=== PATIENT | female | born 1955 | race African-American/Black ===

== ENCOUNTER 2017-03-04 08:07 | Inpatient (IN) | payer SELFPAY ==
[2017-03-04 08:59] LABS: ABSOLUTE BASOPHILS # (AUTO) 0.1 10^3/uL (0.0-0.2); ABSOLUTE EOSINOPHILS # (AUTO) 0.1 10^3/uL (0.0-0.6); ABSOLUTE LYMPHOCYTES (AUTO) 1.4 10^3/uL (0.5-4.7); ABSOLUTE MONOCYTES (AUTO) 0.9 10^3/uL (0.1-1.4); ABSOLUTE NEUT (AUTO) 12.3 10^3/uL (1.7-8.2); EOSINOPHILS % (AUTO) 0.7 % (0-6); HEMATOCRIT 39.5 % (36.0-47.0); HEMOGLOBIN 13.3 g/dL (12.0-15.5); HGB HCT DIFFERENCE 0.4; LYMPHOCYTES % (AUTO) 9.6 % (13-45); MEAN CORPUSCULAR HEMOGLOBIN 28.7 pg (27.0-33.4); MEAN CORPUSCULAR HGB CONC 33.7 g/dL (32.0-36.0); MEAN CORPUSCULAR VOLUME 85 fl (80-97); MONOCYTES % (AUTO) 6.4 % (3-13); RED BLOOD COUNT 4.64 10^6/uL (3.72-5.28); RED CELL DISTRIBUTION WIDTH 14.1 % (11.5-14.0); SEGMENTED NEUTROPHILS % (AUTO) 82.3 % (42-78); WHITE BLOOD COUNT 14.9 10^3/uL (4.0-10.5)
[2017-03-04] MEDS ORDERED: ONDANSETRON HCL 8 MG TABLET PO ONE (09:10)
[2017-03-04] MEDS ORDERED: NAPROXEN 250 MG TABLET PO ONE (09:10)
[2017-03-04 09:11] LABS: AMORPHOUS SEDIMENT,URINE TRACE /HPF; APPEARANCE,URINE SLIGHTLY-CLOUDY; BILIRUBIN,URINE NEGATIVE (NEGATIVE); GLUCOSE, URINE NEGATIVE (NEGATIVE); KETONES,URINE TRACE mg/dL (NEGATIVE); LEUKOCYTE ESTERASE,URINE NEGATIVE (NEGATIVE); NITRITE,URINE NEGATIVE (NEGATIVE); PROTEIN,URINE 100 mg/dL (NEGATIVE); URINE SPECIFIC GRAVITY 1.034
[2017-03-04 09:16] LABS: ALANINE AMINOTRANSFERASE 22 U/L (9-52); ALBUMIN 3.6 g/dL (3.5-5.0); ALKALINE PHOSPHATASE 162 U/L (38-126); ANION GAP 14 (5-19); ASPARTATE AMINO TRANSFERASE 19 U/L (14-36); BILIRUBIN,DIRECT 0.6 mg/dL (0.0-0.4); BILIRUBIN,TOTAL 0.7 mg/dL (0.2-1.3); BLOOD UREA NITROGEN 11 mg/dL (7-20); CALCIUM 9.2 mg/dL (8.4-10.2); CARBON DIOXIDE 32 mmol/L (22-30); CHLORIDE 94 mmol/L (98-107); CREATININE RESULT 0.83 mg/dL (0.52-1.25); GLUCOSE 121 mg/dL (75-110); LIPASE 16.6 U/L (23-300); SODIUM 139.5 mmol/L (137-145); TOTAL PROTEIN 7.7 g/dL (6.3-8.2)
[2017-03-04 09:26] LABS: POTASSIUM 3.1 mmol/L (3.6-5.0)
--- NOTE | 2017-03-04 10:51 | RADIOLOGY REPORT (SQ) ---
EXAM DESCRIPTION: CT ABD/PELVIS WITH IV ONLY COMPLETED DATE/TIME: 03/04/2017 10:10 am REASON FOR STUDY: suprapubic pain COMPARISON: None. TECHNIQUE: CT scan of the abdomen and pelvis performed using helical scanning technique with dynamic intravenous contrast injection. No oral contrast. Images reviewed with lung, soft tissue, and bone windows. Reconstructed coronal and sagittal MPR images reviewed. Delayed images for evaluation of the urinary system also acquired. All images stored on PACS. All CT scanners at this facility use dose modulation, iterative reconstruction, and/or weight based d osing when appropriate to reduce radiation dose to as low as reasonably achievable (ALARA). [facility]: Dose Right [facility]: CareDose [facility]: Dose Right [facility]: Teradose 4D [facility]: [facility] CONTRAST TYPE AND DOSE: contrast/concentration: Isovue 370.00 mg/ml; Total Contrast Delivered: 100.0 ml; Total Saline Delivered: 72.0 ml RENAL FUNCTION: GFR > 60. RADIATION DOSE: Up-to-date CT equipment and radiation dose reduction techniques were employed. CTDIv ol: 21.1 - 30.0 mGy. DLP: 2571 mGy-cm.. LIMITATIONS: None. FINDINGS: LOWER CHEST: No significant findings. No nodules or infiltrates. LIVER: Normal size. No masses. No dilated ducts. SPLEEN: Normal size. No focal lesions. PANCREAS: No masses. No significant calcifications. No adjacent inflammation or peripancreatic fluid collections. Pancreatic duct not dilated. GALLBLADDER: No identified stones by CT criteria. No inflammatory changes to suggest cholecystitis. ADRENAL GLANDS: No significant masses or asymmetry. RIGHT KIDNEY AND URETER: No solid masses. No significant calcifications. No hydronephrosis or hyd roureter. LEFT KIDNEY AND URETER: No solid masses. No significant calcifications. No hydronephrosis or hydr oureter. AORTA AND VESSELS: No aneurysm. No dissection. Renal arteries, SMA, celiac without stenosis. RETROPERITONEUM: No retroperitoneal adenopathy, hemorrhage or masses. BOWEL AND PERITONEAL CAVITY: Acute inflammatory change involving the sigmoid colon with apparent perf oration involving the posterior wall with contained 3.5 x 3.8 x 3 point cm fluid collection. No hodan s free air or pneumatosis. Small and large bowel loops otherwise normal. APPENDIX: Normal. PELVIS: Bladder is decompressed. There is a small amount of free fluid in the pelvis. Cystic left a dnexal mass which has a somewhat tubular morphologic appearance could represent paraovarian cyst vers us hydrosalpinx. Measuring 8.9 cm in maximal dimension. Possible right ovarian cyst measuring 4.1 c m. ABDOMINAL WALL: No masses. Fat containing periumbilical hernia. . BONES: Degenerative change without fracture or suspicious osseous lesion. OTHER: No other significant finding. IMPRESSION: ACUTE INFLAMMATORY CHANGE INVOLVING THE SIGMOID COLON WITH CONTAINED PERFORATION DETA ILED ABOVE. PRESUMABLY THIS REPRESENTS A PERFORATED DIVERTICULITIS WITH PERICOLONIC ABSCESS. A PERF ORATED COLON CANCER COULD ALSO HAVE THIS APPEARANCE THEREFORE RECOMMEND FOLLOWUP COLONOSCOPY. APPARENT RIGHT OVARIAN CYST AND IT LEFT-SIDED PAROVARIAN CYST VERSUS HYDROSALPINX. RECOMMEND FOLLOW- UP PELVIC ULTRASOUND WHICH CAN BE PERFORMED IN THE NONACUTE SETTING. TECHNICAL DOCUMENTATION: JOB ID: [id number] Quality ID # [id number]: Final reports with documentation of one or more dose reduction techniques (e.g., Au tomated exposure control, adjustment of the mA and/or kV according to patient size, use of iterative reconstruction technique) 2010 [employer]- All Rights Reserved
[2017-03-04] MEDS ORDERED: HYDROMORPHONE HCL INJ/PF 2 MG/ML AMPULE IV ONE (11:00)
[2017-03-04] MEDS ORDERED: NORMAL SALINE 1000 ML 1,000 ML IV ONE (11:00)
[2017-03-04] MEDS ORDERED: ERTAPENEM SODIUM INJ 1 GM VIAL IV ONE (11:00)
--- NOTE | 2017-03-04 11:00 | ER Document Report ---
ED General - General Chief Complaint: Abdominal Pain Stated Complaint: ABDOMINAL PAIN Time Seen by Provider: 03/04/17 08:24 Mode of Arrival: Ambulatory Information source: Patient Notes: 61-year-old female presents with complaints of suprapubic bilateral lower quadrant abdominal pain of approximately 6 day duration. Patient denies any fevers or chills denies any nausea vomiting or diarrhea patient notes she has had no burning on urination no difficulty no foul smell Patient has not had a colonoscopy in the past does not have a PCP here TRAVEL OUTSIDE OF THE [place] IN LAST 30 DAYS: No - HPI Onset: Last week Onset/Duration: Persistent Quality of pain: Achy Severity: Mild Pain Level: 1 Associated symptoms: Other Exacerbated by: Denies Relieved by: Denies Similar symptoms previously: No Recently seen / treated by doctor: No - Related Data Allergies/Adverse Reactions: No Known Allergies Allergy (Verified 03/04/17 08:16) Home Medications: Current Home Medications No Home Medications 03/04/17 [History] Past Medical History - Social History Smoking Status: Never Smoker Cigarette use (# per day): No Chew tobacco use (# tins/day): No Smoking Education Provided: No Frequency of alcohol use: None Drug Abuse: None Family History: Reviewed & Not Pertinent Patient has suicidal ideation: No Patient has homicidal ideation: No - Past Medical History Cardiac Medical History: Reports: Hx Hypertension Renal/ Medical History: Denies: Hx Peritoneal Dialysis Surgical Hx: Negative Review of Systems - Review of Systems Notes: REVIEW OF SYSTEMS: CONSTITUTIONAL : Denies fever, chills, or sweats. Denies recent illness. EENT: Denies eye, ear, throat, or mouth pain or symptoms. Denies nasal or sinus congestion or discharge. Denies throat, tongue, or mouth swelling or difficulty swallowing. CARDIOVASCULAR: Denies chest pain. Denies palpitations or racing or irregular heart beat. Denies ankle edema. RESPIRATORY: Denies cough, cold, or chest congestion. Denies shortness of breath, difficulty breathing, or wheezing. GASTROINTESTINAL: admits ot abd pain GENITOURINARY: Denies difficulty urinating, painful urination, burning, frequency, blood in urine, or discharge. FEMALE GENITOURINARY: Denies vaginal bleeding, heavy or abnormal periods, irregular periods. Denies vaginal discharge or odor. MUSCULOSKELETAL: Denies back or neck pain or stiffness. Denies joint pain or swelling. SKIN: Denies rash, lesions or sores. HEMATOLOGIC : Denies easy bruising or bleeding. LYMPHATIC: Denies swollen, enlarged glands. NEUROLOGICAL: Denies confusion or altered mental status. Denies passing out or loss of consciousness. Denies dizziness or lightheadedness. Denies headache. Denies weakness or paralysis or loss of use of either side. Denies problems with gait or speech. Denies sensory loss, numbness, or tingling. Denies seizures. PSYCHIATRIC: Denies anxiety or stress. Denies depression, suicidal ideation, or homicidal ideation. ALL OTHER SYSTEMS REVIEWED AND NEGATIVE. PHYSICAL EXAMINATION: GENERAL: Well-appearing, well-nourished and in no acute distress. HEAD: Atraumatic, normocephalic. EYES: Pupils equal round and reactive to light, extraocular movements intact, conjunctiva are normal. ENT: Nares patent, oropharynx clear without exudates. Moist mucous membranes. NECK: Normal range of motion, supple without lymphadenopathy LUNGS: Breath sounds clear to auscultation bilaterally and equal. No wheezes rales or rhonchi. HEART: Regular rate and rhythm without murmurs ABDOMEN: Soft, tender in the suprapubic bilateral lower quadrants with mild guarding Female : deferred Musculoskeletal: Normal range of motion, no pitting or edema. No cyanosis. NEUROLOGICAL: Cranial nerves grossly intact. Normal speech, normal gait. Normal sensory, motor exams PSYCH: Normal mood, normal affect. SKIN: Warm, Dry, normal turgor, no rashes or lesions noted. Dictation was performed using [employer] voice recognition software Physical Exam - Vital signs Vitals: Temp Pulse Resp BP Pulse Ox 97.8 F 97 20 152/94 H 100 03/04/17 08:08 03/04/17 08:08 03/04/17 08:08 03/04/17 08:08 03/04/17 08:08 Course - Re-evaluation Re-evalutation: 03/04/17 11:11 Patient was noted to have an elevated white count, given her level of discomfort a CT of the abdomen was immediately ordered which is concerning for a perforated diverticulitis versus colon cancer, I did contact regarding admission, iv antibiotics ordered - Vital Signs Vital signs: Temp Pulse Resp BP Pulse Ox 97.8 F 97 20 152/94 H 100 03/04/17 08:08 03/04/17 08:08 03/04/17 08:45 03/04/17 08:08 03/04/17 08:08 - Laboratory Result Diagrams: 03/04/17 08:48 03/04/17 08:48 Laboratory results interpreted by me: 03/04/17 03/04/17 03/04/17 08:48 08:48 08:48 WBC 14.9 H RDW 14.1 H Seg Neutrophils % 82.3 H Lymphocytes % 9.6 L Absolute Neutrophils 12.3 H Potassium 3.1 L Chloride 94 L Carbon Dioxide 32 H Glucose 121 H Direct Bilirubin 0.6 H Alkaline Phosphatase 162 H Lipase 16.6 L Urine Protein 100 H Urine Ketones TRACE H Urine Urobilinogen 4.0 H - Diagnostic Test Radiology reviewed: Image reviewed, Reports reviewed - Perforated diverticulitis noted
--- NOTE | 2017-03-04 12:50 | RADIOLOGY REPORT (SQ) ---
EXAM DESCRIPTION: U/S NON OB PEL TV W/DOPPLER COMPLETED DATE/TIME: 03/04/2017 12:41 pm REASON FOR STUDY: pelvic mass? COMPARISON: None. TECHNIQUE: Dynamic and static grayscale images acquired of the pelvis via transvaginal approach and recorded on PACS. Additional selected color Doppler and spectral images recorded. LIMITATIONS: LIMITED DUE TO BODY WALL ACOUSTICS. FINDINGS: UTERUS: Poorly visualized. No gross abnormality. ENDOMETRIAL STRIPE: Not confidently identified. CERVIX: No nabothian cysts. RIGHT OVARY: Ovary not visualized. RIGHT OVARY DOPPLER: Ovary not visualized. LEFT OVARY: Ovary not visualized. Septated cystic mass left adnexal with debris measuring 8.5 x 6.9 x 6.2 cm. No definite soft tissue component or color flow. LEFT OVARY DOPPLER: Ovary not visualized. FREE FLUID: None noted. OTHER: No other significant finding. MEASUREMENTS: UTERUS: 9.9 x 5.3 cm. ENDOMETRIAL STRIPE: Not visualized. RIGHT OVARY: Not visualized. LEFT OVARY: Not visualized. IMPRESSION: EXTREME LIMITED TRANSVAGINAL PELVIC ULTRASOUND. OVARIES ARE NOT CONFIDENTLY IDENTIFIED. COMPLEX CYSTIC MASS LEFT ADNEXAL CORRESPONDING TO FINDING ON CT. NO DEFINITE SOFT TISSUE COMPONENT HOWEVER DIFFERENTIAL REMAINS PAROVARIAN CYST OR HYDROSALPINX. RECOMMEND GYNECOLOGIC CONSULTATION. FOLLOW-UP PELVIC MRI MAY BE USEFUL FOR COMPLETE CHARACTERIZATION. TECHNICAL DOCUMENTATION: JOB ID: [id number]- All Rights Reserved
--- NOTE | 2017-03-04 12:57 | PDOC H&P ---
History of Present Illness Patient complains of: Abdominal pain History of Present Illness: ELIO COLEMAN is a 61 year old female Patient presents to the emergency department brought in by her friend complaining of a one-week history of abdominal pain multiple episodes of nausea and vomiting dark urine and last bowel movement 1 week ago. She denies previous episodes, history of abdominal problems. She has never had a colonoscopy. She was seen in the emergency department where she had a CT scan of the abdomen and pelvis without oral contrast which showed findings consistent with acute sigmoid inflammation due to diverticulitis versus malignancy. Surgery was consulted and she was advised admission. Patient states she has had a bottle of Pepto-Bismol several days ago without relief. She does not see a medical doctor does not take any medications. Past Medical History Cardiac Medical History: Reports: Hypertension Social History Smoking Status: Never Smoker Frequency of Alcohol Use: None Drugs: None Family History Family History: Reviewed & Not Pertinent, CVA Parental Family History Reviewed: Yes Children Family History Reviewed: Yes Sibling(s) Family History Reviewed.: Yes Medication/Allergy Home Medications: No Home Medications 03/04/17 Allergies/Adverse Reactions: No Known Allergies Allergy (Verified 03/04/17 08:16) Review of Systems Constitutional: PRESENT: as per HPI. ABSENT: chills, fever(s), headache(s), weight gain, weight loss Eyes: ABSENT: visual disturbances Ears: ABSENT: hearing changes Gastrointestinal: PRESENT: as per HPI Genitourinary: ABSENT: dysuria, hematuria Musculoskeletal: ABSENT: joint swelling Integumentary: ABSENT: rash, wounds Neurological: ABSENT: abnormal gait, abnormal speech, confusion, dizziness, focal weakness, syncope Physical Exam Vital Signs: Temp Pulse Resp BP Pulse Ox 98.2 F 92 18 156/84 H 95 03/04/17 11:29 03/04/17 11:29 03/04/17 11:29 03/04/17 11:29 03/04/17 11:29 Intake & Output 03/03/17 03/04/17 03/05/17 06:59 06:59 06:59 Weight 127.6 kg General appearance: PRESENT: no acute distress, other - She is sweating. Head exam: PRESENT: normocephalic Eye exam: PRESENT: EOMI Mouth exam: PRESENT: moist Neck exam: PRESENT: full ROM Respiratory exam: PRESENT: clear to auscultation pinky Cardiovascular exam: PRESENT: RRR Pulses: PRESENT: normal dorsalis pedis pul, +1 pedal pulses bilateral, +2 pedal pulses bilateral GI/Abdominal exam: PRESENT: diminished bowel sounds, other - Obese minimal tenderness in the pelvic region. No peritoneal signs no organomegaly. Psychiatric exam: PRESENT: appropriate affect Skin exam: PRESENT: other - Perspiring Results Laboratory Results: 03/04/17 08:48 03/04/17 08:48 03/04/17 03/04/17 03/04/17 08:48 08:48 08:48 WBC 14.9 H RBC 4.64 Hgb 13.3 Hct 39.5 MCV 85 MCH 28.7 MCHC 33.7 RDW 14.1 H Plt Count 324 Seg Neutrophils % 82.3 H Lymphocytes % 9.6 L Monocytes % 6.4 Eosinophils % 0.7 Basophils % 1.0 Absolute Neutrophils 12.3 H Absolute Lymphocytes 1.4 Absolute Monocytes 0.9 Absolute Eosinophils 0.1 Absolute Basophils 0.1 Sodium 139.5 Potassium 3.1 L Chloride 94 L Carbon Dioxide 32 H Anion Gap 14 BUN 11 Creatinine 0.83 Est GFR ( Amer) > 60 Est GFR (Non-Af Amer) > 60 Glucose 121 H Calcium 9.2 Total Bilirubin 0.7 AST 19 ALT 22 Alkaline Phosphatase 162 H Total Protein 7.7 Albumin 3.6 Lipase 16.6 L Urine Color DARK YELLOW Urine Appearance SLIGHTLY-CLOUDY Urine pH 5.0 Ur Specific [place] 1.034 Urine Protein 100 H Urine Glucose (UA) NEGATIVE Urine Ketones TRACE H Urine Blood NEGATIVE Urine Nitrite NEGATIVE Ur Leukocyte Esterase NEGATIVE Urine WBC (Auto) 7 Urine RBC (Auto) 5 Impressions: Abdomen/Pelvis CT 03/04/17 09:17 IMPRESSION: ACUTE INFLAMMATORY CHANGE INVOLVING THE SIGMOID COLON WITH CONTAINED PERFORATION DETAILED ABOVE. PRESUMABLY THIS REPRESENTS A PERFORATED DIVERTICULITIS WITH PERICOLONIC ABSCESS. A PERFORATED COLON CANCER COULD ALSO HAVE THIS APPEARANCE THEREFORE RECOMMEND FOLLOWUP COLONOSCOPY. APPARENT RIGHT OVARIAN CYST AND IT LEFT-SIDED PAROVARIAN CYST VERSUS HYDROSALPINX. RECOMMEND FOLLOW-UP PELVIC ULTRASOUND WHICH CAN BE PERFORMED IN THE NONACUTE SETTING. Note this is a limited study due to the absence of oral contrast. The patient has contrast in the right colon likely due to Pepto-Bismol effect Assessment & Plan - Diagnosis (1) Abdominal pain Plan: Assessment: The patient has 1 week history of abdominal pain, nausea vomiting leukocytosis pelvic tenderness and CT scan findings consistent with emili-sigmoid colonic inflammation. There also appears to be a extracolonic process possibly contained abscess. Absence of oral contrast in this region further delineation. Plan: 1. Keep on clear liquids, IV fluids, intravenous antibiotics. 2. Patient should undergo colonoscopic evaluation either hospitalization or thereafter pending her clinical performance (2) Colitis Plan: Above unclear whether this represents diverticular disease or malignancy of the sigmoid colon; again colonoscopic evaluation indicated (4) Pelvic mass in female Is this a current diagnosis for this admission?: YesPlan: Assessment to be clarified by transvaginal ultrasonography, consideration for gynecologic consultation. This may represent a tubo ovarian cyst, mass, or other collection. - Time Time Spent: 50 to 70 Minutes Critical Time spent with patient: 15-24 minutes Medications reviewed and adjusted accordingly: Yes Anticipated discharge: Home - Inpatient Certification Based on my medical assessment, after consideration of the patient's comorbidities, presenting symptoms, or acuity I expect that the services needed warrant INPATIENT care.: Yes I certify that my determination is in accordance with my understanding of Medicare's requirements for reasonable and necessary INPATIENT services [42 CFR 412.3e].: Yes Medical Necessity: Need For IV Fluids, Need for Pain Control, Need for IV Antibiotics
[2017-03-04] MEDS: POTASSI CL 40 MEQ/NS 1L 1,000 ML IV PRN ×2 (13:27→20:18)
[2017-03-04] MEDS ORDERED: POTASSIUM CHLORIDE 10 MEQ TABLET.SA PO ONE (14:00)
[2017-03-04] MEDS ORDERED: BUMETANIDE 1 MG TABLET PO SCH (18:00)
[2017-03-04] MEDS: KETOROLAC TROMETHAMINE INJ/PF 30 MG/1 ML SDV IV PRN (18:31)
[2017-03-05] MEDS: KETOROLAC TROMETHAMINE INJ/PF 30 MG/1 ML SDV IV PRN ×3 (00:56→12:21)
[2017-03-05] MEDS: POTASSI CL 40 MEQ/NS 1L 1,000 ML IV PRN ×3 (02:19→12:59)
--- NOTE | 2017-03-05 05:39 | PDOC CONSULTATION ---
Consultation Consult Date: 03/04/17 Attending physician:: NORMAN WATERS Consult reason:: 61 yo with admission for abdominal pain. Incidental finding of potential adnexal cyst History of Present Illness Admission Date/PCP: 03/04/17 12:46 Patient complains of: abdominal pain, nausea, vomiting History of Present Illness: ELIO COLEMAN is a 61 year old female Patient presents to the emergency department brought in by her friend complaining of a one-week history of abdominal pain multiple episodes of nausea and vomiting dark urine and last bowel movement 1 week ago. She denies previous episodes, history of abdominal problems. She has never had a colonoscopy. She was seen in the emergency department where she had a CT scan of the abdomen and pelvis without oral contrast which showed findings consistent with acute sigmoid inflammation due to diverticulitis versus malignancy. Surgery was consulted and she was advised admission. Patient states she has had a bottle of Pepto-Bismol several days ago without relief. She does not see a medical doctor does not take any medications. Past Medical History Cardiac Medical History: Reports: Hypertension Social History Smoking Status: Never Smoker Frequency of Alcohol Use: None Drugs: None Hx Prescription Drug Abuse: No - Advance Directive Resuscitation Status: Full Code Family History Family History: Reviewed & Not Pertinent, CVA Parental Family History Reviewed: Yes Children Family History Reviewed: Yes Sibling(s) Family History Reviewed.: Yes Medication/Allergy Home Medications: No Home Medications 03/04/17 Allergies/Adverse Reactions: No Known Allergies Allergy (Verified 03/04/17 08:16) Physical Exam - Physical Exam Vital Signs: Temp Pulse Resp BP Pulse Ox 98.4 F 100 17 172/56 H 98 03/04/17 23:10 03/04/17 23:10 03/04/17 23:10 03/04/17 23:10 03/04/17 23:10 Intake & Output 03/03/17 03/04/17 03/05/17 06:59 06:59 06:59 Intake Total 2371 Output Total 1500 Balance 871 Weight 128.3 kg General appearance: PRESENT: no acute distress Head exam: PRESENT: atraumatic GI/Abdominal exam: PRESENT: guarding, soft, tenderness Result Impressions: Abdomen/Pelvis CT 03/04/17 09:17 IMPRESSION: ACUTE INFLAMMATORY CHANGE INVOLVING THE SIGMOID COLON WITH CONTAINED PERFORATION DETAILED ABOVE. PRESUMABLY THIS REPRESENTS A PERFORATED DIVERTICULITIS WITH PERICOLONIC ABSCESS. A PERFORATED COLON CANCER COULD ALSO HAVE THIS APPEARANCE THEREFORE RECOMMEND FOLLOWUP COLONOSCOPY. APPARENT RIGHT OVARIAN CYST AND IT LEFT-SIDED PAROVARIAN CYST VERSUS HYDROSALPINX. RECOMMEND FOLLOW-UP PELVIC ULTRASOUND WHICH CAN BE PERFORMED IN THE NONACUTE SETTING. Transvaginal US 03/04/17 11:23 IMPRESSION: EXTREME LIMITED TRANSVAGINAL PELVIC ULTRASOUND. OVARIES ARE NOT CONFIDENTLY IDENTIFIED. COMPLEX CYSTIC MASS LEFT ADNEXAL CORRESPONDING TO FINDING ON CT. NO DEFINITE SOFT TISSUE COMPONENT HOWEVER DIFFERENTIAL REMAINS PAROVARIAN CYST OR HYDROSALPINX. RECOMMEND GYNECOLOGIC CONSULTATION. FOLLOW- UP PELVIC MRI MAY BE USEFUL FOR COMPLETE CHARACTERIZATION. Status: Imported from PACS Assessment & Plan - Diagnosis (1) Abdominal pain Qualifiers: Abdominal location: left lower quadrant Qualified Code(s): R10.32 - Left lower quadrant pain Is this a current diagnosis for this admission?: Yes (2) Colitis Is this a current diagnosis for this admission?: Yes (3) Obesity Qualifiers: Obesity type: unspecified obesity type Obesity classification: adult class 3 (BMI >= 40) Body mass index: BMI 50.0-59.9 (4) Pelvic mass in female Is this a current diagnosis for this admission?: Yes - Time Time Spent: 30 to 50 Minutes Critical Time spent with patient: Less than 15 minutes Medications reviewed and adjusted accordingly: Yes - Plan Summary Plan Summary: discussed with Dr. Lam and if/when patient has diagnostic lap, please feel free to contact DRAGGER for assistance if tube and ovary is affected. Pt has low risks for malignancy based on negative family history and simple fluid filled appearance of cyst on imaging. Would recommend tumor markers which I've ordered. If markers are raised, may consider [facility] Onc referral as outpatient.
[2017-03-05] MEDS ORDERED: BUMETANIDE 1 MG TABLET PO SCH (08:00)
[2017-03-05] MEDS: ERTAPENEM SODIUM 1 GM in NORMAL SALINE 50 ML IV SCH (09:27)
[2017-03-05 11:07] LABS: ANION GAP 14 (5-19); BLOOD UREA NITROGEN 9 mg/dL (7-20); CALCIUM 8.9 mg/dL (8.4-10.2); CHLORIDE 103 mmol/L (98-107); GLUCOSE 100 mg/dL (75-110); SODIUM 139.1 mmol/L (137-145)
[2017-03-05 11:13] LABS: CARBON DIOXIDE 22 mmol/L (22-30); POTASSIUM 4.4 mmol/L (3.6-5.0)
--- NOTE | 2017-03-05 16:43 | PDOC PROGRESS REPORT ---
Subjective Progress Note for:: 03/05/17 Subjective:: Today she feels better like to start on diet. Physical Exam Vital Signs: Temp Pulse Resp BP Pulse Ox 98.1 F 105 H 17 192/90 H 99 03/05/17 11:22 03/05/17 11:22 03/05/17 11:22 03/05/17 15:23 03/05/17 11:22 Intake & Output 03/04/17 03/05/17 03/06/17 06:59 06:59 06:59 Intake Total 2371 Output Total 1500 Balance 871 Weight 128.3 kg General appearance: PRESENT: no acute distress GI/Abdominal exam: PRESENT: other - Examined, much softer, no peritoneal signs no rigidity. Results Laboratory Results: 03/05/17 05:51 03/05/17 05:51 Sodium 139.1 Potassium 4.4 D Chloride 103 Carbon Dioxide 22 D Anion Gap 14 BUN 9 Creatinine 0.70 Est GFR ( Amer) > 60 Est GFR (Non-Af Amer) > 60 Glucose 100 Calcium 8.9 Impressions: Abdomen/Pelvis CT 03/04/17 09:17 IMPRESSION: ACUTE INFLAMMATORY CHANGE INVOLVING THE SIGMOID COLON WITH CONTAINED PERFORATION DETAILED ABOVE. PRESUMABLY THIS REPRESENTS A PERFORATED DIVERTICULITIS WITH PERICOLONIC ABSCESS. A PERFORATED COLON CANCER COULD ALSO HAVE THIS APPEARANCE THEREFORE RECOMMEND FOLLOWUP COLONOSCOPY. APPARENT RIGHT OVARIAN CYST AND IT LEFT-SIDED PAROVARIAN CYST VERSUS HYDROSALPINX. RECOMMEND FOLLOW-UP PELVIC ULTRASOUND WHICH CAN BE PERFORMED IN THE NONACUTE SETTING. Transvaginal US 03/04/17 11:23 IMPRESSION: EXTREME LIMITED TRANSVAGINAL PELVIC ULTRASOUND. OVARIES ARE NOT CONFIDENTLY IDENTIFIED. COMPLEX CYSTIC MASS LEFT ADNEXAL CORRESPONDING TO FINDING ON CT. NO DEFINITE SOFT TISSUE COMPONENT HOWEVER DIFFERENTIAL REMAINS PAROVARIAN CYST OR HYDROSALPINX. RECOMMEND GYNECOLOGIC CONSULTATION. FOLLOW- UP PELVIC MRI MAY BE USEFUL FOR COMPLETE CHARACTERIZATION. Assessment & Plan - Diagnosis (1) Abdominal pain Qualifiers: Abdominal location: left lower quadrant Qualified Code(s): R10.32 - Left lower quadrant pain Is this a current diagnosis for this admission?: YesPlan: Impression is that of acute sigmoid inflammatory process likely diverticulitis however cannot rule out occult neoplasm; deviated adnexal masses evaluated by OB /[facility]TE[facility] SERVICE SUPERVISOR, likely benign complex cyst. Overall patient is clinically improved Plan: 1. Start diet slowly 2. Will have internal medicine evaluate uncontrolled hypertension 3. Again suggested she continue to improve and anticipate discharge home in the next 24-48 hours with for outpatient endoscopic evaluation (2) Colitis Is this a current diagnosis for this admission?: Yes (3) Obesity Qualifiers: Obesity type: unspecified obesity type Obesity classification: adult class 3 (BMI >= 40) Body mass index: BMI 50.0-59.9 (4) Pelvic mass in female Is this a current diagnosis for this admission?: Yes
[2017-03-05] MEDS ORDERED: MORPHINE SULFATE 10 MG/ML INJ IV PRN (16:56)
[2017-03-05] MEDS ORDERED: LOSARTAN POTASSIUM 50 MG TABLET PO ONE (17:15)
[2017-03-05] MEDS: MORPHINE SULFATE 10 MG/ML INJ IV PRN ×2 (17:23→21:30)
[2017-03-05] MEDS: DEXTROSE 5%-1/2 NORMAL SALINE 1,000 ML IV PRN (17:28)
[2017-03-05 17:46] LABS: ABSOLUTE BASOPHILS # (AUTO) 0.1 10^3/uL (0.0-0.2); ABSOLUTE EOSINOPHILS # (AUTO) 0.1 10^3/uL (0.0-0.6); ABSOLUTE LYMPHOCYTES (AUTO) 1.5 10^3/uL (0.5-4.7); ABSOLUTE MONOCYTES (AUTO) 1.2 10^3/uL (0.1-1.4); BASOPHILS % (AUTO) 0.5 % (0-2); EOSINOPHILS % (AUTO) 0.5 % (0-6); HEMATOCRIT 39.2 % (36.0-47.0); HEMOGLOBIN 12.9 g/dL (12.0-15.5); HGB HCT DIFFERENCE -0.5; LYMPHOCYTES % (AUTO) 9.2 % (13-45); MEAN CORPUSCULAR HEMOGLOBIN 28.2 pg (27.0-33.4); MEAN CORPUSCULAR VOLUME 85 fl (80-97); MONOCYTES % (AUTO) 7.4 % (3-13); RED CELL DISTRIBUTION WIDTH 13.9 % (11.5-14.0); SEGMENTED NEUTROPHILS % (AUTO) 82.4 % (42-78); WHITE BLOOD COUNT 15.8 10^3/uL (4.0-10.5)
[2017-03-05 18:07] LABS: URINE BARBITURATES SCREEN NEGATIVE; URINE METHADONE SCREEN NEGATIVE; URINE OPIATES LOW NEGATIVE; URINE PHENCYCLIDINE SCREEN NEGATIVE
--- NOTE | 2017-03-05 18:24 | CONSULTATION REPORT E ---
Consultation Report NAME: ELIO COLEMAN : 1955 AGE: 61Y DATE: 03/05/2017 ROOM: 430 A TO: ELIO CAMARGO M.D. FROM: LOUISA GARCIA M.D. Requesting Physician PRIMARY CARE PHYSICIAN: None. REASON FOR CONSULTATION: Uncontrolled hypertension. CHIEF COMPLAINT: Abdominal pain. HISTORY OF PRESENT ILLNESS: The patient is a 61-year-old female who presented to the emergency department with approximately 1 week of abdominal pain. She reports she could not eat, she had a crampy abdominal pain, and her last bowel movement was approximately 1 week ago. Patient reports that she has not had much of an improvement in her abdominal pain and she has yet to have a bowel movement at this time. Patient reports that she normally is able to walk greater than a mile without any difficulty with her breathing. Patient currently denies any chest pain, shortness of breath, extremity swelling. She reports her nausea and vomiting has improved. PAST MEDICAL HISTORY: She denies, although she has not seen a doctor in more than 5 years. PAST SURGICAL HISTORY: None. SOCIAL HISTORY: She denies tobacco, denies alcohol, denies illicit drugs. FAMILY HISTORY: Her mother of COPD and her father is currently alive and reports that he is healthy. CODE STATUS: She is FULL CODE. Her significant other, Ervin Carpenter, is her surrogate decision maker. MEDICATIONS: She takes no home medication. She does report taking keua-[id number]-[id number] Aleve and Pepto-Bismol. ALLERGIES: She reports no drug allergies. REVIEW OF SYSTEMS: CONSTITUTIONAL: Patient admits to antecedent fever and chills, subjective, as well as fatigue and anorexia prior to admission. EYES: Denies visual disturbance, but wears glasses. EARS: Denies hearing changes. NOSE, MOUTH, THROAT: Denies mouth pain, sore throat, headache. CARDIOVASCULAR: Denies chest pain, dyspnea on exertion, edema, orthopnea, and palpitations. RESPIRATORY: Denies dyspnea, cough, hemoptysis, sputum production. ABDOMEN: Admits to abdominal pain, bloating, constipation, nausea and vomiting. Denies melena and hematochezia. GENITOURINARY: Denies dysuria, hematuria, nocturia. MUSCULOSKELETAL: Admits to occasional arthritic right shoulder and bilateral knee pains. INTEGUMENTARY: Denies rash, lesion, or wound. NEUROLOGIC: Denies numbness, weakness, dizziness, syncope, paresthesia. PSYCHIATRIC: Denies SI or HI. Denies hallucinations or delusions. Denies depression or anxiety. ENDOCRINE: Denies polydipsia, polyuria, polyphagia. Denies hot or cold intolerance. Admits to facial hair. HEMATOLOGIC/LYMPHATIC: Denies easy bleeding or bruising. PHYSICAL EXAMINATION: VITAL SIGNS: The patient's temperature is 98.1, pulse of 105, blood pressure recorded at 192/90, respiratory rate of 17, saturation of 99% on room air. GENERAL: The patient is a well-fed, well-nourished, obese female who appears to be slightly pale. HEENT: Patient is atraumatic, normocephalic. Her pupils are equal, round, and reactive to light and accommodation. Extraocular movements are intact. She has no scleral icterus. Her conjunctivae is pink and non-injected. Mucosa is moist. NECK: Patient's neck is supple without JVD, lymphadenopathy, or thyromegaly. Her trachea is midline. CHEST: Examination is nontender to palpation. CARDIOVASCULAR: Regular rate and rhythm without appreciable murmur, rub, or gallop, but is limited by her body habitus. RESPIRATORY: Clear to auscultation bilaterally without wheezes, rhonchi, or rales. ABDOMEN: Protuberant, distended, firm, but not rigid, and diffusely tender to palpation with voluntary guarding. Patient has notable absence of bowel sounds. GENITOURINARY: Deferred. RECTAL: Deferred. MUSCULOSKELETAL: Strength is 5/5 in her upper and lower extremities and she has no deformities. VASCULAR: Patient has 2+ peripheral pulses. NEUROLOGIC: Cranial nerves 2-12 are grossly intact without focal deficits, and she is awake, alert, and oriented x3. PSYCHIATRIC: She has a normal mood and affect. INTEGUMENT: No appreciable rashes, lesions, or wounds. DIAGNOSTIC DATA: Laboratory studies are as follows: On 03/04, her white count was 14.9, hemoglobin of 13.3, hematocrit of 39.5, and platelets of 324. Today, her sodium is 139, potassium of 4.4, chloride 103, CO2 of 22, BUN of 9, creatinine of 0.7, glucose of 100, calcium of 8.9. CEA was 1.6 and CA-125 is currently pending. The patient's urine from 03/04/2017 reveals 100 protein with a specific gravity of 1.034, trace ketones, and a 4 urobilinogen, 7 *------*, trace bacteria, [address] findings and transvaginal ultrasound findings: CT of the abdomen and pelvis done on 03/04/2017 reveals acute inflammatory changes involving the sigmoid colon, which contains perforation as detailed above, presumably representing a perforated diverticulitis with pericolonic abscess, a perforated colon cancer could also have the same appearance, therefore, recommend followup colonoscopy. Apparent right ovarian cyst and left-sided paraovarian cyst versus hydrosalpinx. Transvaginal ultrasound done on 03/04/2017 reveals extremely limited with a septated left adnexal mass with debris measuring 8.5 x 6.9 x 6.2 cm. Again, with differential including paraovarian cyst or hydrosalpinx. IMPRESSION: This is a 61-year-old female with: 1. Acute diverticulitis with a perforation with abscess formation. 2. Sepsis secondary to #1. 3. Hypertensive urgency. 4. Morbid obesity with a BMI of 50.1. 5. Left paraovarian mass. 6. Hypokalemia, improved. 7. Dehydration, improved. PLAN: 1. For the patient's ruptured diverticulum and abdominal abscess, I deferred this and all matters related to this and her sepsis condition to the primary surgical team. I do agree with their use of a carbapenem or the use of Zosyn at this time for this. Recommend that this be surgically drained or done through IR. 2. Ovarian mass: For this condition, defer to L[facility] COATER who was consulted on this case. 3. For the patient's hypertensive urgency, will initiate patient on Cozaar 50 mg p.o. q. 12 and Norvasc 10 mg p.o. every bedtime with a goal systolic of less than 165. Will add IV hydralazine 10 mg IV q. 4 p.r.n. systolic greater 165 for this condition. At this time, I also feel that the patient's extreme hypertension is likely related to her worsening intraabdominal process, as the patient does appear to be quite tender at this time and recommend adequate pain management. Will stop Toradol as this can also raise the patient's blood pressure, and she does also report taking Aleve at home, which can also worsen her blood pressure. Will initiate patient on morphine 5 mg IV q. 4 p.r.n. and obtain UDS. Will also stop the patient's IV fluids, as she is likely becoming mildly volume overloaded at this time. Place her on D5 half at 63 an hour, as the patient is currently n.p.o. Have discussed with patient a 2,000 mg sodium restriction upon discharge and will place patient educator consultation for hypertension. 4. For the patient's DVT prophylaxis, will place SCD's and SLAVA hose and recommend that primary surgical team selects VTE prophylaxis due to the possibility of surgery. 5. For the patient's code status, she is, again, a FULL CODE and her significant other is her surrogate decision maker. TIME SPENT: Total time spent with patient including physical examination, coordination of care, and discussion with patient and primary team was 45 minutes. At this time, we thank our surgical colleagues kindly for this interesting consult and we will sign off of this case. DICTATING PHYSICIAN: ELIO CAMARGO M.D. [id number] PHY#: [id number] ID: [id number] JOB#: [id number] ACCT: [id number] cc:ELIO CAMARGO M.D. >
[2017-03-05] MEDS: HYDRALAZINE HCL INJ/PF 20 MG/1 ML SDV IV PRN ×2 (19:50→23:24)
[2017-03-05] MEDS: AMLODIPINE BESYLATE 10 MG TABLET PO SCH (21:30)
[2017-03-06] MEDS: MORPHINE SULFATE 10 MG/ML INJ IV PRN ×4 (04:27→21:58)
[2017-03-06] MEDS: HYDRALAZINE HCL INJ/PF 20 MG/1 ML SDV IV PRN (04:27)
--- NOTE | 2017-03-06 08:25 | Physician Advisory Note ---
Physician Advisor ProgressNote .: [facility] have reviewed the medical record for this patient. Physician Advisor Statement: Nice documentation of pt's morbid obesity, which undoubtedly makes eval of abd pain more difficult. Please consider documentin. "intestinal perforation w/abscess" 2. "hypertensive urgency" 3. STatus: Pt appropriate to change to Inpt status given developing/worsening tachycardia & leukocytosis with continued lack of BM output, continued abd pain , despite IVF & IV abx & continued NPO status, requiring morphine IV 3x already in the last (less than) 24hrs for pain control. Thanks! CK
[2017-03-06] MEDS: LOSARTAN POTASSIUM 50 MG TABLET PO SCH ×2 (09:16→21:53)
[2017-03-06] MEDS: ERTAPENEM SODIUM 1 GM in NORMAL SALINE 50 ML IV SCH (09:41)
--- NOTE | 2017-03-06 19:08 | PDOC PROGRESS REPORT ---
Subjective Subjective:: patient is hungry but still c/o left sided abdominal Physical Exam Vital Signs: Temp Pulse Resp BP Pulse Ox 99.7 F 100 16 147/77 H 97 03/06/17 16:00 03/06/17 16:00 03/06/17 16:00 03/06/17 16:00 03/06/17 16:00 Intake & Output 03/05/17 03/06/17 03/07/17 06:59 06:59 06:59 Intake Total 826 Balance 826 GI/Abdominal exam: PRESENT: tenderness - left side Results Impressions: Abdomen/Pelvis CT 03/04/17 09:17 IMPRESSION: ACUTE INFLAMMATORY CHANGE INVOLVING THE SIGMOID COLON WITH CONTAINED PERFORATION DETAILED ABOVE. PRESUMABLY THIS REPRESENTS A PERFORATED DIVERTICULITIS WITH PERICOLONIC ABSCESS. A PERFORATED COLON CANCER COULD ALSO HAVE THIS APPEARANCE THEREFORE RECOMMEND FOLLOWUP COLONOSCOPY. APPARENT RIGHT OVARIAN CYST AND IT LEFT-SIDED PAROVARIAN CYST VERSUS HYDROSALPINX. RECOMMEND FOLLOW-UP PELVIC ULTRASOUND WHICH CAN BE PERFORMED IN THE NONACUTE SETTING. Transvaginal US 03/04/17 11:23 IMPRESSION: EXTREME LIMITED TRANSVAGINAL PELVIC ULTRASOUND. OVARIES ARE NOT CONFIDENTLY IDENTIFIED. COMPLEX CYSTIC MASS LEFT ADNEXAL CORRESPONDING TO FINDING ON CT. NO DEFINITE SOFT TISSUE COMPONENT HOWEVER DIFFERENTIAL REMAINS PAROVARIAN CYST OR HYDROSALPINX. RECOMMEND GYNECOLOGIC CONSULTATION. FOLLOW- UP PELVIC MRI MAY BE USEFUL FOR COMPLETE CHARACTERIZATION. Assessment & Plan - Diagnosis (1) Colitis Is this a current diagnosis for this admission?: Yes - Plan Summary Plan Summary: A/ Left colitis vs. acute diverticulitis patient is still c/o left side abdominal discomfort P/ advance diet to low residue diet d/c home in AM on oral antibiotics follow up colonoscopy as outpatient once the episode of colitis or docerticulitis has resolved
[2017-03-06] MEDS: AMLODIPINE BESYLATE 10 MG TABLET PO SCH (21:52)
[2017-03-07] MEDS: DEXTROSE 5%-1/2 NORMAL SALINE 1,000 ML IV PRN (02:16)
[2017-03-07] MEDS: MORPHINE SULFATE 10 MG/ML INJ IV PRN ×3 (04:11→20:14)
[2017-03-07] MEDS: LOSARTAN POTASSIUM 50 MG TABLET PO SCH ×2 (10:10→21:11)
[2017-03-07] MEDS: ERTAPENEM SODIUM 1 GM in NORMAL SALINE 50 ML IV SCH (10:11)
--- NOTE | 2017-03-07 12:51 | EKG REPORT ---
SEVERITY:- BORDERLINE ECG - SINUS TACHYCARDIA BORDERLINE INFERIOR Q WAVES BORDERLINE T ABNORMALITIES, ANT-LAT LEADS : Confirmed by: Shanika Duncan MD 07-Mar-2017 12:50:45
[2017-03-07] MEDS ORDERED: DEXTROSE 40% GEL 15 GM TUBE PO PRN ×2 (14:56)
[2017-03-07] MEDS ORDERED: DEXTROSE 50%-WATER 25 GM/50 ML DISP.SYRIN IV PRN ×2 (14:56)
[2017-03-07] MEDS ORDERED: GLUCAGON,HUMAN RECOMB 1 MG INJ SUBCUT PRN (14:56)
[2017-03-07] MEDS ORDERED: NORMAL SALINE 1000 ML 1,000 ML IV PRN ×2 (14:59→15:45)
[2017-03-07] MEDS ORDERED: ACETAMINOPHEN 325 MG TABLET PO PRN (15:01)
--- NOTE | 2017-03-07 15:17 | PDOC PROGRESS REPORT ---
Subjective Progress Note for:: 03/07/17 Subjective:: patient not feeling well today, poor appetite, low grade fever (100) Physical Exam Vital Signs: Temp Pulse Resp BP Pulse Ox 99.1 F 108 H 20 149/68 H 96 03/07/17 11:55 03/07/17 11:55 03/07/17 11:55 03/07/17 11:55 03/07/17 11:55 Intake & Output 03/06/17 03/07/17 03/08/17 06:59 06:59 06:59 Intake Total 1782 Output Total 600 Balance 1182 Weight 130.6 kg Respiratory exam: PRESENT: clear to auscultation pinky Cardiovascular exam: PRESENT: RRR GI/Abdominal exam: PRESENT: tenderness - left lateral quadrant Results Impressions: Abdomen/Pelvis CT 03/04/17 09:17 IMPRESSION: ACUTE INFLAMMATORY CHANGE INVOLVING THE SIGMOID COLON WITH CONTAINED PERFORATION DETAILED ABOVE. PRESUMABLY THIS REPRESENTS A PERFORATED DIVERTICULITIS WITH PERICOLONIC ABSCESS. A PERFORATED COLON CANCER COULD ALSO HAVE THIS APPEARANCE THEREFORE RECOMMEND FOLLOWUP COLONOSCOPY. APPARENT RIGHT OVARIAN CYST AND IT LEFT-SIDED PAROVARIAN CYST VERSUS HYDROSALPINX. RECOMMEND FOLLOW-UP PELVIC ULTRASOUND WHICH CAN BE PERFORMED IN THE NONACUTE SETTING. Transvaginal US 03/04/17 11:23 IMPRESSION: EXTREME LIMITED TRANSVAGINAL PELVIC ULTRASOUND. OVARIES ARE NOT CONFIDENTLY IDENTIFIED. COMPLEX CYSTIC MASS LEFT ADNEXAL CORRESPONDING TO FINDING ON CT. NO DEFINITE SOFT TISSUE COMPONENT HOWEVER DIFFERENTIAL REMAINS PAROVARIAN CYST OR HYDROSALPINX. RECOMMEND GYNECOLOGIC CONSULTATION. FOLLOW- UP PELVIC MRI MAY BE USEFUL FOR COMPLETE CHARACTERIZATION. Assessment & Plan - Diagnosis (1) Colitis Is this a current diagnosis for this admission?: Yes - Plan Summary Plan Summary: A/ Perforated signoid colon with contained fluid collection/abscess patient not doing well clinically (anorexia, low grade temperature P/ Repeat CT scan A/P today CBC, BMP, PT/PTT possible IR drainage of fluid collection today/tomorrow Start Levaquin Flagyl Stop Invanz
[2017-03-07 15:52] LABS: PARTIAL THROMBOPLASTIN TIME 34.4 SEC (23.5-35.8); PROTHROMBIN TIME 14.7 SEC (11.4-15.4)
[2017-03-07] MEDS ORDERED: METRONIDAZOLE RTU 500 MG/NS 100 ML IV ONE (16:00)
[2017-03-07] MEDS ORDERED: METRONIDAZOLE 500 MG/NS RTU 100 ML IV ONE (16:00)
[2017-03-07] MEDS ORDERED: LEVOFLOXACIN RTU 750 MG/D5W 150 ML IV SCH (16:00)
[2017-03-07] MEDS: LEVOFLOXACIN 750 MG/D5W RTU 750 MG/150 ML RTUPB IV SCH (17:40)
[2017-03-07 17:50] LABS: HEMATOCRIT 36.4 % (36.0-47.0); HGB HCT DIFFERENCE -0.4; MEAN CORPUSCULAR HEMOGLOBIN 28.2 pg (27.0-33.4); MEAN CORPUSCULAR HGB CONC 32.9 g/dL (32.0-36.0); MEAN CORPUSCULAR VOLUME 86 fl (80-97); RED BLOOD COUNT 4.25 10^6/uL (3.72-5.28); RED CELL DISTRIBUTION WIDTH 13.9 % (11.5-14.0); WHITE BLOOD COUNT 13.8 10^3/uL (4.0-10.5)
[2017-03-07 17:57] LABS: ALANINE AMINOTRANSFERASE 24 U/L (9-52); ALBUMIN 2.8 g/dL (3.5-5.0); ALKALINE PHOSPHATASE 123 U/L (38-126); ANION GAP 11 (5-19); ASPARTATE AMINO TRANSFERASE 23 U/L (14-36); BILIRUBIN,DIRECT 0.5 mg/dL (0.0-0.4); BILIRUBIN,TOTAL 0.6 mg/dL (0.2-1.3); BLOOD UREA NITROGEN 6 mg/dL (7-20); CALCIUM 8.4 mg/dL (8.4-10.2); CARBON DIOXIDE 27 mmol/L (22-30); CHLORIDE 92 mmol/L (98-107); CREATININE RESULT 0.77 mg/dL (0.52-1.25); GLUCOSE 108 mg/dL (75-110); POTASSIUM 3.5 mmol/L (3.6-5.0); SODIUM 130.2 mmol/L (137-145); TOTAL PROTEIN 6.3 g/dL (6.3-8.2)
[2017-03-07] MEDS ORDERED: LEVOFLOXACIN 750 MG/D5W RTU 750 MG/150 ML RTUPB IV SCH (18:00)
[2017-03-07 18:19] LABS: BAND NEUTROPHILS % (MANUAL) 2 % (3-5); BASOPHILS % (MANUAL) 0 % (0-2); EOSINOPHILS % (MANUAL) 1 % (0-6); LYMPHOCYTES % (MANUAL) 10 % (13-45); TOTAL CELLS COUNTED 100
[2017-03-07 18:20] LABS: TOXIC GRANULATION SLIGHT
--- NOTE | 2017-03-07 20:14 | RADIOLOGY REPORT (SQ) ---
EXAM DESCRIPTION: CT ABD/PELVIS WITH IV ORAL COMPLETED DATE/TIME: 03/07/2017 7:42 pm REASON FOR STUDY: f/u intraabdominal abscess COMPARISON: None. TECHNIQUE: CT scan of the abdomen and pelvis performed using helical scanning technique with dynamic intravenous contrast injection. No oral contrast. Images reviewed with lung, soft tissue, and bone windows. Reconstructed coronal and sagittal MPR images reviewed. Delayed images for evaluation of the urinary system also acquired. All images stored on PACS. All CT scanners at this facility use dose modulation, iterative reconstruction, and/or weight based d osing when appropriate to reduce radiation dose to as low as reasonably achievable (ALARA). [facility]: Dose Right [facility]: CareDose [facility]: Dose Right [facility]: Teradose 4D [facility]: OrangeScape CONTRAST TYPE AND DOSE: contrast/concentration: Isovue 370.00 mg/ml; Total Contrast Delivered: 100.0 ml; Total Saline Delivered: 35.0 ml RENAL FUNCTION: Creatinine 0.7 RADIATION DOSE: Up-to-date CT equipment and radiation dose reduction techniques were employed. CTDIv ol: 21.1 - 29.7 mGy. DLP: 2749 mGy-cm.. LIMITATIONS: None. FINDINGS: LOWER CHEST: No significant findings. No nodules or infiltrates. LIVER: Normal size. No masses. No dilated ducts. SPLEEN: Normal size. No focal lesions. PANCREAS: No masses. No significant calcifications. No adjacent inflammation or peripancreatic fluid collections. Pancreatic duct not dilated. GALLBLADDER: No identified stones by CT criteria. No inflammatory changes to suggest cholecystitis. ADRENAL GLANDS: No significant masses or asymmetry. RIGHT KIDNEY AND URETER: No solid masses. No significant calcifications. No hydronephrosis or hyd roureter. LEFT KIDNEY AND URETER: No solid masses. No significant calcifications. No hydronephrosis or hydr oureter. AORTA AND VESSELS: No aneurysm. No dissection. Renal arteries, SMA, celiac without stenosis. RETROPERITONEUM: No retroperitoneal adenopathy, hemorrhage or masses. BOWEL AND PERITONEAL CAVITY: The previously described inflammatory changes involving the sigmoid colo n an associated fluid collection shows interval progression as compared to the previous study. The i nflammatory changes appear more extensive in the fluid collection of appears interval increased in si ze. APPENDIX: Normal. PELVIS: The previously described cyst in the right pelvis and cystic left adnexal mass with a somewha t tubular morphologic appearance appears stable. ABDOMINAL WALL: No masses. Small umbilical hernia containing fat is again identified BONES: No significant or acute findings. OTHER: No other significant finding. IMPRESSION: Interval progression in the previously described inflammatory changes involving the sigm oid colon and and associated fluid collection as noted above. Other findings as noted above. TECHNICAL DOCUMENTATION: JOB ID: [id number] Quality ID # [id number]: Final reports with documentation of one or more dose reduction techniques (e.g., Au tomated exposure control, adjustment of the mA and/or kV according to patient size, use of iterative reconstruction technique) 2010 [employer]- All Rights Reserved
[2017-03-07] MEDS: METRONIDAZOLE 500 MG/NS RTU 100 ML IV SCH (21:11)
[2017-03-07] MEDS: AMLODIPINE BESYLATE 10 MG TABLET PO SCH (21:11)
[2017-03-08] MEDS: MORPHINE SULFATE 10 MG/ML INJ IV PRN ×3 (00:44→21:29)
[2017-03-08 04:37] LABS: ABSOLUTE EOSINOPHILS # (AUTO) 0.2 10^3/uL (0.0-0.6); ABSOLUTE MONOCYTES (AUTO) 1.3 10^3/uL (0.1-1.4); BASOPHILS % (AUTO) 0.3 % (0-2); EOSINOPHILS % (AUTO) 1.4 % (0-6); HEMATOCRIT 32.5 % (36.0-47.0); HGB HCT DIFFERENCE 0.5; LYMPHOCYTES % (AUTO) 8.1 % (13-45); MEAN CORPUSCULAR HEMOGLOBIN 28.4 pg (27.0-33.4); MEAN CORPUSCULAR HGB CONC 33.8 g/dL (32.0-36.0); MEAN CORPUSCULAR VOLUME 84 fl (80-97); MONOCYTES % (AUTO) 10.1 % (3-13); RED BLOOD COUNT 3.87 10^6/uL (3.72-5.28); SEGMENTED NEUTROPHILS % (AUTO) 80.1 % (42-78); WHITE BLOOD COUNT 12.5 10^3/uL (4.0-10.5)
[2017-03-08 05:06] LABS: ANION GAP 10 (5-19); BLOOD UREA NITROGEN 6 mg/dL (7-20); CARBON DIOXIDE 27 mmol/L (22-30); CHLORIDE 94 mmol/L (98-107); CREATININE RESULT 0.72 mg/dL (0.52-1.25); GLUCOSE 93 mg/dL (75-110); POTASSIUM 3.5 mmol/L (3.6-5.0); SODIUM 131.2 mmol/L (137-145)
[2017-03-08] MEDS: METRONIDAZOLE 500 MG/NS RTU 100 ML IV SCH ×3 (05:20→21:29)
[2017-03-08] MEDS: POTASSI CL 20 MEQ/50 ML RIDER 50 ML IV SCH ×2 (10:28→14:49)
[2017-03-08] MEDS: LOSARTAN POTASSIUM 50 MG TABLET PO SCH ×2 (10:28→21:29)
[2017-03-08] MEDS ORDERED: MIDAZOLAM 2 MG/2 ML INJ ONE (11:20)
[2017-03-08] MEDS ORDERED: FENTANYL CITRATE INJ/PF 100 MCG/2 ML AMPUL ONE ×2 (11:21→11:59)
--- NOTE | 2017-03-08 12:19 | PDOC PROGRESS REPORT ---
Subjective Progress Note for:: 03/08/17 Subjective:: patient not in her room as she is in Interventional Radiology for drainage of the retroperitoneal abscess Physical Exam Vital Signs: Temp Pulse Resp BP Pulse Ox 98.5 F 102 H 18 156/73 H 97 03/08/17 07:42 03/08/17 07:42 03/08/17 07:42 03/08/17 07:42 03/08/17 07:42 Intake & Output 03/07/17 03/08/17 03/09/17 06:59 06:59 06:59 Intake Total 1782 2218 Output Total 600 500 Balance 1182 1718 Weight 130.6 kg 132 kg Results Laboratory Results: 03/08/17 04:00 03/08/17 04:00 03/07/17 03/07/17 03/08/17 15:31 15:31 04:00 WBC 13.8 H 12.5 H RBC 4.25 3.87 Hgb 12.0 11.0 L Hct 36.4 32.5 L MCV 86 84 MCH 28.2 28.4 MCHC 32.9 33.8 RDW 13.9 14.0 Plt Count 242 229 Seg Neutrophils % Not Reportable 80.1 H Lymphocytes % Not Reportable 8.1 L Monocytes % Not Reportable 10.1 Eosinophils % Not Reportable 1.4 Basophils % Not Reportable 0.3 Absolute Neutrophils Not Reportable 10.0 H Absolute Lymphocytes Not Reportable 1.0 Absolute Monocytes Not Reportable 1.3 Absolute Eosinophils Not Reportable 0.2 Absolute Basophils Not Reportable 0.0 Sodium 130.2 L Potassium 3.5 L Chloride 92 L Carbon Dioxide 27 Anion Gap 11 BUN 6 L Creatinine 0.77 Est GFR ( Amer) > 60 Est GFR (Non-Af Amer) > 60 Glucose 108 Calcium 8.4 Total Bilirubin 0.6 AST 23 ALT 24 Alkaline Phosphatase 123 Total Protein 6.3 Albumin 2.8 L 03/08/17 04:00 WBC RBC Hgb Hct MCV MCH MCHC RDW Plt Count Seg Neutrophils % Lymphocytes % Monocytes % Eosinophils % Basophils % Absolute Neutrophils Absolute Lymphocytes Absolute Monocytes Absolute Eosinophils Absolute Basophils Sodium 131.2 L Potassium 3.5 L Chloride 94 L Carbon Dioxide 27 Anion Gap 10 BUN 6 L Creatinine 0.72 Est GFR ( Amer) > 60 Est GFR (Non-Af Amer) > 60 Glucose 93 Calcium 8.0 L Total Bilirubin AST ALT Alkaline Phosphatase Total Protein Albumin Impressions: Transvaginal US 03/04/17 11:23 IMPRESSION: EXTREME LIMITED TRANSVAGINAL PELVIC ULTRASOUND. OVARIES ARE NOT CONFIDENTLY IDENTIFIED. COMPLEX CYSTIC MASS LEFT ADNEXAL CORRESPONDING TO FINDING ON CT. NO DEFINITE SOFT TISSUE COMPONENT HOWEVER DIFFERENTIAL REMAINS PAROVARIAN CYST OR HYDROSALPINX. RECOMMEND GYNECOLOGIC CONSULTATION. FOLLOW- UP PELVIC MRI MAY BE USEFUL FOR COMPLETE CHARACTERIZATION. Abdomen/Pelvis CT 03/07/17 00:00 IMPRESSION: Interval progression in the previously described inflammatory changes involving the sigmoid colon and and associated fluid collection as noted above. Other findings as noted above. Assessment & Plan - Diagnosis (1) Colitis Is this a current diagnosis for this admission?: Yes - Plan Summary Plan Summary: A/ Diverticulitis of left colon with contained retroperitoneal abscess Abscess increased in size despite IV antibiotic treatment and conservative management as per CT dome on 03/07/17 WBC 12 P/ IR drainage of retroperitoneal abscess this AM Cx from abscess site pending after today's IR drainage: antibiotic coverage to be tailored according to cx Continue Levaquin/Flagyl for the time being
--- NOTE | 2017-03-08 13:35 | RADIOLOGY REPORT (SQ) ---
EXAM DESCRIPTION: CT DRAINAGE RETRO/PERITONEAL COMPLETED DATE/TIME: 03/08/2017 12:25 pm REASON FOR STUDY: intraabdominal abscess, fever COMPARISON: CT dated 03/07/2017. RADIATION DOSE: Up-to-date CT equipment and radiation dose reduction techniques were employed. CTDIv ol: 6.7 - 20.3 mGy. DLP: 1039 mGy-cm. mGy. LIMITATIONS: None. PROCEDURE: Procedure was discussed with the patient and the patient agreed to the procedure. Preliminary CT scanning to localize the entry site was performed. A site was marked in the left lowe r quadrant and time out was performed. Procedure was performed using CT fluoroscopy. Total exposure time: 15.1 s. IV sedation was administered and physician direction by the registered nurse using 2 milligrams of Ve rsed and 150 micrograms of fentanyl. Physiologic monitoring was provided before, during, and after se dation. The total sedation time was 30 minutes. Documentation face to face time, the performing proceduralist, spent monitoring the patient: 20minute s. After sterile skin prep with Betadine, local lidocaine for skin and deep tissue anesthesia, the absce ss collection in the left lower quadrant was localized. The needle was advanced into the abscess cav ity and 15 mL of purulent fluid aspirated and sent to the laboratory for testing. A guidewire was pl aced and the tract was sequentially dilated with subsequent placement of a 10 Greek all-purpose drai nage pigtail catheter. The pigtail was formed and locked and catheter was secured to the skin. The catheter was placed to closed suction. All CT scanners at this facility use dose modulation, iterative reconstruction, and/or weight based d osing when appropriate to reduce radiation dose to as low as reasonably achievable (ALARA). [facility]: Dose Right [facility]: CareDose [facility]: Dose Right [facility]: Teradose 4D [facility]: LOVE[employer]IGN FINDINGS: Placement of pigtail drainage catheter into the abscess collection in the left lower quadr ant with CT guidance with collection of purulent fluid. IMPRESSION: PLACEMENT OF PIGTAIL DRAINAGE CATHETER INTO THE ABSCESS COLLECTION IN THE LEFT LOWER CHELITA DRANT WITH CT GUIDANCE. COMMENT: Patient medication list reviewed:Yes- Quality ID# [id number]:Eligible professional attests to docu menting in the medical record they obtained, updated, or reviewed the patient's current medications.. TECHNICAL DOCUMENTATION: JOB ID: [id number] Quality ID #[id number]: Final reports for procedures using fluoroscopy that document radiation exposure kasey alis, or exposure time and number of fluorographic images (if radiation exposure indices are not avail able) Quality ID # [id number]: Final reports with documentation of one or more dose reduction techniques (e.g., Au tomated exposure control, adjustment of the mA and/or kV according to patient size, use of iterative reconstruction technique) 2010 [employer]- All Rights Reserved
[2017-03-08] MEDS: LEVOFLOXACIN 750 MG/D5W RTU 750 MG/150 ML RTUPB IV SCH (18:49)
[2017-03-08] MEDS: AMLODIPINE BESYLATE 10 MG TABLET PO SCH (21:29)
[2017-03-09 04:36] LABS: HEMATOCRIT 32.4 % (36.0-47.0); HEMOGLOBIN 11.1 g/dL (12.0-15.5); HGB HCT DIFFERENCE 0.9; MEAN CORPUSCULAR HEMOGLOBIN 28.9 pg (27.0-33.4); MEAN CORPUSCULAR HGB CONC 34.1 g/dL (32.0-36.0); MEAN CORPUSCULAR VOLUME 85 fl (80-97); RED BLOOD COUNT 3.82 10^6/uL (3.72-5.28); RED CELL DISTRIBUTION WIDTH 13.9 % (11.5-14.0); WHITE BLOOD COUNT 10.5 10^3/uL (4.0-10.5)
[2017-03-09 04:50] LABS: ANION GAP 10 (5-19); BLOOD UREA NITROGEN 6 mg/dL (7-20); CARBON DIOXIDE 29 mmol/L (22-30); CHLORIDE 97 mmol/L (98-107); CREATININE RESULT 0.65 mg/dL (0.52-1.25); GLUCOSE 91 mg/dL (75-110); POTASSIUM 3.3 mmol/L (3.6-5.0)
[2017-03-09 05:05] LABS: BAND NEUTROPHILS % (MANUAL) 2 % (3-5); EOSINOPHILS % (MANUAL) 4 % (0-6); LYMPHOCYTES % (MANUAL) 11 % (13-45)
[2017-03-09 05:06] LABS: RBC MORPHOLOGY COMMENT NORMO-CYTIC/CHROMIC
[2017-03-09 05:11] LABS: BASOPHILS % (MANUAL) 0 % (0-2)
[2017-03-09 05:19] LABS: TOTAL CELLS COUNTED 100
[2017-03-09] MEDS: METRONIDAZOLE 500 MG/NS RTU 100 ML IV SCH ×3 (05:43→22:56)
[2017-03-09] MEDS ORDERED: MAGNESIUM HYDROXIDE SUSP 30 ML UDCUP PO ONE (09:15)
[2017-03-09] MEDS: LOSARTAN POTASSIUM 50 MG TABLET PO SCH ×2 (09:16→22:56)
--- NOTE | 2017-03-09 11:02 | PDOC PROGRESS REPORT ---
Subjective Progress Note for:: 03/09/17 Subjective:: Feels much better after abscess drainage. Physical Exam Vital Signs: Temp Pulse Resp BP Pulse Ox 98.1 F 97 16 146/73 H 98 03/09/17 08:00 03/09/17 08:00 03/09/17 08:00 03/09/17 08:00 03/09/17 08:00 Intake & Output 03/08/17 03/09/17 03/10/17 06:59 06:59 06:59 Intake Total 2218 3250 Output Total 500 1475 Balance 1718 1775 Weight 132 kg 130 kg General appearance: PRESENT: no acute distress, cooperative Respiratory exam: PRESENT: clear to auscultation pinky Cardiovascular exam: PRESENT: RRR GI/Abdominal exam: PRESENT: other - Soft, nondistended, very mild lower abdominal tenderness. Results Laboratory Results: 03/09/17 03:57 03/09/17 03:57 03/09/17 03/09/17 03:57 03:57 WBC 10.5 RBC 3.82 Hgb 11.1 L Hct 32.4 L MCV 85 MCH 28.9 MCHC 34.1 RDW 13.9 Plt Count 225 Seg Neutrophils % Not Reportable Lymphocytes % Not Reportable Monocytes % Not Reportable Eosinophils % Not Reportable Basophils % Not Reportable Absolute Neutrophils Not Reportable Absolute Lymphocytes Not Reportable Absolute Monocytes Not Reportable Absolute Eosinophils Not Reportable Absolute Basophils Not Reportable Sodium 136.0 L Potassium 3.3 L Chloride 97 L Carbon Dioxide 29 Anion Gap 10 BUN 6 L Creatinine 0.65 Est GFR ( Amer) > 60 Est GFR (Non-Af Amer) > 60 Glucose 91 Calcium 8.0 L Impressions: Transvaginal US 03/04/17 11:23 IMPRESSION: EXTREME LIMITED TRANSVAGINAL PELVIC ULTRASOUND. OVARIES ARE NOT CONFIDENTLY IDENTIFIED. COMPLEX CYSTIC MASS LEFT ADNEXAL CORRESPONDING TO FINDING ON CT. NO DEFINITE SOFT TISSUE COMPONENT HOWEVER DIFFERENTIAL REMAINS PAROVARIAN CYST OR HYDROSALPINX. RECOMMEND GYNECOLOGIC CONSULTATION. FOLLOW- UP PELVIC MRI MAY BE USEFUL FOR COMPLETE CHARACTERIZATION. Abdomen/Pelvis CT 03/07/17 00:00 IMPRESSION: Interval progression in the previously described inflammatory changes involving the sigmoid colon and and associated fluid collection as noted above. Other findings as noted above. Retroperitoneal Abscess Drainage 03/08/17 00:00 IMPRESSION: PLACEMENT OF PIGTAIL DRAINAGE CATHETER INTO THE ABSCESS COLLECTION IN THE LEFT LOWER QUADRANT WITH CT GUIDANCE. Assessment & Plan - Diagnosis (1) Diverticulitis Qualifiers: Diverticulitis site: large intestine Diverticulitis complication: with abscess Is this a current diagnosis for this admission?: YesPlan: Status post drainage of pelvic abscess. Patient doing much better. Will start clear liquids today. If she continues to do well we will switch over to p.o. antibiotics tomorrow and start a regular diet tomorrow.
[2017-03-09] MEDS: LEVOFLOXACIN 750 MG/D5W RTU 750 MG/150 ML RTUPB IV SCH (15:55)
[2017-03-09] MEDS: MORPHINE SULFATE 10 MG/ML INJ IV PRN (22:56)
[2017-03-09] MEDS: AMLODIPINE BESYLATE 10 MG TABLET PO SCH (22:56)
[2017-03-10 04:39] LABS: HEMATOCRIT 31.2 % (36.0-47.0); HEMOGLOBIN 10.7 g/dL (12.0-15.5); HGB HCT DIFFERENCE 0.9; MEAN CORPUSCULAR HEMOGLOBIN 28.8 pg (27.0-33.4); MEAN CORPUSCULAR HGB CONC 34.4 g/dL (32.0-36.0); MEAN CORPUSCULAR VOLUME 84 fl (80-97); RED BLOOD COUNT 3.73 10^6/uL (3.72-5.28); RED CELL DISTRIBUTION WIDTH 13.9 % (11.5-14.0); WHITE BLOOD COUNT 7.6 10^3/uL (4.0-10.5)
[2017-03-10 04:52] LABS: ANION GAP 9 (5-19); BLOOD UREA NITROGEN 7 mg/dL (7-20); CALCIUM 8.1 mg/dL (8.4-10.2); CARBON DIOXIDE 27 mmol/L (22-30); CHLORIDE 100 mmol/L (98-107); GLUCOSE 92 mg/dL (75-110); POTASSIUM 3.6 mmol/L (3.6-5.0); SODIUM 136.1 mmol/L (137-145)
[2017-03-10 05:34] LABS: BAND NEUTROPHILS % (MANUAL) 1 % (3-5); BASOPHILS % (MANUAL) 0 % (0-2); EOSINOPHILS % (MANUAL) 2 % (0-6); LYMPHOCYTES % (MANUAL) 17 % (13-45); POLYCHROMASIA SLIGHT; SCHISTOCYTES SLIGHT; TEAR DROP CELLS SLIGHT; TOTAL CELLS COUNTED 100; TOXIC GRANULATION SLIGHT; TOXIC VACUOLATION PRESENT
[2017-03-10] MEDS: METRONIDAZOLE 500 MG/NS RTU 100 ML IV SCH ×3 (05:48→21:45)
[2017-03-10] MEDS: LOSARTAN POTASSIUM 50 MG TABLET PO SCH ×2 (10:54→21:45)
--- NOTE | 2017-03-10 13:19 | PROGRESS NOTE E ---
Progress Note NAME: ELIO COLEMAN : 1955 AGE: 61Y DATE: 03/10/2017 ROOM: 430 SUBJECTIVE: She is about 2 days post percutaneous drainage of diverticular abscess. She remains afebrile and her white count is down to 7.6. OBJECTIVE: Her abdomen is soft with just mild tenderness around the left lower quadrant drain site. PLAN: Increase her diet and put her on p.o. antibiotics in the next 24 hours. DICTATING PHYSICIAN: YOSEPH SINGH M.D. [id number] PHY#: [id number] ID: [id number] JOB#: [id number] ACCT: [id number] cc: >
[2017-03-10] MEDS: LEVOFLOXACIN 750 MG/D5W RTU 750 MG/150 ML RTUPB IV SCH (15:33)
[2017-03-10] MEDS: AMLODIPINE BESYLATE 10 MG TABLET PO SCH (21:45)
[2017-03-10] MEDS: MORPHINE SULFATE 10 MG/ML INJ IV PRN (21:45)
[2017-03-11 04:36] LABS: ABSOLUTE BASOPHILS # (AUTO) 0.1 10^3/uL (0.0-0.2); ABSOLUTE EOSINOPHILS # (AUTO) 0.3 10^3/uL (0.0-0.6); ABSOLUTE LYMPHOCYTES (AUTO) 1.8 10^3/uL (0.5-4.7); ABSOLUTE MONOCYTES (AUTO) 0.8 10^3/uL (0.1-1.4); ABSOLUTE NEUT (AUTO) 4.5 10^3/uL (1.7-8.2); BASOPHILS % (AUTO) 0.9 % (0-2); HEMATOCRIT 33.9 % (36.0-47.0); HEMOGLOBIN 11.2 g/dL (12.0-15.5); HGB HCT DIFFERENCE -0.3; LYMPHOCYTES % (AUTO) 24.1 % (13-45); MEAN CORPUSCULAR HEMOGLOBIN 28.4 pg (27.0-33.4); MEAN CORPUSCULAR HGB CONC 33.1 g/dL (32.0-36.0); MEAN CORPUSCULAR VOLUME 86 fl (80-97); MONOCYTES % (AUTO) 10.2 % (3-13); RED BLOOD COUNT 3.96 10^6/uL (3.72-5.28); RED CELL DISTRIBUTION WIDTH 14.4 % (11.5-14.0); SEGMENTED NEUTROPHILS % (AUTO) 60.8 % (42-78); WHITE BLOOD COUNT 7.3 10^3/uL (4.0-10.5)
[2017-03-11 04:46] LABS: ANION GAP 7 (5-19); BLOOD UREA NITROGEN 8 mg/dL (7-20); CARBON DIOXIDE 29 mmol/L (22-30); CHLORIDE 101 mmol/L (98-107); CREATININE RESULT 0.73 mg/dL (0.52-1.25); GLUCOSE 94 mg/dL (75-110); POTASSIUM 3.8 mmol/L (3.6-5.0); SODIUM 137.2 mmol/L (137-145)
[2017-03-11] MEDS: METRONIDAZOLE 500 MG TABLET PO SCH ×3 (05:40→21:32)
--- NOTE | 2017-03-11 09:01 | PDOC PROGRESS REPORT ---
Subjective Progress Note for:: 03/11/17 Subjective:: Pain left lower abdomen Physical Exam Vital Signs: Temp Pulse Resp BP Pulse Ox 97.6 F 89 18 136/81 H 98 03/11/17 07:23 03/11/17 07:23 03/11/17 07:23 03/11/17 07:23 03/11/17 07:23 Intake & Output 03/10/17 03/11/17 03/12/17 06:59 06:59 06:59 Intake Total 1680 2074 Output Total 2700 1630 Balance -1020 444 Weight 130 kg 129.5 kg GI/Abdominal exam: PRESENT: tenderness - left lower abdomen Results Laboratory Results: 03/11/17 04:18 03/11/17 04:18 03/11/17 03/11/17 04:18 04:18 WBC 7.3 RBC 3.96 Hgb 11.2 L Hct 33.9 L MCV 86 MCH 28.4 MCHC 33.1 RDW 14.4 H Plt Count 265 Seg Neutrophils % 60.8 Lymphocytes % 24.1 Monocytes % 10.2 Eosinophils % 4.0 Basophils % 0.9 Absolute Neutrophils 4.5 Absolute Lymphocytes 1.8 Absolute Monocytes 0.8 Absolute Eosinophils 0.3 Absolute Basophils 0.1 Sodium 137.2 Potassium 3.8 Chloride 101 Carbon Dioxide 29 Anion Gap 7 BUN 8 Creatinine 0.73 Est GFR ( Amer) > 60 Est GFR (Non-Af Amer) > 60 Glucose 94 Calcium 8.0 L Impressions: Transvaginal US 03/04/17 11:23 IMPRESSION: EXTREME LIMITED TRANSVAGINAL PELVIC ULTRASOUND. OVARIES ARE NOT CONFIDENTLY IDENTIFIED. COMPLEX CYSTIC MASS LEFT ADNEXAL CORRESPONDING TO FINDING ON CT. NO DEFINITE SOFT TISSUE COMPONENT HOWEVER DIFFERENTIAL REMAINS PAROVARIAN CYST OR HYDROSALPINX. RECOMMEND GYNECOLOGIC CONSULTATION. FOLLOW- UP PELVIC MRI MAY BE USEFUL FOR COMPLETE CHARACTERIZATION. Abdomen/Pelvis CT 03/07/17 00:00 IMPRESSION: Interval progression in the previously described inflammatory changes involving the sigmoid colon and and associated fluid collection as noted above. Other findings as noted above. Retroperitoneal Abscess Drainage 03/08/17 00:00 IMPRESSION: PLACEMENT OF PIGTAIL DRAINAGE CATHETER INTO THE ABSCESS COLLECTION IN THE LEFT LOWER QUADRANT WITH CT GUIDANCE. Assessment & Plan - Plan Summary Plan Summary: Diverticulitis with abscess s/p percutaneous drainage, lehr tender continue IV antibiotics and monitoring
[2017-03-11] MEDS: LOSARTAN POTASSIUM 50 MG TABLET PO SCH ×2 (09:37→21:32)
[2017-03-11] MEDS: LEVOFLOXACIN 750 MG TABLET PO SCH (16:14)
[2017-03-11] MEDS: AMLODIPINE BESYLATE 10 MG TABLET PO SCH (21:32)
[2017-03-12 04:53] LABS: HEMATOCRIT 34.3 % (36.0-47.0); HEMOGLOBIN 11.6 g/dL (12.0-15.5); HGB HCT DIFFERENCE 0.5; MEAN CORPUSCULAR HEMOGLOBIN 28.5 pg (27.0-33.4); MEAN CORPUSCULAR HGB CONC 33.8 g/dL (32.0-36.0); MEAN CORPUSCULAR VOLUME 84 fl (80-97); RED BLOOD COUNT 4.07 10^6/uL (3.72-5.28); RED CELL DISTRIBUTION WIDTH 13.8 % (11.5-14.0); WHITE BLOOD COUNT 6.5 10^3/uL (4.0-10.5)
[2017-03-12 04:54] LABS: ANION GAP 8 (5-19); BLOOD UREA NITROGEN 7 mg/dL (7-20); CALCIUM 8.3 mg/dL (8.4-10.2); CARBON DIOXIDE 28 mmol/L (22-30); CHLORIDE 101 mmol/L (98-107); CREATININE RESULT 0.68 mg/dL (0.52-1.25); GLUCOSE 93 mg/dL (75-110); POTASSIUM 3.7 mmol/L (3.6-5.0)
[2017-03-12 05:05] LABS: BAND NEUTROPHILS % (MANUAL) 1 % (3-5); BASOPHILS % (MANUAL) 0 % (0-2); EOSINOPHILS % (MANUAL) 3 % (0-6); LYMPHOCYTES % (MANUAL) 28 % (13-45); TOTAL CELLS COUNTED 100
[2017-03-12 05:08] LABS: PLATELET CLUMPS PRESENT; POIKILOCYTOSIS SLIGHT; POLYCHROMASIA SLIGHT; TEAR DROP CELLS SLIGHT; TOXIC GRANULATION SLIGHT; TOXIC VACUOLATION PRESENT
[2017-03-12] MEDS: METRONIDAZOLE 500 MG TABLET PO SCH ×2 (06:17→14:38)
[2017-03-12] MEDS ORDERED: ENOXAPARIN SODIUM INJ 40 MG/0.4 ML DISP.SYRIN SUBCUT SCH (08:00)
[2017-03-12] MEDS: LOSARTAN POTASSIUM 50 MG TABLET PO SCH (09:31)
[2017-03-12 11:54] VITALS: BP 163/65
--- NOTE | 2017-03-12 13:14 | DISCHARGE SUMMARY E ---
Discharge Summary NAME: ELIO COLEMAN : 1955 AGE: 61Y ADMITTED: 03/06/2017 DISCHARGED: 03/12/2017 ADMITTING DIAGNOSIS: Acute diverticulitis with a pericolonic abscess with a localized perforation. DISCHARGE DIAGNOSIS: Acute diverticulitis with a pericolonic abscess with a localized perforation, resolving abscess status post percutaneous drainage by Interventional Radiology. DISCHARGE MEDICATIONS: 1. Levofloxacin for the antibiotic. 2. Flagyl also for antibiotic. 3. Probiotic. FOLLOWUP/PLAN: Followup planned in 1 week in the surgical clinic. She is being discharged with a drain in place to be removed in the surgical clinic, because still draining some thick serous fluid. HOSPITAL COURSE: A very pleasant female patient, who presented with acute abdominal pain, turned out to be acute diverticulitis with a localized perforation with a localized abscess and for that, she was started on IV antibiotic. She also underwent a percutaneous drainage, which was successfully placed and has been draining. From that time, she is considerably improved with her pain and tenderness is much less. I have seen her yesterday and today, greatly improved, tolerating diet. Tenderness is very minimal. Afebrile. White count is normal. So, we will discharge her home. In the future, she may need a laparoscopic sigmoid colectomy based on her further course. At the time of discharge, the patient is doing very well. DICTATING PHYSICIAN: BREE RODRIGUEZ M.D. [id number] PHY#: [id number] ID: [id number] JOB#: [id number] ACCT: [id number] cc:Thuan LANE M.D. >
[2017-03-12] MEDS: LEVOFLOXACIN 750 MG TABLET PO SCH (16:15)
[2017-03-13 14:25] LABS: PATH REVIEW PATHOLOGIST REVIEWED
== END 2017-03-12 14:30 | disposition home or self-care (01) | DRG 392 ==
LOC: ER 08:07 → EH 12:46 → UNDOADMOB 13:32 → 4S 16:10 → OBSVTOIN 03-06 13:48 → 4N 03-11 16:15
PROVIDERS: ADMIT Surgery; ATTEND Surgery
PROC: 0W9G30Z Drainage of Peritoneal Cavity with Drainage Device, Percutaneous Approach (ICD-10-PCS; principal; 2017-03-08)
DX: K57.20 Diverticulitis of large intestine with perforation and abscess without bleeding (principal); Z68.43 Body mass index [BMI] 50.0-59.9, adult; I16.0 Hypertensive urgency; E86.0 Dehydration; E87.6 Hypokalemia; I10 Essential (primary) hypertension; E66.01 Morbid (severe) obesity due to excess calories
CPT/HCPCS: 36415; 49406; 74177; 76830; 80048; 80053; 80307; 81001; 82378; 83690; 85025; 85610; 85730; 86304; 86850; 86900; 86901; 87040; 87070; 87075; 87077; 87186; 87205; 93005; 93010; 93976; 94799; 96365; 96375; 99285; C1729; C1769; C1894; G0378; J0360; J1170; J1335; J1650; J1885; J1956; J2250; J2270; J3010; J3480; J3490; J7030; S0119

== ENCOUNTER → 2017-03-29 | Outpatient (CLI) | payer SELFPAY ==
--- NOTE | 2017-03-31 02:11 | RADIOLOGY REPORT (SQ) ---
EXAM DESCRIPTION: CT ABD/PELVIS NO ORAL OR IV COMPLETED DATE/TIME: 03/29/2017 1:45 pm REASON FOR STUDY: DIVERTICULITIS OF LARGE INTESTINES WITH PERFORATION K57.20 DVTRCLI OF LG INT W PE RFORATION AND ABSCESS W/O BLEED COMPARISON: CT abdomen pelvis 03/04/2017, 03/07/2017, 03/08/2017 TECHNIQUE: CT scan of the abdomen and pelvis performed without intravenous or oral contrast. Images reviewed with lung, soft tissue, and bone windows. Reconstructed coronal and sagittal MPR images revi ewed. All images stored on PACS. All CT scanners at this facility use dose modulation, iterative reconstruction, and/or weight based d osing when appropriate to reduce radiation dose to as low as reasonably achievable (ALARA). [facility]: Dose Right [facility]: CareDose [facility]: Dose Right [facility]: Teradose 4D [facility]: [employer] RADIATION DOSE: Up-to-date CT equipment and radiation dose reduction techniques were employed. CTDIv ol: 30.4 mGy. DLP: 1595 mGy-cm.mGy. LIMITATIONS: None. FINDINGS: The previously placed left lower quadrant pigtail catheter is along the lateral aspects of the distal descending colon. No residual abscess is identified. After this CT, the catheter was re moved without immediate complication. LOWER CHEST: Small hiatal hernia. No nodules or infiltrates. NON-CONTRASTED LIVER, SPLEEN, ADRENALS: Evaluation limited by lack of IV contrast. No identified sign ificant masses. PANCREAS: No masses. No peripancreatic inflammatory changes. GALLBLADDER: Nitrogen containing gallstones are present in the gallbladder. No gallbladder wall thic kening or pericholecystic fluid. RIGHT KIDNEY AND URETER: No suspicious masses. Assessment limited by lack of IV contrast. No signif icant calcifications. No hydronephrosis or hydroureter. LEFT KIDNEY AND URETER: No suspicious masses. Assessment limited by lack of IV contrast. No signifi cant calcifications. No hydronephrosis or hydroureter. AORTA AND RETROPERITONEUM: No aneurysm. No retroperitoneal masses or adenopathy. BOWEL AND PERITONEAL CAVITY: No obvious masses or inflammatory changes. No free fluid. Descending an d sigmoid colon diverticuli are present without CT signs of acute diverticulitis APPENDIX: Normal. PELVIS, BLADDER, AND ABDOMINAL WALL:Urinary bladder unremarkable. Enlarged fibroid uterus. In the l eft adnexa, a 9 x 4 cm cystic structures present which may represent a hydrosalpinx or ovarian cyst. This is similar compared to CT prior exams BONES: No significant findings. OTHER: No other significant finding. IMPRESSION: Resolved left lower quadrant diverticular abscess. Under the CT exam, the left lower qu adrant pigtail drainage catheter was removed without immediate complication. TECHNICAL DOCUMENTATION: JOB ID: [id number] Quality ID # [id number]: Final reports with documentation of one or more dose reduction techniques (e.g., Au tomated exposure control, adjustment of the mA and/or kV according to patient size, use of iterative reconstruction technique) 2010 [employer]- All Rights Reserved
== END ==
LOC: RAD 13:13
PROVIDERS: ATTEND Physician Assistant Surgical
DX: K57.20 Diverticulitis of large intestine with perforation and abscess without bleeding (principal)
CPT/HCPCS: 74176

== ENCOUNTER 2017-05-18 06:53 | Day surgery (SDC) | payer BC ==
[2017-05-18] MEDS ORDERED: NALOXONE HCL INJ/PF 0.4 MG/1 ML SDV ONE (07:09)
[2017-05-18] MEDS ORDERED: ONDANSETRON HCL INJ/PF 4 MG/2 ML SDV ONE (07:09)
[2017-05-18] MEDS ORDERED: GLYCOPYRROLATE INJ 0.4 MG/2 ML VIAL ONE (07:09)
[2017-05-18] MEDS ORDERED: GLUCAGON,HUMAN RECOMB 1 MG INJ ONE (07:10)
[2017-05-18] MEDS ORDERED: FLUMAZENIL INJ 0.5 MG/5 ML VIAL ONE (07:10)
[2017-05-18] MEDS ORDERED: EPINEPHRINE INJ 1 MG/10 ML DISP.SYRIN ONE (07:10)
[2017-05-18] MEDS: MIDAZOLAM 2 MG/2 ML INJ ONE ×3 (07:42→07:48)
[2017-05-18] MEDS: FENTANYL CITRATE INJ/PF 100 MCG/2 ML AMPUL ONE ×2 (07:44→07:50)
--- NOTE | 2017-05-18 08:15 | Operative Report ---
Operative Report DATE OF SURGERY: 05/18/17 PREOPERATIVE DIAGNOSIS: History of sigmoid colon perforation with drain placement POSTOPERATIVE DIAGNOSIS: 1. Post colitic changes of the sigmoid colon with rare diverticulum. 2. Otherwise normal colonoscopy OPERATION: Complete colonoscopy to cecum SURGEON: LOUISA GARCIA ANESTHESIA: Moderate Sedation TISSUE REMOVED OR ALTERED: None COMPLICATIONS: None ESTIMATED BLOOD LOSS: None INTRAOPERATIVE FINDINGS: See below PROCEDURE: Obtaining informed consent the patient was taken from the preoperative holding area to the main endoscopy suite where monitoring devices were attached to the patient. Plan and surgical timeout were conducted The patient was placed in the left lateral decubitus position with knees to chest. A perianal examination was performed. There was no visible or palpable anorectal pathology. Sphincter tone was felt to be normal. The flexible adult colonoscope was advanced through the anal rectal canal, all the way to the cecum. Utilization of the cecum was achieved and the ileocecal valve, the appendiceal orifice and transillumination of the anterior abdominal wall. This was an excellent study on the well-prepped bowel. The colonoscope was withdrawn slowly and methodically checked and the mucosa carefully. There was no evidence of tumor, stricture, bleeding or polyp. There were rare diverticula in the sigmoid colon; within the sigmoid colon there is moderate tortuosity but no binta stenosis, mass, or inflammatory changes. The scope was slowly withdrawn through the anal rectal canal. Complete visualization of the rectum was achieved with photodocumentation. The scope was withdrawn to the patient's anus. The patient tolerated the procedure well and was taken to the recovery area in stable condition. As patient is at average risk for colorectal carcinoma, should be an appropriate candidate for follow-up colonoscopy in 10 years, or sooner if symptoms develop
--- NOTE | 2017-05-18 08:16 | PDOC DISCHARGE SUMMARY ---
Discharge Summary (SDC) - Discharge Final Diagnosis: Status post sigmoid colon perforation with drain placement, inflammatory process resolved Date of Surgery: 05/18/17 Discharge Date: 05/18/17 Condition: Good Treatment or Instructions: [facility] [address] [address] POST ENDOSCOPY DISCHARGE INSTRUCTIONS 1. Diet: Start clear liquids that a regular diet as tolerated. 2. Resume all preoperative medications. All oral anticoagulants and aspirins can be resumed 24 hours after procedure. 3. If a polypectomy was performed some bleeding per rectum may occur. This should stop within 3 days. If not, please contact the office. 4. If you had a colonoscopy you may experience some bloating and delayed return of normal bowel function for several days, your regular bowel movement pattern should resume within a week. 5. Please contact [facility] at to make an appointment with Dr. Lam for 1 to 3 weeks following procedure. 6. If you have any questions or concerns regarding your care,treatment plan or follow up, please contact our office. 7. Per clinical guidelines we recommend you undergo a repeat colonoscopy in 10 years. Discharge Diet: As Tolerated Discharge Activity: Activity As Tolerated Home Care Assistance: None Needed Report the Following to Your Physician Immediately: Shortness of Breath, Increase in Pain, Fever over 101 Degrees
[2017-05-18 08:56] VITALS: BP 168/79
== END 2017-05-18 09:08 | disposition home or self-care (01) ==
LOC: END 06:53
PROVIDERS: ATTEND Surgery
PROC: 0DJD8ZZ Inspection of Lower Intestinal Tract, Via Natural or Artificial Opening Endoscopic (ICD-10-PCS; principal; 2017-05-18 07:30)
DX: Z12.11 Encounter for screening for malignant neoplasm of colon (principal); K57.30 Diverticulosis of large intestine without perforation or abscess without bleeding; M19.90 Unspecified osteoarthritis, unspecified site; I10 Essential (primary) hypertension; E66.9 Obesity, unspecified; Z79.1 Long term (current) use of non-steroidal anti-inflammatories (NSAID); Z68.42 Body mass index [BMI] 45.0-49.9, adult
CPT/HCPCS: 45378; J2250; J3010; J0171; J1610; J2310; J2405; J3490

== ENCOUNTER 2020-06-17 10:15 | Inpatient (IN) | payer MEDICARE ==
[2020-06-17] MEDS ORDERED: NORMAL SALINE 1000 ML 1,000 ML IV ONE ×4 (10:41→16:15)
--- NOTE | 2020-06-17 10:44 | ER Document Report ---
ED Medical Screen (RME) - General Chief Complaint: Abdominal Pain Stated Complaint: ABDOMINAL PAIN Time Seen by Provider: 06/17/20 10:37 Mode of Arrival: Ambulatory Information source: Patient Notes: 64-year-old female presents to ED complaint of left lower quadrant abdominal pain. She states she is not passing any stool she is not passing any gas and today she started getting nausea and vomiting. She states she had something similar this in 1999 and ended up having to go in and drink something but she does not know what. She does have a history of high blood pressure and arthritis does not smoke drink or use any illicit drugs I have greeted and performed a rapid initial assessment of this patient. A comprehensive ED assessment and evaluation of the patient, analysis of test results and completion of medical decision making process will be conducted by an additional ED providers. TRAVEL OUTSIDE OF THE [place] IN LAST 30 DAYS: No - Related Data Allergies/Adverse Reactions: No Known Allergies Allergy (Verified 05/18/17 07:17) Home Medications: amlodipine, aleve, probiotic Past Medical History - Social History Chew tobacco use (# tins/day): No Frequency of alcohol use: None Drug Abuse: None - Past Medical History Cardiac Medical History: Reports: Hx Hypertension Denies: Hx Coronary Artery Disease, Hx Heart Attack Pulmonary Medical History: Denies: Hx Asthma, Hx Bronchitis, Hx COPD, Hx Pneumonia Neurological Medical History: Denies: Hx Cerebrovascular Accident, Hx Seizures Renal/ Medical History: Denies: Hx Peritoneal Dialysis Musculoskeltal Medical History: Denies Hx Arthritis Past Surgical History: Denies: Hx Hysterectomy - Immunizations Hx Diphtheria, Pertussis, Tetanus Vaccination: No Physical Exam - Vital signs Vitals: Temp Pulse Resp BP Pulse Ox 97.8 F 111 H 20 185/78 H 98 06/17/20 10:24 06/17/20 10:24 06/17/20 10:24 06/17/20 10:24 06/17/20 10:24 Course - Vital Signs Vital signs: Temp Pulse Resp BP Pulse Ox 97.8 F 111 H 20 185/78 H 98 06/17/20 10:24 06/17/20 10:24 06/17/20 10:24 06/17/20 10:24 06/17/20 10:24
[2020-06-17] MEDS ORDERED: ONDANSETRON HCL INJ/PF 4 MG/2 ML SDV IV ONE (11:34)
[2020-06-17] MEDS ORDERED: MORPHINE SULFATE 10 MG/ML INJ IV ONE ×2 (11:35→16:16)
--- NOTE | 2020-06-17 11:57 | ER Document Report ---
ED General - General Chief Complaint: Abdominal Pain Stated Complaint: ABDOMINAL PAIN Time Seen by Provider: 06/17/20 10:37 Mode of Arrival: Ambulatory Information source: Patient TRAVEL OUTSIDE OF THE [place] IN LAST 30 DAYS: No - HPI Notes: Patient complains of several days of left lower quadrant abdominal pain. He got worse today so she came emergency room. It is constant. Is worse with movement and better with rest. She has been constipated and states she has had no bowel movement for approximately a week. She states the pain has been going on for approximately a week as well. Nausea with some vomiting yesterday. No fever sweats or chills. No similar history of previous pain. She denies any previous abdominal surgeries. - Related Data Allergies/Adverse Reactions: No Known Allergies Allergy (Verified 05/18/17 07:17) Home Medications: amlodipine, aleve, probiotic Past Medical History - General Information source: Patient - Social History Smoking Status: Never Smoker Chew tobacco use (# tins/day): No Frequency of alcohol use: None Drug Abuse: None Family History: Reviewed & Not Pertinent, CVA Patient has homicidal ideation: No - Past Medical History Cardiac Medical History: Reports: Hx Hypertension Denies: Hx Coronary Artery Disease, Hx Heart Attack Pulmonary Medical History: Denies: Hx Asthma, Hx Bronchitis, Hx COPD, Hx Pneumonia Neurological Medical History: Denies: Hx Cerebrovascular Accident, Hx Seizures Renal/ Medical History: Denies: Hx Peritoneal Dialysis Musculoskeletal Medical History: Denies Hx Arthritis Past Surgical History: Denies: Hx Hysterectomy - Immunizations Hx Diphtheria, Pertussis, Tetanus Vaccination: No Review of Systems - Review of Systems Constitutional: denies: Chills, Fever Cardiovascular: denies: Chest pain, Palpitations Respiratory: denies: Cough, Short of breath -: Yes All other systems reviewed and negative Physical Exam - Vital signs Vitals: Temp Pulse Resp BP Pulse Ox 97.8 F 111 H 20 185/78 H 98 06/17/20 10:24 06/17/20 10:24 06/17/20 10:24 06/17/20 10:24 06/17/20 10:24 Interpretation: Normal - General General appearance: Appears well, Alert - HEENT Head: Normocephalic, Atraumatic Eyes: Normal Pupils: PERRL - Respiratory Respiratory status: No respiratory distress Chest status: Nontender Breath sounds: Normal Chest palpation: Normal - Cardiovascular Rhythm: Tachycardia Heart sounds: Normal auscultation Murmur: No - Abdominal Inspection: Normal Distension: No distension Bowel sounds: Normal Tenderness: Tender - Left lower quadrant is tender to palpation. No rebound or guarding. Organomegaly: No organomegaly - Back Back: Normal, Nontender - Extremities General upper extremity: Normal inspection, Nontender, Normal color, Normal ROM, Normal temperature General lower extremity: Normal inspection, Nontender, Normal color, Normal ROM, Normal temperature, Normal weight bearing. No: Brit's sign - Neurological Neuro grossly intact: Yes Cognition: Normal Orientation: AAOx4 [place] Coma Scale Eye Opening: Spontaneous [place] Coma Scale Verbal: Oriented [place] Coma Scale Motor: Obeys Commands [place] Coma Scale Total: 15 Speech: Normal Motor strength normal: LUE, RUE, LLE, RLE Sensory: Normal - Psychological Associated symptoms: Normal affect, Normal mood - Skin Skin Temperature: Warm Skin Moisture: Dry Skin Color: Normal Course - Re-evaluation Re-evalutation: 06/17/20 16:07 Patient presents with left lower quadrant abdominal pain. CT scan shows diverticulitis with perforation and abscess. I called and discussed this patient with the radiologist who states that at this time is not amenable to interventional drainage. She is nontoxic-appearing. I have covered her with IV fluids pain medicine and antibiotics. I have discussed the case with the hospitalist who will admit the patient. - Vital Signs Vital signs: Temp Pulse Resp BP Pulse Ox 97.8 F 111 H 20 185/78 H 98 06/17/20 10:24 06/17/20 10:24 06/17/20 10:24 06/17/20 10:24 06/17/20 10:24 - Laboratory Result Diagrams: 06/17/20 12:15 06/17/20 12:15 Laboratory results interpreted by me: 06/17/20 06/17/20 06/17/20 12:15 12:15 13:01 WBC 13.5 H Hct 35.3 L RDW 14.2 H Lymph % (Auto) 7.2 L Absolute Neuts (auto) 11.4 H Seg Neutrophils % 84.6 H Sodium 134.8 L Chloride 97 L Alkaline Phosphatase 148 H Urine Protein 30 H Urine Urobilinogen 4.0 H - Diagnostic Test Radiology reviewed: Image reviewed, Reports reviewed Discharge - Discharge Clinical Impression: Diverticulitis of intestine with abscess Qualifiers: Diverticulitis site: large intestine Diverticulitis bleeding: without bleeding Qualified Code(s): K57.20 - Diverticulitis of large intestine with perforation and abscess without bleeding Condition: Serious Disposition: ADMITTED INPATIENT Admitting Provider: Miley (Hospitalist) Unit Admitted: Medical Floor
[2020-06-17 12:45] LABS: ABSOLUTE EOSINOPHILS # (AUTO) 0.1 10^3/uL (0.0-0.6); ABSOLUTE NEUT (AUTO) 11.4 10^3/uL (1.7-8.2); BASOPHILS % (AUTO) 0.4 % (0-2); EOSINOPHILS % (AUTO) 0.5 % (0-6); HEMATOCRIT 35.3 % (36.0-47.0); HEMOGLOBIN 12.1 g/dL (12.0-15.5); LYMPHOCYTES % (AUTO) 7.2 % (13-45); MEAN CORPUSCULAR HEMOGLOBIN 29.5 pg (27.0-33.4); MEAN CORPUSCULAR HGB CONC 34.3 g/dL (32.0-36.0); MEAN CORPUSCULAR VOLUME 86 fl (80-97); MONOCYTES % (AUTO) 7.3 % (3-13); PLATELET COUNT 267 10^3/uL (150-450); RED BLOOD COUNT 4.11 10^6/uL (3.72-5.28); RED CELL DISTRIBUTION WIDTH 14.2 % (11.5-14.0); SEGMENTED NEUTROPHILS % (AUTO) 84.6 % (42-78); TOTAL CELLS COUNTED % (AUTO) 100 %; WHITE BLOOD COUNT 13.5 10^3/uL (4.0-10.5)
[2020-06-17 13:08] LABS: ALBUMIN 3.7 g/dL (3.5-5.0); ALKALINE PHOSPHATASE 148 U/L (38-126); ANION GAP 10 (5-19); ASPARTATE AMINO TRANSFERASE 27 U/L (14-36); BILIRUBIN,DIRECT 0.4 mg/dL (0.0-0.4); BILIRUBIN,TOTAL 0.7 mg/dL (0.2-1.3); BLOOD UREA NITROGEN 8 mg/dL (7-20); CALCIUM 9.2 mg/dL (8.4-10.2); CARBON DIOXIDE 28 mmol/L (22-30); CHLORIDE 97 mmol/L (98-107); GLUCOSE 107 mg/dL (75-110); POTASSIUM 4.3 mmol/L (3.6-5.0); TOTAL PROTEIN 7.6 g/dL (6.3-8.2)
[2020-06-17 13:46] LABS: APPEARANCE,URINE CLEAR; BILIRUBIN,URINE NEGATIVE (NEGATIVE); COLOR,URINE YELLOW; GLUCOSE, URINE NEGATIVE (NEGATIVE); KETONES,URINE NEGATIVE (NEGATIVE); LEUKOCYTE ESTERASE,URINE NEGATIVE (NEGATIVE); NITRITE,URINE NEGATIVE (NEGATIVE); PROTEIN,URINE 30 mg/dL (NEGATIVE); URINE SPECIFIC GRAVITY 1.015
--- NOTE | 2020-06-17 15:46 | RADIOLOGY REPORT (SQ) ---
EXAM DESCRIPTION: CT ABD/PELVIS WITH IV ORAL IMAGES COMPLETED DATE/TIME: 06/17/2020 2:06 pm REASON FOR STUDY: Left lower abdominal pain COMPARISON: 03/29/2017. TECHNIQUE: CT scan of the abdomen and pelvis performed using helical scanning technique with dynamic intravenous contrast injection. Oral contrast. Images reviewed with lung, soft tissue, and bone win dows. Reconstructed coronal and sagittal MPR images reviewed. Delayed images for evaluation of the ur inary system also acquired. All images stored on PACS. All CT scanners at this facility use dose modulation, iterative reconstruction, and/or weight based d osing when appropriate to reduce radiation dose to as low as reasonably achievable (ALARA). [facility]: Dose Right [facility]: CareDose [facility]: Dose Right [facility]: Teradose 4D [facility]: [employer] RENAL FUNCTION: GFR > 60. RADIATION DOSE: . LIMITATIONS: None. FINDINGS: LOWER CHEST: No significant findings. No nodules or infiltrates. LIVER: Normal size. No masses. No dilated ducts. SPLEEN: Normal size. No focal lesions. PANCREAS: No masses. No significant calcifications. No adjacent inflammation or peripancreatic fluid collections. Pancreatic duct not dilated. GALLBLADDER: No identified stones by CT criteria. No inflammatory changes to suggest cholecystitis. ADRENAL GLANDS: No significant masses or asymmetry. RIGHT KIDNEY AND URETER: No solid masses. No significant calcifications. No hydronephrosis or hyd roureter. LEFT KIDNEY AND URETER: No solid masses. No significant calcifications. No hydronephrosis or hydr oureter. AORTA AND VESSELS: No aneurysm. No dissection. Renal arteries, SMA, celiac without stenosis. RETROPERITONEUM: No retroperitoneal adenopathy, hemorrhage or masses. BOWEL AND PERITONEAL CAVITY: Diverticulitis sigmoid colon. Approximately 3 cm mural abscess image 48 . APPENDIX: Not visualized. PELVIS: Moderate free fluid. No pelvic mass. ABDOMINAL WALL: No masses. No hernias. BONES: No significant or acute findings. OTHER: No other significant finding. IMPRESSION: Sigmoid diverticulitis. Small mural abscess. Currently not amenable to CT-guided drain age. TECHNICAL DOCUMENTATION: JOB ID: [id number] Quality ID # [id number]: Final reports with documentation of one or more dose reduction techniques (e.g., Au tomated exposure control, adjustment of the mA and/or kV according to patient size, use of iterative reconstruction technique) 2010 [employer]- All Rights Reserved Reading location - IP/workstation name: [email or web address]
[2020-06-17] MEDS ORDERED: PIPERACILLIN/TAZOBACTAM 3.375 GM VIAL IV ONE (15:55)
[2020-06-17] MEDS ORDERED: ONDANSETRON 4 MG TAB.RAPDIS PO PRN (18:51)
[2020-06-17] MEDS ORDERED: MORPHINE SULFATE 10 MG/ML INJ IV PRN (19:01)
--- NOTE | 2020-06-17 19:09 | PDOC H&P ---
History of Present Illness Admission Date/PCP: 06/17/20 16:35 History of Present Illness: ELIO COLEMAN is a 64 year old female with past medical history significant for morbid obesity with BMI 51.5, HTN, HLD, history of diverticular abscess status post drain who presents to the ED with a 5-day history of progressive abdominal pain/nausea/vomiting/constipation. Patient seen in the ED and was noted on CT abdomen/pelvis to have sigmoid diverticulitis with a very small abscess is not amenable to IR drainage or surgical intervention per radiology. Patient started on IV Zosyn. N.p.o. with sips of water and ice chips as needed for dry mouth. IV fluids. If patient is not improved in approximately 2 to 3 days and abscesses larger of the same on CT scan, interventional radiology will reevaluate the need for percutaneous drainage. Patient does smoke marijuana at least once per week but denies any other drug use or tobacco or alcohol. Past Medical History Cardiac Medical History: Reports: Hypertension Denies: Coronary Artery Disease, Myocardial Infarction Pulmonary Medical History: Denies: Asthma, Bronchitis, Chronic Obstructive Pulmonary Disease (COPD), Pneumonia Neurological Medical History: Denies: Seizures Musculoskeltal Medical History: Denies: Arthritis Psychiatric Medical History: Denies: Depression Hematology: Denies: Anemia Past Surgical History Past Surgical History: Reports: Other - Percutaneous drainage of diverticular abscess Denies: Hysterectomy Social History Information Source: Patient, Emergency Med Personnel Smoking Status: Never Smoker Electronic Cigarette use?: No Frequency of Alcohol Use: None Drugs: Marijuana Hx Prescription Drug Abuse: No - Advance Directive Resuscitation Status: Full Code Surrogate healthcare decision maker:: Admitting diagnosis: Acute diverticulitis with abscess All aspects of code status discussed with patient/POA including cardioversion, chest compressions, and intubation and the patient/POA indicated they wish to be full code MPOA is designated as: Ervin Carpenter Time spent: Greater than 16 minutes Family History Family History: Reviewed & Not Pertinent, CVA Parental Family History Reviewed: Yes Children Family History Reviewed: Yes Sibling(s) Family History Reviewed.: Yes Medication/Allergy Home Medications: L.acidoph,Paracasei, B.lactis [Probiotic] 1 each PO DAILY 05/17/17 Naproxen Sodium [Aleve] 220 mg PO ASDIR PRN 05/17/17 Allergies/Adverse Reactions: No Known Allergies Allergy (Verified 05/18/17 07:17) Review of Systems All systems: reviewed and no additional remarkable complaints except as stated - Per HPI otherwise negative Physical Exam Vital Signs: Temp Pulse Resp BP Pulse Ox 98.6 F 104 H 18 156/64 H 96 06/17/20 18:10 06/17/20 18:10 06/17/20 18:10 06/17/20 18:10 06/17/20 18:10 Intake & Output 06/16/20 06/17/20 06/18/20 06:59 06:59 06:59 Intake Total 1999 Balance 1999 Weight 131.8 kg Exam: General appearance: PRESENT: no acute distress, well-developed, well-nourished, morbidly obese with BMI 51.5 Head exam: PRESENT: atraumatic, normocephalic Eye exam: PRESENT: conjunctiva pink. ABSENT: scleral icterus Mouth exam: PRESENT: moist Respiratory exam: PRESENT: clear to auscultation pinky. ABSENT: rales, rhonchi, wheezes Cardiovascular exam: PRESENT: RRR. ABSENT: diastolic murmur, rubs, systolic murmur GI/Abdominal exam: PRESENT: normal bowel sounds, soft, mild to moderate tenderness primarily left lower quadrant. ABSENT: distended, guarding, mass, organolmegaly, rebound Neurological exam: PRESENT: alert, awake, oriented to person, oriented to place, oriented to time, oriented to situation Psychiatric exam: PRESENT: appropriate affect, normal mood Skin exam: PRESENT: dry, intact, warm Results Laboratory Results: 06/17/20 12:15 06/17/20 12:15 06/17/20 06/17/20 06/17/20 12:15 12:15 13:01 WBC 13.5 H RBC 4.11 Hgb 12.1 Hct 35.3 L MCV 86 MCH 29.5 MCHC 34.3 RDW 14.2 H Plt Count 267 Seg Neutrophils % 84.6 H Sodium 134.8 L Potassium 4.3 Chloride 97 L Carbon Dioxide 28 Anion Gap 10 BUN 8 Creatinine 0.75 Est GFR ( Amer) > 60 Glucose 107 Calcium 9.2 Total Bilirubin 0.7 AST 27 Alkaline Phosphatase 148 H Total Protein 7.6 Albumin 3.7 Urine Color YELLOW Urine Appearance CLEAR Urine pH 6.0 Ur Specific Flora 1.015 Urine Protein 30 H Urine Glucose (UA) NEGATIVE Urine Ketones NEGATIVE Urine Blood NEGATIVE Urine Nitrite NEGATIVE Ur Leukocyte Esterase NEGATIVE Urine WBC (Auto) 2 Urine RBC (Auto) 1 Impressions: Abdomen/Pelvis CT 06/17/20 10:41 IMPRESSION: Sigmoid diverticulitis. Small mural abscess. Currently not amenable to CT-guided drainage. Assessment and Plan - Diagnosis (1) Diverticulitis of intestine with abscess Qualifiers: Diverticulitis site: large intestine Diverticulitis bleeding: without bleeding Qualified Code(s): K57.20 - Diverticulitis of large intestine with perforation and abscess without bleeding Is this a current diagnosis for this admission?: Yes Plan: 5 days of nausea/vomiting/abdominal pain/constipation IV fluids Zosyn CT abdomen/pelvis showed sigmoid diverticulitis with abscess, too small to drain per radiology, recommended follow-up CT scan in 2 to 3 days and will reevaluate Pain medication N.p.o. except for sips of water and ice chips for dry mouth (2) Hypertension Qualifiers: Hypertension type: essential hypertension Qualified Code(s): I10 - Essential (primary) hypertension Is this a current diagnosis for this admission?: Yes Plan: Hold home medications in setting of dehydration (3) HLD (hyperlipidemia) Is this a current diagnosis for this admission?: Yes Plan: Diet controlled per patient (4) Marijuana use Is this a current diagnosis for this admission?: Yes Plan: Without dependence (5) Obesity Qualifiers: Body mass index: BMI 50.0-59.9 Is this a current diagnosis for this admission?: Yes Plan: In dire need of weight loss to avoid future comorbidities (6) Perforated sigmoid colon Is this a current diagnosis for this admission?: Yes Plan: History of this previously, required percutaneous drainage by IR per patient - Time Time Spent with patient: 35 or more minutes Medications reviewed and adjusted accordingly: Yes Anticipated Discharge Disposition: Home, Self Care Anticipated Discharge Timeframe: within 72 hours - Inpatient Certification Based on my medical assessment, after consideration of the patient's comor bidities, presenting symptoms, or acuity I expect that the services needed warrant INPATIENT care.: Yes I certify that my determination is in accordance with my understanding of Medicare's requirements for reasonable and necessary INPATIENT services [42 CFR 412.3e].: Yes Medical Necessity: Significant Comorbidiites Make Outpatient Treatment Too Risky, Need Close Monitoring Due to Risk of Patient Decompensation, Need For IV Fluids, Need for IV Antibiotics, Risk of Complication if Not Cared For in Hospital, Risk of Diagnosis Which Will Require Inpatient Eval/Care/Monitoring
[2020-06-17] MEDS: MORPHINE SULFATE 10 MG/ML INJ IV PRN ×2 (19:45→23:53)
[2020-06-17] MEDS: RINGERS SOLUTION,LACTATED 1,000 ML IV PRN (19:57)
[2020-06-17] MEDS: ENOXAPARIN SODIUM INJ 40 MG/0.4 ML DISP.SYRIN SUBCUT SCH (21:08)
[2020-06-17] MEDS: PIPERACILLIN SODIUM/TAZOBACTAM 3.375 GM in NORMAL SALINE 100 ML IV SCH (23:57)
[2020-06-18] MEDS ORDERED: PIPERACILLIN/TAZOBACTAM 3.375 GM VIAL IV SCH
[2020-06-18] MEDS: MORPHINE SULFATE 10 MG/ML INJ IV PRN ×4 (05:24→23:40)
[2020-06-18] MEDS: PIPERACILLIN SODIUM/TAZOBACTAM 3.375 GM in NORMAL SALINE 100 ML IV SCH ×4 (05:25→23:27)
[2020-06-18 06:04] LABS: MEAN CORPUSCULAR VOLUME 86 fl (80-97)
[2020-06-18 06:17] LABS: ANION GAP 7 (5-19); BLOOD UREA NITROGEN 4 mg/dL (7-20); CARBON DIOXIDE 27 mmol/L (22-30); CHLORIDE 100 mmol/L (98-107); GLUCOSE 92 mg/dL (75-110); PHOSPHORUS 2.7 mg/dL (2.5-4.5); POTASSIUM 3.9 mmol/L (3.6-5.0)
[2020-06-18 06:31] LABS: ABSOLUTE EOSINOPHILS # (AUTO) 0.1 10^3/uL (0.0-0.6); ABSOLUTE LYMPHOCYTES (AUTO) 0.9 10^3/uL (0.5-4.7); ABSOLUTE NEUT (AUTO) 9.5 10^3/uL (1.7-8.2); BASOPHILS % (AUTO) 0.3 % (0-2); EOSINOPHILS % (AUTO) 0.6 % (0-6); HEMATOCRIT 30.4 % (36.0-47.0); HEMOGLOBIN 10.6 g/dL (12.0-15.5); LYMPHOCYTES % (AUTO) 8.2 % (13-45); MEAN CORPUSCULAR HEMOGLOBIN 29.7 pg (27.0-33.4); MEAN CORPUSCULAR HGB CONC 34.8 g/dL (32.0-36.0); MONOCYTES % (AUTO) 8.6 % (3-13); PLATELET COUNT 215 10^3/uL (150-450); RED BLOOD COUNT 3.56 10^6/uL (3.72-5.28); RED CELL DISTRIBUTION WIDTH 14.2 % (11.5-14.0); SEGMENTED NEUTROPHILS % (AUTO) 82.3 % (42-78); TOTAL CELLS COUNTED % (AUTO) 100 %; WHITE BLOOD COUNT 11.6 10^3/uL (4.0-10.5)
[2020-06-18] MEDS ORDERED: INFLUENZA QUAD (6MOS+) 2020-21 VAC 0.5 ML SYR IM ONE (08:00)
[2020-06-18] MEDS ORDERED: DEXTROSE 50%-WATER 25 GM/50 ML DISP.SYRIN IV PRN ×2 (08:05)
[2020-06-18] MEDS ORDERED: DEXTROSE 40% GEL 15 GM TUBE PO PRN ×2 (08:05)
[2020-06-18] MEDS ORDERED: GLUCAGON,HUMAN RECOMB 1 MG INJ SUBCUT PRN (08:05)
[2020-06-18] MEDS: ENOXAPARIN SODIUM INJ 40 MG/0.4 ML DISP.SYRIN SUBCUT SCH (09:29)
[2020-06-18] MEDS: CAPTOPRIL 12.5 MG TABLET PO SCH (11:25)
[2020-06-18] MEDS: ACETAMINOPHEN 325 MG TABLET PO PRN (11:25)
--- NOTE | 2020-06-18 17:02 | PDOC PROGRESS REPORT ---
Subjective Subjective:: ELIO COLEMAN is a 64 year old female with past medical history significant for morbid obesity with BMI 51.5, HTN, HLD, history of diverticular abscess status post drain who presents to the ED with a 5-day history of progressive abdominal pain/nausea/vomiting/constipation. Patient seen in the ED and was noted on CT abdomen/pelvis to have sigmoid diverticulitis with a very small abscess is not amenable to IR drainage or surgical intervention per radiology. Patient started on IV Zosyn. N.p.o. with sips of water and ice chips as needed for dry mouth. IV fluids. If patient is not improved in approximately 2 to 3 days and abscesses larger of the same on CT scan, interventional radiology will reevaluate the need for percutaneous drainage. Patient does smoke marijuana at least once per week but denies any other drug use or tobacco or alcohol. 06/18/2020 Patient having a bit less pain today but states she still feels poorly most the time. She is requesting food and it appears that nursing overnight was confused about the n.p.o. order and give the patient pudding. We will keep her n.p.o. for today and tonight and start her on a clear liquid diet in the morning if she is doing well. We will also repeat the CT scan of her abdomen/pelvis tomorrow to reevaluate the colon abscess. If it is not improved or has grown, we will get interventional radiology to reevaluate it for drainage. Captopril IV sta rted for elevated blood pressure. Reason For Visit: DIVERTICULITIS OF INTESTINE WITH ABSCESS Physical Exam Vital Signs: Temp Pulse Resp BP Pulse Ox 99.7 F 93 18 152/59 H 95 06/18/20 15:27 06/18/20 15:27 06/18/20 15:27 06/18/20 15:27 06/18/20 15:27 Intake & Output 06/17/20 06/18/20 06/19/20 06:59 06:59 06:59 Intake Total 1999 Balance 1999 Weight 131.8 kg 131.8 kg Exam: General appearance: PRESENT: no acute distress, well-developed, well-nourished, morbidly obese with BMI 51.5, think she is still rather weak from surgery Head exam: PRESENT: atraumatic, normocephalic Eye exam: PRESENT: conjunctiva pink. ABSENT: scleral icterus Mouth exam: PRESENT: moist Respiratory exam: PRESENT: clear to auscultation pinky. ABSENT: rales, rhonchi, wheezes Cardiovascular exam: PRESENT: RRR. ABSENT: diastolic murmur, rubs, systolic murmur GI/Abdominal exam: PRESENT: normal bowel sounds, soft, mild to moderate tenderness primarily left lower quadrant. ABSENT: distended, guarding, mass, organolmegaly, rebound Neurological exam: PRESENT: alert, awake, oriented to person, oriented to place, oriented to time, oriented to situation Psychiatric exam: PRESENT: appropriate affect, normal mood Skin exam: PRESENT: dry, intact, warm Results Laboratory Results: 06/18/20 05:05 06/18/20 05:05 06/18/20 06/18/20 05:05 05:05 WBC 11.6 H RBC 3.56 L Hgb 10.6 L Hct 30.4 L MCV 86 MCH 29.7 MCHC 34.8 RDW 14.2 H Plt Count 215 Seg Neutrophils % 82.3 H Sodium 133.8 L Potassium 3.9 Chloride 100 Carbon Dioxide 27 Anion Gap 7 BUN 4 L Creatinine 0.79 Est GFR ( Amer) > 60 Glucose 92 Calcium 8.0 L Phosphorus 2.7 Magnesium 1.9 06/17/20 13:01 Clean Catch Midstream Urine Culture - Final Mixed Urogenital Lexie Impressions: Abdomen/Pelvis CT 06/17/20 10:41 IMPRESSION: Sigmoid diverticulitis. Small mural abscess. Currently not a menable to CT-guided drainage. Assessment and Plan - Diagnosis (1) Diverticulitis of intestine with abscess Qualifiers: Diverticulitis site: large intestine Diverticulitis bleeding: without bleeding Qualified Code(s): K57.20 - Diverticulitis of large intestine with perforation and abscess without bleeding Is this a current diagnosis for this admission?: Yes (2) Hypertension Qualifiers: Hypertension type: essential hypertension Qualified Code(s): I10 - E ssential (primary) hypertension Is this a current diagnosis for this admission?: Yes (3) HLD (hyperlipidemia) Is this a current diagnosis for this admission?: Yes (4) Marijuana use Is this a current diagnosis for this admission?: Yes (5) Obesity Qualifiers: Body mass index: BMI 50.0-59.9 Is this a current diagnosis for this admission?: Yes (6) Perforated sigmoid colon Is this a current diagnosis for this admission?: Yes - Plan Summary Summary: (1) Diverticulitis of intestine with abscess Qualifiers: Diverticulitis site: large intestine Diverticulitis bleeding: without bleeding Qualified Code(s): K57.20 - Diverticulitis of large intestine with perforation and abscess without bleeding Is this a current diagnosis for this admission?: Yes Plan: 5 days of nausea/vomiting/abdominal pain/constipation IV fluids Zosyn CT abdomen/pelvis showed sigmoid diverticulitis with abscess, too small to drain per radiology, recommended follow-up CT scan in 2 to 3 days and will reeva luate Pain medication N.p.o. except for sips of water and ice chips for dry mouth Slowly improving (2) Hypertension Qualifiers: Hypertension type: essential hypertension Qualified Code(s): I10 - Essential (primary) hypertension Is this a current diagnosis for this admission?: Yes Plan: Hold home medications in setting of dehydration (3) HLD (hyperlipidemia) Is this a current diagnosis for this admission?: Yes Plan: Diet controlled per patient (4) Marijuana use Is this a current diagnosis for this admission?: Yes Plan: Without dependence (5) Obesity Qualifiers: Body mass index: BMI 50.0-59.9 Is this a current diagnosis for this admission?: Yes Plan: In dire need of weight loss to avoid future worsening comorbidities (6) Perforated sigmoid colon Is this a current diagnosis for this admission?: Yes Plan: History of this previously, required percutaneous drainage by IR per patient - Time Time Spent with patient: 25-34 minutes Medications reviewed and adjusted accordingly: Yes Anticipated Discharge Disposition: Home, Self Care Anticipated Discharge Timeframe: within 72 hours - Inpatient Certification Based on my medical assessment, after consideration of the patient's comorbidities, presenting symptoms, or acuity I expect that the services needed warrant INPATIENT care.: Yes I certify that my determination is in accordance with my understanding of Medicare's requirements for reasonable and necessary INPATIENT services [42 CFR 412.3e].: Yes Medical Necessity: Significant Comorbidiites Make Outpatient Treatment Too Risky, Need Close Monitoring Due to Risk of Patient Decompensation, Need For IV Fluids, Need for IV Antibiotics, Risk of Complication if Not Cared For in Hospital, Risk of Diagnosis Which Will Require Inpatient Eval/Care/Monitoring
[2020-06-18] MEDS ORDERED: CAPTOPRIL 12.5 MG TABLET PO ONE (20:45)
[2020-06-18] MEDS: ONDANSETRON HCL INJ/PF 4 MG/2 ML SDV IV PRN (23:52)
[2020-06-19] MEDS: PIPERACILLIN SODIUM/TAZOBACTAM 3.375 GM in NORMAL SALINE 100 ML IV SCH ×3 (05:07→17:13)
[2020-06-19] MEDS: RINGERS SOLUTION,LACTATED 1,000 ML IV PRN (05:07)
[2020-06-19] MEDS: MORPHINE SULFATE 10 MG/ML INJ IV PRN ×4 (05:15→21:45)
[2020-06-19] MEDS: ONDANSETRON HCL INJ/PF 4 MG/2 ML SDV IV PRN (05:15)
[2020-06-19 05:16] LABS: ABSOLUTE EOSINOPHILS # (AUTO) 0.1 10^3/uL (0.0-0.6); ABSOLUTE LYMPHOCYTES (AUTO) 0.9 10^3/uL (0.5-4.7); BASOPHILS % (AUTO) 0.3 % (0-2); EOSINOPHILS % (AUTO) 0.8 % (0-6); HEMATOCRIT 30.4 % (36.0-47.0); HEMOGLOBIN 10.6 g/dL (12.0-15.5); LYMPHOCYTES % (AUTO) 7.7 % (13-45); MEAN CORPUSCULAR HEMOGLOBIN 29.6 pg (27.0-33.4); MEAN CORPUSCULAR HGB CONC 34.8 g/dL (32.0-36.0); MEAN CORPUSCULAR VOLUME 85 fl (80-97); MONOCYTES % (AUTO) 7.9 % (3-13); PLATELET COUNT 234 10^3/uL (150-450); RED BLOOD COUNT 3.58 10^6/uL (3.72-5.28); RED CELL DISTRIBUTION WIDTH 13.6 % (11.5-14.0); SEGMENTED NEUTROPHILS % (AUTO) 83.3 % (42-78); TOTAL CELLS COUNTED % (AUTO) 100 %
[2020-06-19 05:40] LABS: ANION GAP 10 (5-19); BLOOD UREA NITROGEN 3 mg/dL (7-20); CALCIUM 8.1 mg/dL (8.4-10.2); CARBON DIOXIDE 28 mmol/L (22-30); CHLORIDE 95 mmol/L (98-107); GLUCOSE 91 mg/dL (75-110); POTASSIUM 3.5 mmol/L (3.6-5.0)
--- NOTE | 2020-06-19 08:15 | CDI QUERY ---
CDI Query CDI Review: Dear Provider, Please document in progress notes and D/C summary if you agree with clinical data: ACUTE PERITONITIS? ABSCESS WITHOUT PERITONITIS? OTHER? UNABLE TO DETERMINE Clinical findings: elevated WBC nausea / vomiting / abd pain / constipation / thirst x 5 days diverticulitis with perforation and abscess ThanksVida, CDI [phone]
[2020-06-19] MEDS: ENOXAPARIN SODIUM INJ 40 MG/0.4 ML DISP.SYRIN SUBCUT SCH (10:19)
[2020-06-19] MEDS: CAPTOPRIL 12.5 MG TABLET PO SCH ×2 (10:19→21:37)
[2020-06-19] MEDS ORDERED: CLONIDINE 0.1 MG/24 HR PATCH.TDWK TD SCH (13:00)
[2020-06-19] MEDS ORDERED: CAPTOPRIL 12.5 MG TABLET PO ONE (13:00)
[2020-06-19] MEDS ORDERED: LABETALOL HCL INJ 20 MG/4 ML DISP.SYRIN IV SCH (14:00)
[2020-06-19] MEDS ORDERED: LABETALOL HCL INJ 20 MG/4 ML DISP.SYRIN IV PRN (16:34)
--- NOTE | 2020-06-19 16:35 | RADIOLOGY REPORT (SQ) ---
EXAM DESCRIPTION: CT ABD/PELVIS WITH IV ORAL IMAGES COMPLETED DATE/TIME: 06/19/2020 4:04 pm REASON FOR STUDY: colitis with abscess COMPARISON: 06/17/2020 TECHNIQUE: CT scan of the abdomen and pelvis performed using helical scanning technique with dynamic intravenous contrast injection. No oral contrast. Images reviewed with lung, soft tissue, and bone windows. Reconstructed coronal and sagittal MPR images reviewed. Delayed images for evaluation of the urinary system also acquired. All images stored on PACS. All CT scanners at this facility use dose modulation, iterative reconstruction, and/or weight based d osing when appropriate to reduce radiation dose to as low as reasonably achievable (ALARA). [facility]: Dose Right [facility]: CareDose [facility]: Dose Right [facility]: Teradose 4D [facility]: opinions.h CONTRAST TYPE AND DOSE: contrast/concentration: Isovue 350.00 mmol/ml; Total Contrast Delivered: 100 .0 ml; Total Saline Delivered: 72.0 ml RENAL FUNCTION: BUN 3, creatinine 0.07 RADIATION DOSE: CT Rad equipment meets quality standard of care and radiation dose reduction techniq ues were employed. CTDIvol: 19.2 - 21.1 mGy. DLP: 2185 mGy-cm.. LIMITATIONS: None. FINDINGS: LOWER CHEST: No significant findings. No nodules or infiltrates. LIVER: Normal size. No masses. No dilated ducts. SPLEEN: Normal size. No focal lesions. PANCREAS: No masses. No significant calcifications. No adjacent inflammation or peripancreatic fluid collections. Pancreatic duct not dilated. GALLBLADDER: Mildly distended gallbladder. No stones. ADRENAL GLANDS: No significant masses or asymmetry. RIGHT KIDNEY AND URETER: No solid masses. No significant calcifications. No hydronephrosis or hyd roureter. LEFT KIDNEY AND URETER: No solid masses. No significant calcifications. No hydronephrosis or hydr oureter. AORTA AND VESSELS: No aneurysm. No dissection. Renal arteries, SMA, celiac without stenosis. RETROPERITONEUM: No retroperitoneal adenopathy, hemorrhage or masses. BOWEL AND PERITONEAL CAVITY: Abscess cavity in the left lower quadrant has increased in size. Associ ated thickening of the descending colon sigmoid colonic wall consistent with diverticular abscess. T his measures approximately 6 x 7 cm. APPENDIX: Normal. PELVIS: Stable, possibly loculated fluid in the left aspect of the pelvis. This could represent a 2n d abscess or fluid. Hounsfield units are relatively high measured at 48. Fibroid uterus. Cystic le jorge in the right adnexa is most likely ovarian in origin. This measures 4.9 cm. It is unchanged fr om prior exam. ABDOMINAL WALL: Small umbilical hernia containing omental fat only. BONES: No significant or acute findings. OTHER: No other significant finding. IMPRESSION: Right lower quadrant abscess has increased in size. It measures approximately 6 x 7 cm. There is an accessible window for percutaneous drainage. The collection in the pelvis is unchanged and probably represents abscess as well. Hounsfield units measure 48. This could be accessed percu taneously as well. TECHNICAL DOCUMENTATION: JOB ID: [id number] Quality ID # [id number]: Final reports with documentation of one or more dose reduction techniques (e.g., Au tomated exposure control, adjustment of the mA and/or kV according to patient size, use of iterative reconstruction technique) 2010 [employer]- All Rights Reserved Reading location - IP/workstation name: [email or web address]
--- NOTE | 2020-06-19 16:44 | PDOC PROGRESS REPORT ---
Subjective Subjective:: ELIO COLEMAN is a 64 year old female with past medical history significant for morbid obesity with BMI 51.5, HTN, HLD, history of diverticular abscess status post drain who presents to the ED with a 5-day history of progressive abdominal pain/nausea/vomiting/constipation. Patient seen in the ED and was noted on CT abdomen/pelvis to have sigmoid diverticulitis with a very small abscess is not amenable to IR drainage or surgical intervention per radiology. Patient started on IV Zosyn. N.p.o. with sips of water and ice chips as needed for dry mouth. IV fluids. If patient is not improved in approximately 2 to 3 days and abscesses larger of the same on CT scan, interventional radiology will reevaluate the need for percutaneous drainage. Patient does smoke marijuana at least once per week but denies any other drug use or tobacco or alcohol. 06/18/2020 Patient having a bit less pain today but states she still feels poorly most the time. She is requesting food and it appears that nursing overnight was confused about the n.p.o. order and give the patient pudding. We will keep her n.p.o. for today and tonight and start her on a clear liquid diet in the morning if she is doing well. We will also repeat the CT scan of her abdomen/pelvis tomorrow to reevaluate the colon abscess. If it is not improved or has grown, we will get interventional radiology to reevaluate it for drainage. Captopril IV sta rted for elevated blood pressure. 06/19/2020 Patient states she is having some nausea and vomiting overnight. She does not want to advance her diet to liquid today. She has been getting oral medications with sips of water and ice chips and tolerating this fairly well. I ordered a repeat CT abdomen/pelvis with IV and oral contrast per IR recommendations. If she has a drainable abscess, we will need radiology to address this. Captopril increased, started nifedipine, started Cardura. Patient's blood pressure is still rather uncontrolled, necessitating these changes. Urine culture was mixed . Other than this, patient has no new complaints. UPDATE: Spoke with radiologist about the results of the CT scan and they agreed the patient has a significant increase in the size of her abscess and now has a second abscess in her pelvis as well. They are planning to drain this tomorrow morning and I have ordered coag studies to be done now. We will hold the Lovenox. We will also work on getting the patient's blood pressure down to an acceptable number for surgery. Reason For Visit: DIVERTICULITIS OF INTESTINE WITH ABSCESS Physical Exam Vital Signs: Temp Pulse Resp BP Pulse Ox 99.4 F 95 16 183/58 H 99 06/19/20 11:27 06/19/20 11:27 06/19/20 11:27 06/19/20 11:27 06/19/20 11:27 Intake & Output 06/18/20 06/19/20 06/20/20 06:59 06:59 06:59 Intake Total 1999 1000 Balance 1999 1000 Weight 131.8 kg 131.8 kg Exam: General appearance: PRESENT: no acute distress, well-developed, well-nourished, morbidly obese with BMI 51.5, states she is having some worsening lower abdomen pain and some nausea today Head exam: PRESENT: atraumatic, normocephalic Eye exam: PRESENT: conjunctiva pink. ABSENT: scleral icterus Mouth exam: PRESENT: moist Respiratory exam: PRESENT: clear to auscultation pinky. ABSENT: rales, rhonchi, wheezes Cardiovascular exam: PRESENT: RRR. ABSENT: diastolic murmur, rubs, systolic murmur GI/Abdominal exam: PRESENT: normal bowel sounds, soft, mild to moderate tenderness primarily left lower quadrant. ABSENT: distended, guarding, mass, organolmegaly, rebound Neurological exam: PRESENT: alert, awake, oriented to person, oriented to place, oriented to time, oriented to situation Psychiatric exam: PRESENT: appropriate affect, normal mood Skin exam: PRESENT: dry, intact, warm Results Laboratory Results: 06/19/20 04:41 06/19/20 04:41 06/19/20 06/19/20 04:41 04:41 WBC 12.0 H RBC 3.58 L Hgb 10.6 L Hct 30.4 L MCV 85 MCH 29.6 MCHC 34.8 RDW 13.6 Plt Count 234 Seg Neutrophils % 83.3 H Sodium 132.9 L Potassium 3.5 L Chloride 95 L Carbon Dioxide 28 Anion Gap 10 BUN 3 L Creatinine 0.67 Est GFR ( Amer) > 60 Glucose 91 Calcium 8.1 L 06/17/20 13:01 Clean Catch Midstream Urine Culture - Final Mixed Urogenital Lexie Assessment and Plan - Diagnosis (1) Diverticulitis of intestine with abscess Qualifiers: Diverticulitis site: large intestine Diverticulitis bleeding: without bleeding Qualified Code(s): K57.20 - Diverticulitis of large intestine with perforation and abscess without bleeding Is this a current diagnosis for this admission?: Yes (2) Hypertension Qualifiers: Hypertension type: essential hypertension Qualified Code(s): I10 - Essential (primary) hypertension Is this a current diagnosis for this admission?: Yes (3) HLD (hyperlipidemia) Is this a current diagnosis for this admission?: Yes (4) Marijuana use Is this a current diagnosis for this admission?: Yes (5) Obesity Qualifiers: Body mass index: BMI 50.0-59.9 Is this a current diagnosis for this admission?: Yes (6) Perforated sigmoid colon Is this a current diagnosis for this admission?: Yes - Plan Summary Summary: (1) Diverticulitis of intestine with abscess Qualifiers: Diverticulitis site: large intestine Diverticulitis bleeding: without bleeding Qualified Code(s): K57.20 - Diverticulitis of large intestine with perforation and abscess without bleeding Is this a current diagnosis for this admission?: Yes Plan: 5 days of nausea/vomiting/abdominal pain/constipation IV fluids Zosyn CT abdomen/pelvis showed sigmoid diverticulitis with abscess, too small to drain per radiology, recommended follow-up CT scan in 2 to 3 days and will reevaluate Repeat CT abdomen/pelvis with oral and IV contrast on 06/19 showed significant increase in size of colon abscess as well as a second pelvic abscess which is ne w IR CT-guided drainage of 2 intra-abdominal abscesses ordered for 06/20 Coags ordered Pain medication N.p.o. except for meds and sips of water and ice chips for dry mouth Slowly improving (2) Hypertension Qualifiers: Hypertension type: essential hypertension Qualified Code(s): I10 - Essential (primary) hypertension Is this a current diagnosis for this admission?: Yes Plan: Hold home medications in setting of dehydration Very poorly controlled Started captopril, Cardura, nifedipine, labetalol (3) HLD (hyperlipidemia) Is this a current diagnosis for this admission?: Yes Plan: Diet controlled per patient (4) Marijuana use Is this a current diagnosis for this admission?: Yes Plan: Without dependence (5) Obesity Qualifiers: Body mass index: BMI 50.0-59.9 Is this a current diagnosis for this admission?: Yes Plan: In dire need of weight loss to avoid future worsening comorbidities (6) Perforated sigmoid colon Is this a current diagnosis for this admission?: Yes Plan: History of this previously, required percutaneous drainage by IR per patient - Time Time Spent with patient: 35 or more minutes Medications reviewed and adjusted accordingly: Yes Anticipated Discharge Disposition: Home with Home Health Anticipated Discharge Timeframe: within 72 hours - Inpatient Certification Based on my medical assessment, after consideration of the patient's comorbidities, presenting symptoms, or acuity I expect that the services needed warrant INPATIENT care.: Yes I certify that my determination is in accordance with my understanding of Medicare's requirements for reasonable and necessary INPATIENT services [42 CFR 412.3e].: Yes Medical Necessity: Significant Comorbidiites Make Outpatient Treatment Too Risky, Need Close Monitoring Due to Risk of Patient Decompensation, Need For IV Fluids, Need for IV Antibiotics, Need for Surgery, Risk of Complication if Not Cared For in Hospital, Risk of Diagnosis Which Will Require Inpatient Eval/Care/ Monitoring
[2020-06-19] MEDS: NIFEDIPINE 30 MG TAB.ER.24 PO SCH (17:12)
[2020-06-19] MEDS: DOXAZOSIN MESYLATE 2 MG TABLET PO SCH (17:12)
[2020-06-19 18:44] LABS: INTERNATIONAL RATION (INR) 1.08; PROTHROMBIN TIME 14.2 SEC (11.4-15.4)
[2020-06-19 18:45] LABS: PARTIAL THROMBOPLASTIN TIME 37.5 SEC (23.5-35.8)
[2020-06-20] MEDS: RINGERS SOLUTION,LACTATED 1,000 ML IV PRN ×2 (00:22→22:53)
[2020-06-20] MEDS: PIPERACILLIN SODIUM/TAZOBACTAM 3.375 GM in NORMAL SALINE 100 ML IV SCH ×5 (00:23→23:22)
[2020-06-20] MEDS: MORPHINE SULFATE 10 MG/ML INJ IV PRN ×5 (01:50→22:42)
[2020-06-20] MEDS: NIFEDIPINE 30 MG TAB.ER.24 PO SCH ×2 (05:20→18:12)
[2020-06-20 06:31] LABS: ABSOLUTE EOSINOPHILS # (AUTO) 0.1 10^3/uL (0.0-0.6); ABSOLUTE LYMPHOCYTES (AUTO) 0.8 10^3/uL (0.5-4.7); ABSOLUTE MONOCYTES (AUTO) 0.8 10^3/uL (0.1-1.4); ABSOLUTE NEUT (AUTO) 8.2 10^3/uL (1.7-8.2); BASOPHILS % (AUTO) 0.5 % (0-2); EOSINOPHILS % (AUTO) 1.3 % (0-6); HEMATOCRIT 29.1 % (36.0-47.0); HEMOGLOBIN 10.3 g/dL (12.0-15.5); LYMPHOCYTES % (AUTO) 8.4 % (13-45); MEAN CORPUSCULAR HEMOGLOBIN 29.8 pg (27.0-33.4); MEAN CORPUSCULAR HGB CONC 35.4 g/dL (32.0-36.0); MEAN CORPUSCULAR VOLUME 84 fl (80-97); MONOCYTES % (AUTO) 7.9 % (3-13); PLATELET COUNT 217 10^3/uL (150-450); RED BLOOD COUNT 3.46 10^6/uL (3.72-5.28); RED CELL DISTRIBUTION WIDTH 13.9 % (11.5-14.0); SEGMENTED NEUTROPHILS % (AUTO) 81.9 % (42-78); TOTAL CELLS COUNTED % (AUTO) 100 %
[2020-06-20 06:50] LABS: ANION GAP 10 (5-19); BLOOD UREA NITROGEN 4 mg/dL (7-20); CALCIUM 8.1 mg/dL (8.4-10.2); CARBON DIOXIDE 30 mmol/L (22-30); CHLORIDE 93 mmol/L (98-107); GLUCOSE 96 mg/dL (75-110); POTASSIUM 3.2 mmol/L (3.6-5.0)
[2020-06-20] MEDS: DOXAZOSIN MESYLATE 2 MG TABLET PO SCH (09:14)
[2020-06-20] MEDS: CAPTOPRIL 12.5 MG TABLET PO SCH ×2 (09:14→21:25)
[2020-06-20] MEDS ORDERED: MIDAZOLAM 2 MG/2 ML INJ ONE (10:05)
[2020-06-20] MEDS ORDERED: FENTANYL CITRATE INJ/PF 100 MCG/2 ML AMPUL ONE (10:06)
--- NOTE | 2020-06-20 13:36 | PDOC CONSULTATION ---
Consultation Consult Date: 06/20/20 Provider Consulted: ELBA SALEEM Consult reason:: Intra-abdominal fluid collection x2 History of Present Illness Admission Date/PCP: 06/17/20 16:35 Patient complains of: Left lower quadrant abdominal pain History of Present Illness: ELIO COLEMAN is a 64 year old female, morbidly obese, with a 5-day history of left lower abdominal pain, admitted on June 17, 2020 by the medical service following CT scan abdomen pelvis which demonstrated left lower quadrant 3 cm abscess. The patient was kept n.p.o., IV fluids, and IV antibiotics. On June 17, 2020 the patient underwent a second CT scan of the abdomen pelvis demonstrating 2 fluid collections: 1 anterior by the sigmoid colon and a second posterior in the left lower quadrant. Both fluid collections where drained percutaneously by interventional radiology today June 20, 2020. The posterior fluid collection appeared to be A seroma and A drain was left in place; the second fluid collection drained moderate amount of pus and A drain was left as well. Cultures obtained from both drains. Past Medical History Cardiac Medical History: Reports: Hypertension Denies: Coronary Artery Disease, Myocardial Infarction Pulmonary Medical History: Denies: Asthma, Bronchitis, Chronic Obstructive Pulmonary Disease (COPD), Pneumonia Neurological Medical History: Denies: Seizures Musculoskeltal Medical History: Denies: Arthritis Psychiatric Medical History: Denies: Depression Hematology: Denies: Anemia Past Surgical History Past Surgical History: Reports: Other - Percutaneous drainage of diverticular abscess Denies: Hysterectomy Social History Smoking Status: Never Smoker Electronic Cigarette use?: No Frequency of Alcohol Use: None Drugs: Marijuana Hx Prescription Drug Abuse: No - Advance Directive Resuscitation Status: Full Code Family History Family History: Reviewed & Not Pertinent, CVA Parental Family History Reviewed: No Children Family History Reviewed: No Sibling(s) Family History Reviewed.: No Medication/Allergy Home Medications: No Home Medications 06/18/20 Allergies/Adverse Reactions: No Known Allergies Allergy (Verified 05/18/17 07:17) Physical Exam Vital Signs: Temp Pulse Resp BP Pulse Ox 97.9 F 97 12 132/98 H 100 06/20/20 10:00 06/20/20 12:00 06/20/20 12:00 06/20/20 12:00 06/20/20 12:00 Intake & Output 06/19/20 06/20/20 06/21/20 06:59 06:59 06:59 Intake Total 1000 1260 Balance 1000 1260 Weight 131.8 kg 129.6 kg General appearance: PRESENT: no acute distress, obese Head exam: PRESENT: atraumatic Eye exam: PRESENT: EOMI Mouth exam: PRESENT: neck supple Teeth exam: PRESENT: edentulous Respiratory exam: PRESENT: chest wall tenderness Cardiovascular exam: PRESENT: RRR GI/Abdominal exam: PRESENT: normal bowel sounds, soft, other - Presence of 2 drains one in the left lower quadrant and the second in the left gluteus, both draining serosanguineous fluid Results Laboratory Results: 06/20/20 05:53 06/20/20 05:53 06/20/20 06/20/20 05:53 05:53 WBC 10.0 RBC 3.46 L Hgb 10.3 L Hct 29.1 L MCV 84 MCH 29.8 MCHC 35.4 RDW 13.9 Plt Count 217 Seg Neutrophils % 81.9 H Sodium 132.7 L Potassium 3.2 L Chloride 93 L Carbon Dioxide 30 Anion Gap 10 BUN 4 L Creatinine 0.69 Est GFR ( Amer) > 60 Glucose 96 Calcium 8.1 L Impressions: Abdomen/Pelvis CT 06/19/20 15:30 IMPRESSION: Right lower quadrant abscess has increased in size. It measures approximately 6 x 7 cm. There is an accessible window for percutaneous drainage. The collection in the pelvis is unchanged and probably represents abscess as well. Hounsfield units measure 48. This could be accessed per cutaneously as well. Assessment & Plan - Diagnosis (1) Diverticulitis of intestine with abscess Qualifiers: Diverticulitis site: large intestine Diverticulitis bleeding: without bleeding Qualified Code(s): K57.20 - Diverticulitis of large intestine with perforation and abscess without bleeding Is this a current diagnosis for this admission?: Yes (2) Abdominal pain Qualifiers: Abdominal location: left lower quadrant Qualified Code(s): R10.32 - Left lower quadrant pain Is this a current diagnosis for this admission?: Yes (3) Diverticulitis Qualifiers: Diverticulitis site: large intestine Diverticulitis complication: with abscess Is this a current diagnosis for this admission?: Yes (4) Obesity Qualifiers: Body mass index: BMI 50.0-59.9 Is this a current diagnosis for this admission?: Yes - Plan Summary Plan Summary: Assessment: Perforated sigmoid diverticulitis 2 intra-abdominal fluid collections: 1 posterior most likely seroma; cycle number anterior in the left lower quadrant which is a purulent fluid collection Both fluid collection was drained by interventional radiology today June 20, 2020 with drains left in place Patient currently on Zosyn IV White blood cell count 13,000 on admission, 10,000 today Plan: Continue IV antibiotics until final cultures available, then change antibiotics to more appropriate once Keep n.p.o. Advance diet to clear liquids once bowel function returns Continue IV maintenance fluids According to the interventional radiologist, the left gluteal drain can be removed in 24 to 48 hours if the drainage is scant
[2020-06-20] MEDS: POTASSI CL 20 MEQ/50 ML RIDER 20 MEQ/50 ML RTUPB IV SCH ×3 (14:46→18:19)
--- NOTE | 2020-06-20 16:38 | PDOC PROGRESS REPORT ---
Subjective Subjective:: ELIO COLEMAN is a 64 year old female with past medical history significant for morbid obesity with BMI 51.5, HTN, HLD, history of diverticular abscess status post drain who presents to the ED with a 5-day history of progressive abdominal pain/nausea/vomiting/constipation. Patient seen in the ED and was noted on CT abdomen/pelvis to have sigmoid diverticulitis with a very small abscess is not amenable to IR drainage or surgical intervention per radiology. Patient started on IV Zosyn. N.p.o. with sips of water and ice chips as needed for dry mouth. IV fluids. If patient is not improved in approximately 2 to 3 days and abscesses larger of the same on CT scan, interventional radiology will reevaluate the need for percutaneous drainage. Patient does smoke marijuana at least once per week but denies any other drug use or tobacco or alcohol. 06/18/2020 Patient having a bit less pain today but states she still feels poorly most the time. She is requesting food and it appears that nursing overnight was confused about the n.p.o. order and give the patient pudding. We will keep her n.p.o. for today and tonight and start her on a clear liquid diet in the morning if she is doing well. We will also repeat the CT scan of her abdomen/pelvis tomorrow to reevaluate the colon abscess. If it is not improved or has grown, we will get interventional radiology to reevaluate it for drainage. Captopril IV sta rted for elevated blood pressure. 06/19/2020 Patient states she is having some nausea and vomiting overnight. She does not want to advance her diet to liquid today. She has been getting oral medications with sips of water and ice chips and tolerating this fairly well. I ordered a repeat CT abdomen/pelvis with IV and oral contrast per IR recommendations. If she has a drainable abscess, we will need radiology to address this. Captopril increased, started nifedipine, started Cardura. Patient's blood pressure is still rather uncontrolled, necessitating these changes. Urine culture was mixed . Other than this, patient has no new complaints. UPDATE: Spoke with radiologist about the results of the CT scan and they agreed the patient has a significant increase in the size of her abscess and now has a second abscess in her pelvis as well. They are planning to drain this tomorrow morning and I have ordered coag studies to be done now. We will hold the Lovenox. We will also work on getting the patient's blood pressure down to an acceptable number for surgery. 06/20/2020 Patient has returned from where she had 2 drains placed for the 2 abscesses in her abdomen. According to radiologist, one abscess was drained very well and the second 1 is possibly a seroma from a prior episode of abscess formation as it was very difficult to drain despite multiple attempts. They recommended general surgery consult to evaluate for potential laparotomy needs in the future. I discussed the case with Dr. Ortiz and he recommended treatment with antibiotics and continued percutaneous drainage as needed. I also suggested that the patient might benefit from a hemicolectomy if it is determined that the same portion of her bowel is responsible for these repeat attacks of abscess formation. He was in agreement and stated that this could be addressed at an outpatient general surgery appointment in a month or 2 once the patient is fully recovered. I discussed the plan with the patient and her son at bedside. General surgery agrees patient should be kept n.p.o. except for medications and sips of water for the next few days. Reason For Visit: DIVERTICULITIS OF INTESTINE WITH ABSCESS Physical Exam Vital Signs: Temp Pulse Resp BP Pulse Ox 97.9 F 97 12 132/98 H 100 06/20/20 10:00 06/20/20 12:00 06/20/20 12:00 06/20/20 12:00 06/20/20 12:00 Intake & Output 06/19/20 06/20/20 06/21/20 06:59 06:59 06:59 Intake Total 1000 1260 39 Balance 1000 1260 39 Weight 131.8 kg 129.6 kg 129.6 kg Exam: General appearance: PRESENT: no acute distress, well-developed, well-nourished, morbidly obese with BMI 51.5, states she is having some worsening lower abdomen pain and some nausea today Head exam: PRESENT: atraumatic, normocephalic Eye exam: PRESENT: conjunctiva pink. ABSENT: scleral icterus Mouth exam: PRESENT: moist Respiratory exam: PRESENT: clear to auscultation pinky. ABSENT: rales, rhonchi, wheezes Cardiovascular exam: PRESENT: RRR. ABSENT: diastolic murmur, rubs, systolic murmur GI/Abdominal exam: PRESENT: normal bowel sounds, soft, moderate tenderness, [address] with serosanguineous and purulent fluid in the bags. ABSENT: distended, guarding, mass, organolmegaly, rebound Neurological exam: PRESENT: alert, awake, oriented to person, oriented to place, oriented to time, oriented to situation Psychiatric exam: PRESENT: appropriate affect, normal mood Skin exam: PRESENT: dry, intact, warm Results Laboratory Results: 06/20/20 05:53 06/20/20 05:53 06/20/20 06/20/20 06/20/20 05:53 05:53 05:53 WBC 10.0 RBC 3.46 L Hgb 10.3 L Hct 29.1 L MCV 84 MCH 29.8 MCHC 35.4 RDW 13.9 Plt Count 217 Seg Neutrophils % 81.9 H Sodium 132.7 L Potassium 3.2 L Chloride 93 L Carbon Dioxide 30 Anion Gap 10 BUN 4 L Creatinine 0.69 Est GFR ( Amer) > 60 Glucose 96 Calcium 8.1 L Magnesium 1.9 Impressions: Abdomen/Pelvis CT 06/19/20 15:30 IMPRESSION: Right lower quadrant abscess has increased in size. It measures approximately 6 x 7 cm. There is an accessible window for percutaneous drainage. The collection in the pelvis is unchanged and probably represents abscess as well. Hounsfield units measure 48. This could be accessed percutaneously as well. Assessment and Plan - Diagnosis (1) Diverticulitis of intestine with abscess Qualifiers: Diverticulitis site: large intestine Diverticulitis bleeding: without bleeding Qualified Code(s): K57.20 - Diverticulitis of large intestine with perforation and abscess without bleeding Is this a current diagnosis for this admission?: Yes (2) Hypertension Qualifiers: Hypertension type: essential hypertension Qualified Code(s): I10 - Essential (primary) hypertension Is this a current diagnosis for this admission?: Yes (3) HLD (hyperlipidemia) Is this a current diagnosis for this admission?: Yes (4) Marijuana use Is this a current diagnosis for this admission?: Yes (5) Obesity Qualifiers: Body mass index: BMI 50.0-59.9 Is this a current diagnosis for this admission?: Yes (6) Perforated sigmoid colon Is this a current diagnosis for this admission?: Yes - Plan Summary Summary: (1) Diverticulitis of intestine with abscess Qualifiers: Diverticulitis site: large intestine Diverticulitis bleeding: without bleeding Qualified Code(s): K57.20 - Diverticulitis of large intestine with perforation and abscess without bleeding Is this a current diagnosis for this admission?: Yes Plan: 5 days of nausea/vomiting/abdominal pain/constipation IV fluids Zosyn CT abdomen/pelvis showed sigmoid diverticulitis with abscess, too small to drain per radiology, recommended follow-up CT scan in 2 to 3 days and will reevaluate Repeat CT abdomen/pelvis with oral and IV contrast on 06/19 showed significant increase in size of colon abscess as well as a second pelvic abscess which is new IR CT-guided drainage of 2 intra-abdominal abscesses on 06/20, 2 drains placed General surgery consulted: No plans for open laparotomy due to very high surgical risk due to patient's age and severe obesity combined with co morbidities; patient needs follow-up with general surgery in 1 to 2 months to plan possible hemicolectomy to prevent further abscess formation in the future Coags reviewed Pain medication N.p.o. except for meds and sips of water and ice chips for dry mouth Slowly improving (2) Hypertension Qualifiers: Hypertension type: essential hypertension Qualified Code(s): I10 - Essential (primary) hypertension Is this a current diagnosis for this admission?: Yes Plan: Hold home medications in setting of dehydration Very poorly controlled prior to admission Started captopril, Cardura, nifedipine, labetalol (3) HLD (hyperlipidemia) Is this a current diagnosis for this admission?: Yes Plan: Diet controlled per patient (4) Marijuana use Is this a current diagnosis for this admission?: Yes Plan: Without dependence (5) Obesity Qualifiers: Body mass index: BMI 50.0-59.9 Is this a current diagnosis for this admission?: Yes Plan: In dire need of weight loss to avoid future worsening comorbidities (6) Perforated sigmoid colon Is this a current diagnosis for this admission?: Yes Plan: History of this previously, required percutaneous drainage by IR per patient - Time Medications reviewed and adjusted accordingly: Yes Anticipated Discharge Disposition: Home with Home Health Anticipated Discharge Timeframe: within 72 hours - Inpatient Certification Based on my medical assessment, after consideration of the patient's comorbidities, presenting symptoms, or acuity I expect that the services needed warrant INPATIENT care.: Yes I certify that my determination is in accordance with my understanding of Medicare's requirements for reasonable and necessary INPATIENT services [42 CFR 412.3e].: Yes Medical Necessity: Significant Comorbidiites Make Outpatient Treatment Too Risk y, Need Close Monitoring Due to Risk of Patient Decompensation, Need for IV Antibiotics, Risk of Complication if Not Cared For in Hospital, Risk of Diagnosis Which Will Require Inpatient Eval/Care/Monitoring
[2020-06-21] MEDS: MORPHINE SULFATE 10 MG/ML INJ IV PRN ×4 (03:01→20:13)
[2020-06-21] MEDS: NIFEDIPINE 30 MG TAB.ER.24 PO SCH ×2 (06:19→17:05)
[2020-06-21] MEDS: PIPERACILLIN SODIUM/TAZOBACTAM 3.375 GM in NORMAL SALINE 100 ML IV SCH ×3 (06:19→17:04)
[2020-06-21] MEDS: DOXAZOSIN MESYLATE 2 MG TABLET PO SCH (10:10)
[2020-06-21] MEDS: POTASSIUM CHLORIDE 20 MEQ PACKET PO SCH ×2 (10:11→21:25)
[2020-06-21] MEDS: RAMIPRIL 5 MG CAPSULE PO SCH (10:11)
--- NOTE | 2020-06-21 10:25 | RADIOLOGY REPORT (SQ) ---
EXAM DESCRIPTION: CT GUIDED PERCUT DRAIN W/CATH IMAGES COMPLETED DATE/TIME: 06/20/2020 12:31 pm REASON FOR STUDY: Colonic abscess increase in size COMPARISON: CT of the abdomen and pelvis from 06/19/2020. FLUORO TIME: 22.5 seconds. 732 images submitted to PACS. LIMITATIONS: None. PROCEDURE: The procedure, risks, benefits, and alternatives were discussed with the patient in the p reprocedural area, and all questions were answered. Informed consent was obtained verbally and in wri ting. The patient was then brought to the CT suite, positioned supine on the CT gurney, and a time-out was performed. After that, axial images of the abdomen were obtained for targeting of the gas-containing fluid collection in the left lower quadrant. Based on review of the axial images an appropriate acc ess site was selected on the skin. The area around the selected access site was then prepped and draped with 2% chlorhexidine utilizing standard sterile technique. After that, the access site was infiltrated with 1% lidocaine and an inc ision was made perpendicular to the skin surface with a #11 blade. An 18 gauge access needle was then advanced through the skin incision and into the collection utilizing CT fluoroscopic guidance. Next the needle was exchanged over a 0.038 inch guidewire for a 10 Zimbabwean dilator, which was used to dilat e the percutaneous track. The dilator was then removed and a 10 Zimbabwean all-purpose drainage catheter was advanced over the guidewire into the collection. After that, the guidewire and inner dilator of t he catheter were removed and the catheter was formed within the collection. Proper position of cathet er was then confirmed with repeat axial images of the abdomen. After that, the catheter was locked in position, secured in place with a StayFix device and attached to a drainage bag. The patient was then brought to the CT suite, positioned prone on the CT gurney, and a time-out was p erformed. After that, axial images of the pelvis were obtained for targeting of the fluid collection in the left hemipelvis. Based on review of the axial images an appropriate access site was selected on the skin. The area around the selected access site was then prepped and draped with 2% chlorhexidine utilizing standard sterile technique. After that, the access site was infiltrated with 1% lidocaine and an inc ision was made perpendicular to the skin surface with a #11 blade. An 18 gauge access needle was then advanced through the skin incision and into the collection utilizing CT fluoroscopic guidance. Next the needle was exchanged over a 0.038 inch guidewire for an 8 Zimbabwean dilator, which was used to dilat e the percutaneous track. The dilator was then removed and an 8 Zimbabwean all-purpose drainage catheter was advanced over the guidewire into the collection. After that, the guidewire and inner dilator of t he catheter were removed and the catheter was formed within the collection. Proper position of cathet er was then confirmed with repeat axial images of the pelvis. After that, the catheter was locked in position, secured in place with a StayFix device and attached to a drainage bag. The patient tolerated the procedure well without immediate complication. At the end of the procedure the patient's condition was unchanged from the preprocedural baseline. IV conscious sedation was administered at the direction of the performing physician by a gonzalez onofre. 2 milligrams of Versed and 175 micrograms of fentanyl were administered. Physiologic monitoring was provided before, during, and after sedation. The total sedation time was 90 minutes. Documentation of [id number] time the proceduralist spent monitoring the patient: 45 minutes. IMPRESSION: 1. Successful placement of a 10 Zimbabwean all-purpose drainage catheter into the gas-conta ining fluid collection in the left lower quadrant. Purulent fluid was aspirated from the collection and submitted for analysis. 2. Successful placement of an 8 Zimbabwean all-purpose drainage catheter into the fluid collection in the left hemipelvis. Serous fluid was aspirated from the collection and submitted for analysis. If the re is no output from the drain over the next 24 to 48 hours it is recommended that the drain be remov ed and a follow-up CT be obtained to re-assess the collection. COMMENT: Patient medication list reviewed:Yes- Quality ID# 130:Eligible professional attests to docu menting in the medical record they obtained, updated, or reviewed the patient's current medications. Quality ID #76: The patient was prepped and draped using maximum sterile barrier technique including cap, mask, sterile gown, sterile gloves, a large sterile sheet, hand hygiene, and 2% Chlorhexidine fo r cutaneous antisepsis. When ultrasound is used, sterile ultrasound techniques are followed requiring sterile gel and sterile probes. Quality ID 145: Final reports for procedures using fluoroscopy that document radiation exposure kasey alis, or exposure time and number of fluorographic images (if radiation exposure indices are not avail able) Quality ID# 436: Final reports with documentation of one or more dose reduction techniques (e.g., Aut omated exposure control, adjustment of the mA and/or kV according to patient size, use of iterative r econstruction technique) TECHNICAL DOCUMENTATION: JOB ID: [id number] 2010 [employer]- All Rights Reserved Reading location - IP/workstation name: [email or web address]
[2020-06-21] MEDS: RINGERS SOLUTION,LACTATED 1,000 ML IV PRN (14:34)
--- NOTE | 2020-06-21 15:32 | PDOC PROGRESS REPORT ---
Subjective Progress Note for:: 06/21/20 Subjective:: Patient comfortable, without complaints, no flatus or bowel movements reported Reason For Visit: DIVERTICULITIS OF INTESTINE WITH ABSCESS Physical Exam Vital Signs: Temp Pulse Resp BP Pulse Ox 98.5 F 104 H 17 156/57 H 93 06/21/20 11:52 06/21/20 14:00 06/21/20 11:52 06/21/20 11:52 06/21/20 11:52 Intake & Output 06/20/20 06/21/20 06/22/20 06:59 06:59 06:59 Intake Total 1260 1089 1000 Balance 1260 1089 1000 Weight 129.6 kg 128.5 kg General appearance: PRESENT: no acute distress, obese GI/Abdominal exam: PRESENT: soft, other - Left buttock drain site = interventional urology drain in place with scant output; lower abdominal drain site = drain in place with serosanguineous fluid Results Laboratory Results: 06/20/20 05:53 06/20/20 05:53 Impressions: Percutaneous Drainage 06/19/20 00:00 IMPRESSION: 1. Successful placement of a 10 Sinhala all-purpose drainage catheter into the gas-containing fluid collection in the left lower quadrant. Purulent fluid was aspirated from the collection and submitted for analysis. 2. Successful placement of an 8 Sinhala all-purpose drainage catheter into the fluid collection in the left hemipelvis. Serous fluid was aspirated from the collection and submitted for analysis. If there is no output from the drain over the next 24 to 48 hours it is recommended that the drain be removed and a follow-up CT be obtained to re-assess the collection. Abdomen/Pelvis CT 06/19/20 15:30 IMPRESSION: Right lower quadrant abscess has increased in size. It measures approximately 6 x 7 cm. There is an accessible window for percutaneous drainage. The collection in the pelvis is unchanged and probably represents abscess as well. Hounsfield units measure 48. This could be accessed percutaneously as well. Assessment & Plan - Diagnosis (1) Diverticulitis of intestine with abscess Qualifiers: Diverticulitis site: large intestine Diverticulitis bleeding: without bleeding Qualified Code(s): K57.20 - Diverticulitis of large intestine with perforation and abscess without bleeding Is this a current diagnosis for this admission?: Yes (2) Abdominal pain Qualifiers: Abdominal location: left lower quadrant Qualified Code(s): R10.32 - Left lower quadrant pain Is this a current diagnosis for this admission?: Yes (3) Diverticulitis Qualifiers: Diverticulitis site: large intestine Diverticulitis complication: with abscess Is this a current diagnosis for this admission?: Yes (4) Obesity Qualifiers: Body mass index: BMI 50.0-59.9 Is this a current diagnosis for this admission?: Yes - Time Anticipated Discharge Disposition: Home with Home Health Anticipated Discharge Timeframe: When bowel function returns - Plan Summary Plan Summary: Assessment: Perforated sigmoid diverticulitis Postop day #1 following intervention radiology drainage of 2 lower abdominal fluid collections: 1 filled with serous fluid accessed via left buttock; the other low in the pelvis filled with pus and accessed to the anterior abdominal wall No output from the serous filled fluid collection drain, cultures negative so far Scant output from the low pelvic intraperitoneal abscess, preliminary culture significant for gram-negative rods Patient on IV antibiotics Zosyn Physical exam unremarkable, abdomen soft No flatus or bowel function reported Plan: Remove drain placed through the left buttock as recommended by the inter ventional radiologist as no output has been recorded for the past 24 hours Waiting for culture from the lower pelvic intra-abdominal abscess so to change to the most appropriate antibiotic Continue IV fluids, n.p.o., and bowel rest until bowel function returns
--- NOTE | 2020-06-21 17:51 | PDOC PROGRESS REPORT ---
Subjective Subjective:: ELIO COLEMAN is a 64 year old female with past medical history significant for morbid obesity with BMI 51.5, HTN, HLD, history of diverticular abscess status post drain who presents to the ED with a 5-day history of progressive abdominal pain/nausea/vomiting/constipation. Patient seen in the ED and was noted on CT abdomen/pelvis to have sigmoid diverticulitis with a very small abscess is not amenable to IR drainage or surgical intervention per radiology. Patient started on IV Zosyn. N.p.o. with sips of water and ice chips as needed for dry mouth. IV fluids. If patient is not improved in approximately 2 to 3 days and abscesses larger of the same on CT scan, interventional radiology will reevaluate the need for percutaneous drainage. Patient does smoke marijuana at least once per week but denies any other drug use or tobacco or alcohol. 06/18/2020 Patient having a bit less pain today but states she still feels poorly most the time. She is requesting food and it appears that nursing overnight was confused about the n.p.o. order and give the patient pudding. We will keep her n.p.o. for today and tonight and start her on a clear liquid diet in the morning if she is doing well. We will also repeat the CT scan of her abdomen/pelvis tomorrow to reevaluate the colon abscess. If it is not improved or has grown, we will get interventional radiology to reevaluate it for drainage. Captopril IV sta rted for elevated blood pressure. 06/19/2020 Patient states she is having some nausea and vomiting overnight. She does not want to advance her diet to liquid today. She has been getting oral medications with sips of water and ice chips and tolerating this fairly well. I ordered a repeat CT abdomen/pelvis with IV and oral contrast per IR recommendations. If she has a drainable abscess, we will need radiology to address this. Captopril increased, started nifedipine, started Cardura. Patient's blood pressure is still rather uncontrolled, necessitating these changes. Urine culture was mixed . Other than this, patient has no new complaints. UPDATE: Spoke with radiologist about the results of the CT scan and they agreed the patient has a significant increase in the size of her abscess and now has a second abscess in her pelvis as well. They are planning to drain this tomorrow morning and I have ordered coag studies to be done now. We will hold the Lovenox. We will also work on getting the patient's blood pressure down to an acceptable number for surgery. 06/20/2020 Patient has returned from where she had 2 drains placed for the 2 abscesses in her abdomen. According to radiologist, one abscess was drained very well and the second 1 is possibly a seroma from a prior episode of abscess formation as it was very difficult to drain despite multiple attempts. They recommended general surgery consult to evaluate for potential laparotomy needs in the future. I discussed the case with Dr. Ortiz and he recommended treatment with antibiotics and continued percutaneous drainage as needed. I also suggested that the patient might benefit from a hemicolectomy if it is determined that the same portion of her bowel is responsible for these repeat attacks of abscess formation. He was in agreement and stated that this could be addressed at an outpatient general surgery appointment in a month or 2 once the patient is fully recovered. I discussed the plan with the patient and her son at bedside. General surgery agrees patient should be kept n.p.o. except for medications and sips of water for the next few days. 06/21/2020 Patient's drains are still having some moderate output. Patient states she feels a bit better overall but still feels poorly in general. Potassium is low and we are repleting this currently. I have transitioned her captopril to ramipril for affordability when she is discharged in the future. Antibiotics continue. Patient has no new complaints. She has very difficult IV access and I have ordered a PICC line for tomorrow. Reason For Visit: DIVERTICULITIS OF INTESTINE WITH ABSCESS Physical Exam Vital Signs: Temp Pulse Resp BP Pulse Ox 98.2 F 100 17 169/63 H 93 06/21/20 15:58 06/21/20 15:58 06/21/20 15:58 06/21/20 15:58 06/21/20 15:58 Intake & Output 06/20/20 06/21/20 06/22/20 06:59 06:59 06:59 Intake Total 1260 1089 1000 Balance 1260 1089 1000 Weight 129.6 kg 128.5 kg Exam: General appearance: PRESENT: no acute distress, well-developed, well-nourished, morbidly obese with BMI 51.5, states she is feels somewhat better today Head exam: PRESENT: atraumatic, normocephalic Eye exam: PRESENT: conjunctiva pink. ABSENT: scleral icterus Mouth exam: PRESENT: moist Respiratory exam: PRESENT: clear to auscultation pinky. ABSENT: rales, rhonchi, wheezes Cardiovascular exam: PRESENT: RRR. ABSENT: diastolic murmur, rubs, systolic murmur GI/Abdominal exam: PRESENT: normal bowel sounds, soft, moderate tenderness, [address] with persistent serosanguineous and purulent fluid in the bags. ABSENT: distended, guarding, mass, organolmegaly, rebound Neurological exam: PRESENT: alert, awake, oriented to person, oriented to place, oriented to time, oriented to situation Psychiatric exam: PRESENT: appropriate affect, normal mood Skin exam: PRESENT: dry, intact, warm Results Laboratory Results: 06/20/20 05:53 06/20/20 05:53 Impressions: Percutaneous Drainage 06/19/20 00:00 IMPRESSION: 1. Successful placement of a 10 Icelandic all-purpose drainage catheter into the gas-containing fluid collection in the left lower quadrant. Purulent fluid was aspirated from the collection and submitted for analysis. 2. Successful placement of an 8 Icelandic all-purpose drainage catheter into the fluid collection in the left hemipelvis. Serous fluid was aspirated from the collection and submitted for analysis. If there is no output from the drain over the next 24 to 48 hours it is recommended that the drain be removed and a follow-up CT be obtained to re-assess the collection. Abdomen/Pelvis CT 06/19/20 15:30 IMPRESSION: Right lower quadrant abscess has increased in size. It measures approximately 6 x 7 cm. There is an accessible window for percutaneous drainage. The collection in the pelvis is unchanged and probably represents abscess as well. Hounsfield units measure 48. This could be accessed percutaneously as well. Assessment and Plan - Diagnosis (1) Diverticulitis of intestine with abscess Qualifiers: Diverticulitis site: large intestine Diverticulitis bleeding: without bleeding Qualified Code(s): K57.20 - Diverticulitis of large intestine with perforation and abscess without bleeding Is this a current diagnosis for this admission?: Yes (2) Hypertension Qualifiers: Hypertension type: essential hypertension Qualified Code(s): I10 - Essential (primary) hypertension Is this a current diagnosis for this admission?: Yes (3) HLD (hyperlipidemia) Is this a current diagnosis for this admission?: Yes (4) Marijuana use Is this a current diagnosis for this admission?: Yes (5) Obesity Qualifiers: Body mass index: BMI 50.0-59.9 Is this a current diagnosis for this admission?: Yes (6) Perforated sigmoid colon Is this a current diagnosis for this admission?: Yes - Plan Summary Summary: (1) Diverticulitis of intestine with abscess Qualifiers: Diverticulitis site: large intestine Diverticulitis bleeding: without bleeding Qualified Code(s): K57.20 - Diverticulitis of large intestine with perforation and abscess without bleeding Is this a current diagnosis for this admission?: Yes Plan: 5 days of nausea/vomiting/abdominal pain/constipation IV fluids Zosyn CT abdomen/pelvis showed sigmoid diverticulitis with abscess, too small to drain per radiology, recommended follow-up CT scan in 2 to 3 days and will reevaluate Repeat CT abdomen/pelvis with oral and IV contrast on 06/19 showed significant increase in size of colon abscess as well as a second pelvic abscess which is new IR CT-guided drainage of 2 intra-abdominal abscesses on 06/20, 2 drains placed General surgery consulted: No plans for open laparotomy due to very high surgical risk due to patient's age and severe obesity combined with comorbidities; patient needs follow-up with general surgery in 1 to 2 months to plan possible hemicolectomy to prevent further abscess formation in the future Coags reviewed Pain medication N.p.o. except for meds and sips of water and ice chips for dry mouth Slowly improving Order for PICC line on 06/22 (2) Hypertension Qualifiers: Hypertension type: essential hypertension Qualified Code(s): I10 - Essential (primary) hypertension Is this a current diagnosis for this admission?: Yes Plan: Hold home medications in setting of dehydration Very poorly controlled prior to admission Started ramipril, Cardura, nifedipine, labetalol (3) HLD (hyperlipidemia) Is this a current diagnosis for this admission?: Yes Plan: Diet controlled per patient (4) Marijuana use Is this a current diagnosis for this admission?: Yes Plan: Without dependence (5) Obesity Qualifiers: Body mass index: BMI 50.0-59.9 Is this a current diagnosis for this admission?: Yes Plan: In dire need of weight loss to avoid future worsening comorbidities (6) Perforated sigmoid colon Is this a current diagnosis for this admission?: Yes Plan: History of this previously, required percutaneous drainage by IR per patient - Time Time Spent with patient: 25-34 minutes Medications reviewed and adjusted accordingly: Yes Anticipated Discharge Disposition: Home with Home Health Anticipated Discharge Timeframe: within 72 hours - Inpatient Certification Based on my medical assessment, after consideration of the patient's comorbidities, presenting symptoms, or acuity I expect that the services needed warrant INPATIENT care.: Yes I certify that my determination is in accordance with my understanding of Medicare's requirements for reasonable and necessary INPATIENT services [42 CFR 412.3e].: Yes Medical Necessity: Significant Comorbidiites Make Outpatient Treatment Too Risky, Need Close Monitoring Due to Risk of Patient Decompensation, Need for IV Antibiotics, Need for Surgery, Risk of Complication if Not Cared For in Hospital, Risk of Diagnosis Which Will Require Inpatient Eval/Care/Monitoring
[2020-06-22] MEDS: PIPERACILLIN SODIUM/TAZOBACTAM 3.375 GM in NORMAL SALINE 100 ML IV SCH ×4 (00:33→17:30)
[2020-06-22] MEDS: MORPHINE SULFATE 10 MG/ML INJ IV PRN (00:52)
[2020-06-22] MEDS: NIFEDIPINE 30 MG TAB.ER.24 PO SCH ×2 (05:52→17:29)
[2020-06-22 07:02] LABS: HEMOGLOBIN 11.2 g/dL (12.0-15.5); MEAN CORPUSCULAR HEMOGLOBIN 28.7 pg (27.0-33.4); MEAN CORPUSCULAR VOLUME 85 fl (80-97); PLATELET COUNT 261 10^3/uL (150-450); RED BLOOD COUNT 3.91 10^6/uL (3.72-5.28); RED CELL DISTRIBUTION WIDTH 13.6 % (11.5-14.0); WHITE BLOOD COUNT 7.2 10^3/uL (4.0-10.5)
[2020-06-22 07:31] LABS: ANION GAP 8 (5-19); BLOOD UREA NITROGEN 3 mg/dL (7-20); CALCIUM 8.3 mg/dL (8.4-10.2); CARBON DIOXIDE 31 mmol/L (22-30); CHLORIDE 94 mmol/L (98-107); GLUCOSE 96 mg/dL (75-110); POTASSIUM 3.5 mmol/L (3.6-5.0)
[2020-06-22 07:47] LABS: ABSOLUTE LYMPHOCYTES# (MANUAL) 1.1 10^3/uL (0.5-4.7); ABSOLUTE MONOCYTES # (MANUAL) 0.6 10^3/uL (0.1-1.4); BASOPHILS % (MANUAL) 0 % (0-2); EOSINOPHILS % (MANUAL) 2 % (0-6); LYMPHOCYTES % (MANUAL) 15 % (13-45); MONOCYTES % (MANUAL) 8 % (3-13); SEGMENTED NEUTROPHILS % (MAN) 75 % (42-78); TOTAL CELLS COUNTED 100
[2020-06-22 07:48] LABS: PLATELET COMMENT ADEQUATE; RBC MORPHOLOGY COMMENT NORMO-CYTIC/CHROMIC
[2020-06-22] MEDS: RAMIPRIL 5 MG CAPSULE PO SCH (10:14)
[2020-06-22] MEDS: DOXAZOSIN MESYLATE 2 MG TABLET PO SCH (10:14)
[2020-06-22] MEDS: POTASSIUM CHLORIDE 20 MEQ PACKET PO SCH ×2 (10:14→21:48)
--- NOTE | 2020-06-22 15:02 | RADIOLOGY REPORT (SQ) ---
EXAM DESCRIPTION: PICC INSERTION IMAGES COMPLETED DATE/TIME: 06/22/2020 2:02 pm REASON FOR STUDY: difficult iv access, iv abx COMPARISON: None. FLUOROSCOPY TIME: 24 seconds of fluoroscopy was used. 1 images saved to PACS. TECHNIQUE: Fluoroscopic and ultrasound guided PICC placement. LIMITATIONS: None. PROCEDURE: After written consent and assessment were obtained, the patient was brought into the fluo roscopy room and placed supine on the table. Ultrasound evaluation of potential access sites were per formed. After successfully identifying a patent left basilic vein, the left arm was prepped and drape d in a sterile fashion along with the ultrasound probe. The entry site was anesthetized with 1% lidoc pa. A 21 gauge 7 cm needle was advanced through the skin and into the basilic vein under live ultra sound guidance. An ultrasound image was saved to PACS confirming access site. A .018 guide wire was then inserted through the needle and into the venous system. The needle was then removed and an 11 b lade scalpel was used to make a 1cm skin incision. A 5 fr peel-away sheath was advanced over the wir e and into the venous system. A measurement was then made using the existing wire and live fluoroscop ic guidance. The wire was then removed and trimmed. The PICC was advanced through the peel-away sheat h and into the venous system. The peel-away sheath was removed and the catheter was adhered to the pa tients arm with a stat lock. The catheter was then aspirated and flushed and a sterile bandage was pl aced over the access site. A fluoroscopic spot image was saved to PACS confirming the catheter tip w ithin the superior vena cava. IMPRESSION: SUCCESSFUL PLACEMENT OF A 5 FR DUAL LUMEN 44 CM PICC IN THE LEFT BASILIC VEIN. COMMENT: Patient medication list reviewed: Yes- Quality ID# 130:Eligible professional attests to doc umenting in the medical record they obtained, updated, or reviewed the patient's current medications. . Quality ID 145: Final reports for procedures using fluoroscopy that document radiation exposure kasey alis, or exposure time and number of fluorographic images (if radiation exposure indices are not avail able) Quality ID #76: The patient was prepped and draped using maximum sterile barrier technique including cap, mask, sterile gown, sterile gloves, a large sterile sheet, hand hygiene, and 2% Chlorhexidine fo r cutaneous antisepsis. When ultrasound is used, sterile ultrasound techniques are followed requiring sterile gel and sterile probes. TECHNICAL DOCUMENTATION: JOB ID: [id number] 2010 [employer]- All Rights Reserved rev-12/29 Reading location - IP/workstation name: [email or web address]
--- NOTE | 2020-06-22 15:44 | PDOC PROGRESS REPORT ---
Subjective Date:: 06/22/20 Reason For Visit: DIVERTICULITIS OF INTESTINE WITH ABSCESS Patient states she feels better, would like some p.o. intake Physical Exam Vital Signs: Temp Pulse Resp BP Pulse Ox 98.0 F 110 H 17 152/70 H 97 06/22/20 12:00 06/22/20 12:00 06/22/20 12:00 06/22/20 12:00 06/22/20 12:00 Intake & Output 06/21/20 06/22/20 06/23/20 06:59 06:59 06:59 Intake Total 1089 1000 Balance 1089 1000 Weight 128.5 kg 128.5 kg General appearance: PRESENT: no acute distress GI/Abdominal exam: PRESENT: other - Abdomen soft, no peritoneal signs no rigidity. Drain with serous sanguinous material Results Laboratory Results: 06/22/20 06:21 06/22/20 06:21 06/22/20 06/22/20 06:21 06:21 WBC 7.2 RBC 3.91 Hgb 11.2 L Hct 33.0 L MCV 85 MCH 28.7 MCHC 34.0 RDW 13.6 Plt Count 261 Seg Neutrophils % Not Reportable Sodium 132.7 L Potassium 3.5 L Chloride 94 L Carbon Dioxide 31 H Anion Gap 8 BUN 3 L Creatinine 0.55 Est GFR ( Amer) > 60 Glucose 96 Calcium 8.3 L Impressions: Percutaneous Drainage 06/19/20 00:00 IMPRESSION: 1. Successful placement of a 10 Iranian all-purpose drainage catheter into the gas-containing fluid collection in the left lower quadrant. Purulent fluid was aspirated from the collection and submitted for analysis. 2. Successful placement of an 8 Iranian all-purpose drainage catheter into the fluid collection in the left hemipelvis. Serous fluid was aspirated from the collection and submitted for analysis. If there is no output from the drain over the next 24 to 48 hours it is recommended that the drain be removed and a follow-up CT be obtained to re-assess the collection. Abdomen/Pelvis CT 06/19/20 15:30 IMPRESSION: Right lower quadrant abscess has increased in size. It measures approximately 6 x 7 cm. There is an accessible window for percutaneous drainage. The collection in the pelvis is unchanged and probably represents abscess as well. Hounsfield units measure 48. This could be accessed percutaneously as well. PICC Line Insertion 06/22/20 00:00 IMPRESSION: SUCCESSFUL PLACEMENT OF A 5 FR DUAL LUMEN 44 CM PICC IN THE LEFT BASILIC VEIN. Assessment & Plan - Diagnosis (1) Diverticulitis of intestine with abscess Qualifiers: Diverticulitis site: large intestine Diverticulitis bleeding: without bleeding Qualified Code(s): K57.20 - Diverticulitis of large intestine with perforation and abscess without bleeding Is this a current diagnosis for this admission?: Yes Plan: Impression: Patient is now 2 days status post percutaneous interventional radiology drainage of pelvic abscess with medical improvement; no fever, leukocytosis resolved; growing gram-negative rods sensitive to Zosyn Plan: 1. Discontinue narcotics 2. Start clear liquids 3. We will follow with you for another 24 hours; anticipate discharge home on p.o. antibiotics in the next 24 to 48 hours; discussed with hospitalist service - Time Anticipated Discharge Disposition: Home, Self Care Anticipated Discharge Timeframe: within 48 hours Time Spent: 30 to 50 Minutes Critical Time spent with patient: Less than 15 minutes Smoking Cessation Education: 3 to 10 minutes Medications reviewed and adjusted accordingly: Yes
--- NOTE | 2020-06-22 16:57 | PDOC PROGRESS REPORT ---
Subjective Subjective:: ELIO COLEMAN is a 64 year old female with past medical history significant for morbid obesity with BMI 51.5, HTN, HLD, history of diverticular abscess status post drain who presents to the ED with a 5-day history of progressive abdominal pain/nausea/vomiting/constipation. Patient seen in the ED and was noted on CT abdomen/pelvis to have sigmoid diverticulitis with a very small abscess is not amenable to IR drainage or surgical intervention per radiology. Patient started on IV Zosyn. N.p.o. with sips of water and ice chips as needed for dry mouth. IV fluids. If patient is not improved in approximately 2 to 3 days and abscesses larger of the same on CT scan, interventional radiology will reevaluate the need for percutaneous drainage. Patient does smoke marijuana at least once per week but denies any other drug use or tobacco or alcohol. 06/18/2020 Patient having a bit less pain today but states she still feels poorly most the time. She is requesting food and it appears that nursing overnight was confused about the n.p.o. order and give the patient pudding. We will keep her n.p.o. for today and tonight and start her on a clear liquid diet in the morning if she is doing well. We will also repeat the CT scan of her abdomen/pelvis tomorrow to reevaluate the colon abscess. If it is not improved or has grown, we will get interventional radiology to reevaluate it for drainage. Captopril IV sta rted for elevated blood pressure. 06/19/2020 Patient states she is having some nausea and vomiting overnight. She does not want to advance her diet to liquid today. She has been getting oral medications with sips of water and ice chips and tolerating this fairly well. I ordered a repeat CT abdomen/pelvis with IV and oral contrast per IR recommendations. If she has a drainable abscess, we will need radiology to address this. Captopril increased, started nifedipine, started Cardura. Patient's blood pressure is still rather uncontrolled, necessitating these changes. Urine culture was mixed . Other than this, patient has no new complaints. UPDATE: Spoke with radiologist about the results of the CT scan and they agreed the patient has a significant increase in the size of her abscess and now has a second abscess in her pelvis as well. They are planning to drain this tomorrow morning and I have ordered coag studies to be done now. We will hold the Lovenox. We will also work on getting the patient's blood pressure down to an acceptable number for surgery. 06/20/2020 Patient has returned from where she had 2 drains placed for the 2 abscesses in her abdomen. According to radiologist, one abscess was drained very well and the second 1 is possibly a seroma from a prior episode of abscess formation as it was very difficult to drain despite multiple attempts. They recommended general surgery consult to evaluate for potential laparotomy needs in the future. I discussed the case with Dr. Ortiz and he recommended treatment with antibiotics and continued percutaneous drainage as needed. I also suggested that the patient might benefit from a hemicolectomy if it is determined that the same portion of her bowel is responsible for these repeat attacks of abscess formation. He was in agreement and stated that this could be addressed at an outpatient general surgery appointment in a month or 2 once the patient is fully recovered. I discussed the plan with the patient and her son at bedside. General surgery agrees patient should be kept n.p.o. except for medications and sips of water for the next few days. 06/21/2020 Patient's drains are still having some moderate output. Patient states she feels a bit better overall but still feels poorly in general. Potassium is low and we are repleting this currently. I have transitioned her captopril to ramipril for affordability when she is discharged in the future. Antibiotics continue. Patient has no new complaints. She has very difficult IV access and I have ordered a PICC line for tomorrow. 06/22/2020 Discussed case with general surgery. They have pulled the drain that was not putting out any fluid and left the other drain in place. Preliminary cultures from abscess drainage currently show gram-negative rods. Will need to follow-up on finalized results. Patient continues on Zosyn. General surgery has started the patient on clear liquid diet as she is passing flatus. Pain seems to be well controlled and general surgery has stopped her narcotics. Her blood cells are trending down and blood pressure still elevated. Increase doxazosin. We are getting closer to blood pressure goal. Reason For Visit: DIVERTICULITIS OF INTESTINE WITH ABSCESS Physical Exam Vital Signs: Temp Pulse Resp BP Pulse Ox 98.4 F 105 H 17 153/58 H 97 06/22/20 15:57 06/22/20 15:57 06/22/20 15:57 06/22/20 15:57 06/22/20 15:57 Intake & Output 06/21/20 06/22/20 06/23/20 06:59 06:59 06:59 Intake Total 1089 1000 Balance 1089 1000 Weight 128.5 kg 128.5 kg Exam: General appearance: PRESENT: no acute distress, well-developed, well-nourished, morbidly obese with BMI 51.5, states she is passing flatus today Head exam: PRESENT: atraumatic, normocephalic Eye exam: PRESENT: conjunctiva pink. ABSENT: scleral icterus Mouth exam: PRESENT: moist Respiratory exam: PRESENT: clear to auscultation pinky. ABSENT: rales, rhonchi, wheezes Cardiovascular exam: PRESENT: RRR. ABSENT: diastolic murmur, rubs, systolic murmur GI/Abdominal exam: PRESENT: normal bowel sounds, soft, moderate tenderness, single drain in place with thick serosanguineous and purulent fluid in the bag. ABSENT: distended, guarding, mass, organolmegaly, rebound Neurological exam: PRESENT: alert, awake, oriented to person, oriented to place, oriented to time, oriented to situation Psychiatric exam: PRESENT: appropriate affect, normal mood Skin exam: PRESENT: dry, intact, warm Results Laboratory Results: 06/22/20 06:21 06/22/20 06:21 06/22/20 06/22/20 06:21 06:21 WBC 7.2 RBC 3.91 Hgb 11.2 L Hct 33.0 L MCV 85 MCH 28.7 MCHC 34.0 RDW 13.6 Plt Count 261 Seg Neutrophils % Not Reportable Sodium 132.7 L Potassium 3.5 L Chloride 94 L Carbon Dioxide 31 H Anion Gap 8 BUN 3 L Creatinine 0.55 Est GFR ( Amer) > 60 Glucose 96 Calcium 8.3 L Impressions: Percutaneous Drainage 06/19/20 00:00 IMPRESSION: 1. Successful placement of a 10 [place]arian all-purpose drainage catheter into the gas-containing fluid collection in the left lower quadrant. Purulent fluid was aspirated from the collection and submitted for analysis. 2. Successful placement of an 8 [place]arian all-purpose drainage catheter into the fluid collection in the left hemipelvis. Serous fluid was aspirated from the collection and submitted for analysis. If there is no output from the drain over the next 24 to 48 hours it is recommended that the drain be removed and a follow-up CT be obtained to re-assess the collection. Abdomen/Pelvis CT 06/19/20 15:30 IMPRESSION: Right lower quadrant abscess has increased in size. It measures approximately 6 x 7 cm. There is an accessible window for percutaneous drainage. The collection in the pelvis is unchanged and probably represents abscess as well. Hounsfield units measure 48. This could be accessed percutaneously as well. PICC Line Insertion 06/22/20 00:00 IMPRESSION: SUCCESSFUL PLACEMENT OF A 5 FR DUAL LUMEN 44 CM PICC IN THE LEFT BASILIC VEIN. Assessment and Plan - Diagnosis (1) Diverticulitis of intestine with abscess Qualifiers: Diverticulitis site: large intestine Diverticulitis bleeding: without bleeding Qualified Code(s): K57.20 - Diverticulitis of large intestine with perforation and abscess without bleeding Is this a current diagnosis for this admission?: Yes (2) Hypertension Qualifiers: Hypertension type: essential hypertension Qualified Code(s): I10 - Essential (primary) hypertension Is this a current diagnosis for this admission?: Yes (3) HLD (hyperlipidemia) Is this a current diagnosis for this admission?: Yes (4) Marijuana use Is this a current diagnosis for this admission?: Yes (5) Obesity Qualifiers: Body mass index: BMI 50.0-59.9 Is this a current diagnosis for this admission?: Yes (6) Perforated sigmoid colon Is this a current diagnosis for this admission?: Yes - Plan Summary Summary: (1) Diverticulitis of intestine with abscess Qualifiers: Diverticulitis site: large intestine Diverticulitis bleeding: without blee sandro Qualified Code(s): K57.20 - Diverticulitis of large intestine with p erforation and abscess without bleeding Is this a current diagnosis for this admission?: Yes Plan: 5 days of nausea/vomiting/abdominal pain/constipation IV fluids Zosyn CT abdomen/pelvis showed sigmoid diverticulitis with abscess, too small to drain per radiology, recommended follow-up CT scan in 2 to 3 days and will reevaluate Repeat CT abdomen/pelvis with oral and IV contrast on 06/19 showed significant increase in size of colon abscess as well as a second pelvic abscess which is new IR CT-guided drainage of 2 intra-abdominal abscesses on 11/7, 2 drains placed General surgery consulted: No plans for open laparotomy due to very high surgical risk due to patient's age and severe obesity combined with comorbidities; patient needs follow-up with general surgery in 1 to 2 months to plan possible hemicolectomy to prevent further abscess formation in the future Coags reviewed Pain medication: Narcotics stopped by general surgery on 06/22 N.p.o. except for meds and sips of water and ice chips for dry mouth; transitioned to clear liquid diet by general surgery on 06/22 Slowly improving Order for PICC line on 06/22 (2) Hypertension Qualifiers: Hypertension type: essential hypertension Qualified Code(s): I10 - Essential (primary) hypertension Is this a current diagnosis for this admission?: Yes Plan: Hold home medications in setting of dehydration Very poorly controlled prior to admission Started ramipril, Cardura, nifedipine, labetalol; gradually increasing regimen (3) HLD (hyperlipidemia) Is this a current diagnosis for this admission?: Yes Plan: Diet controlled per patient (4) Marijuana use Is this a current diagnosis for this admission?: Yes Plan: Without dependence (5) Obesity Qualifiers: Body mass index: BMI 50.0-59.9 Is this a current diagnosis for this admission?: Yes Plan: In dire need of weight loss to avoid future worsening comorbidities (6) Perforated sigmoid colon Is this a current diagnosis for this admission?: Yes Plan: History of this previously, required percutaneous drainage by IR per patient - Time Time Spent with patient: 35 or more minutes Medications reviewed and adjusted accordingly: Yes Anticipated Discharge Disposition: Home with Home Health Anticipated Discharge Timeframe: within 72 hours - Inpatient Certification Based on my medical assessment, after consideration of the patient's comorbi dities, presenting symptoms, or acuity I expect that the services needed warrant INPATIENT care.: Yes I certify that my determination is in accordance with my understanding of Medicare's requirements for reasonable and necessary INPATIENT services [42 CFR 412.3e].: Yes Medical Necessity: Significant Comorbidiites Make Outpatient Treatment Too Risky, Need Close Monitoring Due to Risk of Patient Decompensation, Need for IV Antibiotics, Risk of Complication if Not Cared For in Hospital, Risk of Diagnosis Which Will Require Inpatient Eval/Care/Monitoring
[2020-06-22] MEDS: ACETAMINOPHEN 325 MG TABLET PO PRN (17:30)
[2020-06-22] MEDS: RINGERS SOLUTION,LACTATED 1,000 ML IV PRN (17:31)
[2020-06-23] MEDS: PIPERACILLIN SODIUM/TAZOBACTAM 3.375 GM in NORMAL SALINE 100 ML IV SCH ×3 (00:07→11:50)
[2020-06-23] MEDS: ACETAMINOPHEN 325 MG TABLET PO PRN ×2 (00:10→18:07)
[2020-06-23] MEDS: NIFEDIPINE 30 MG TAB.ER.24 PO SCH ×2 (05:46→18:02)
[2020-06-23] MEDS: RINGERS SOLUTION,LACTATED 1,000 ML IV PRN (05:46)
[2020-06-23 06:59] LABS: HEMATOCRIT 31.1 % (36.0-47.0); HEMOGLOBIN 10.9 g/dL (12.0-15.5); MEAN CORPUSCULAR HEMOGLOBIN 29.6 pg (27.0-33.4); MEAN CORPUSCULAR HGB CONC 34.9 g/dL (32.0-36.0); MEAN CORPUSCULAR VOLUME 85 fl (80-97); PLATELET COUNT 269 10^3/uL (150-450); RED BLOOD COUNT 3.67 10^6/uL (3.72-5.28); RED CELL DISTRIBUTION WIDTH 13.9 % (11.5-14.0); WHITE BLOOD COUNT 5.7 10^3/uL (4.0-10.5)
[2020-06-23 07:25] LABS: ANION GAP 10 (5-19); BLOOD UREA NITROGEN 4 mg/dL (7-20); CALCIUM 8.1 mg/dL (8.4-10.2); CARBON DIOXIDE 26 mmol/L (22-30); CHLORIDE 97 mmol/L (98-107); GLUCOSE 96 mg/dL (75-110); POTASSIUM 3.6 mmol/L (3.6-5.0)
[2020-06-23 07:55] LABS: ABSOLUTE MONOCYTES # (MANUAL) 0.4 10^3/uL (0.1-1.4); BAND NEUTROPHILS % (MANUAL) 1 % (3-5); BASOPHILS % (MANUAL) 0 % (0-2); EOSINOPHILS % (MANUAL) 4 % (0-6); LYMPHOCYTES % (MANUAL) 18 % (13-45); MONOCYTES % (MANUAL) 7 % (3-13); SEGMENTED NEUTROPHILS % (MAN) 70 % (42-78); TOTAL CELLS COUNTED 100
[2020-06-23 07:56] LABS: PLATELET COMMENT ADEQUATE; RBC MORPHOLOGY COMMENT NORMO-CYTIC/CHROMIC
[2020-06-23] MEDS ORDERED: DOXAZOSIN MESYLATE 2 MG TABLET PO SCH (10:00)
[2020-06-23] MEDS: RAMIPRIL 5 MG CAPSULE PO SCH (10:30)
[2020-06-23] MEDS: DOXAZOSIN MESYLATE 4 MG TABLET PO SCH (10:31)
--- NOTE | 2020-06-23 16:38 | PDOC PROGRESS REPORT ---
Subjective Date:: 06/23/20 Subjective:: ELIO COLEMAN is a 64 year old female with past medical history significant fo r morbid obesity with BMI 51.5, HTN, HLD, history of diverticular abscess status post drain who presents to the ED with a 5-day history of progressive abdominal pain/nausea/vomiting/constipation. Patient seen in the ED and was noted on CT abdomen/pelvis to have sigmoid diverticulitis with a very small abscess is not amenable to IR drainage or surgical intervention per radiology. Patient started on IV Zosyn. N.p.o. with sips of water and ice chips as needed for dry mouth. IV fluids. If patient is not improved in approximately 2 to 3 days and abscesses larger of the same on CT scan, interventional radiology will reevaluate the need for percutaneous drainage. Patient does smoke marijuana at least once per week but denies any other drug use or tobacco or alcohol. 06/18/2020 Patient having a bit less pain today but states she still feels poorly most the time. She is requesting food and it appears that nursing overnight was confused about the n.p.o. order and give the patient pudding. We will keep her n.p.o. for today and tonight and start her on a clear liquid diet in the morning if she is doing well. We will also repeat the CT scan of her abdomen/pelvis tomorrow to reevaluate the colon abscess. If it is not improved or has grown, we will get interventional radiology to reevaluate it for drainage. Captopril IV started for elevated blood pressure. 06/19/2020 Patient states she is having some nausea and vomiting overnight. She does not want to advance her diet to liquid today. She has been getting oral medications with sips of water and ice chips and tolerating this fairly well. I ordered a repeat CT abdomen/pelvis with IV and oral contrast per IR recommendations. If she has a drainable abscess, we will need radiology to address this. Captopril increased, started nifedipine, started Cardura. Patient's blood pressure is still rather uncontrolled, necessitating these changes. Urine culture was mixed. Other than this, patient has no new complaints. UPDATE: Spoke with radiologist about the results of the CT scan and they agreed the patient has a significant increase in the size of her abscess and now has a second abscess in her pelvis as well. They are planning to drain this tomorrow morning and I have ordered coag studies to be done now. We will hold the Lovenox. We will also work on getting the patient's blood pressure down to an acceptable number for surgery. 06/20/2020 Patient has returned from where she had 2 drains placed for the 2 abscesses in her abdomen. According to radiologist, one abscess was drained very well and the second 1 is possibly a seroma from a prior episode of abscess formation as it was very difficult to drain despite multiple attempts. They recommended general surgery consult to evaluate for potential laparotomy needs in the future. I discussed the case with Dr. Ortiz and he recommended treatment with antibiotics and continued percutaneous drainage as needed. I also suggested that the patient might benefit from a hemicolectomy if it is determined that the same portion of her bowel is responsible for these repeat attacks of abscess formation. He was in agreement and stated that this could be addressed at an outpatient general surgery appointment in a month or 2 once the patient is fully recovered. I discussed the plan with the patient and her son at bedside. General surgery agrees patient should be kept n.p.o. except for medications and sips of water for the next few days. 06/21/2020 Patient's drains are still having some moderate output. Patient states she feels a bit better overall but still feels poorly in general. Potassium is low and we are repleting this currently. I have transitioned her captopril to ramipril for affordability when she is discharged in the future. Antibiotics continue. Patient has no new complaints. She has very difficult IV access and I have ordered a PICC line for tomorrow. 06/22/2020 Discussed case with general surgery. They have pulled the drain that was not putting out any fluid and left the other drain in place. Preliminary cultures from abscess drainage currently show gram-negative rods. Will need to follow-up on finalized results. Patient continues on Zosyn. General surgery has started the patient on clear liquid diet as she is passing flatus. Pain seems to be well controlled and general surgery has stopped her narcotics. Her blood cells are trending down and blood pressure still elevated. Increase doxazosin. We are getting closer to blood pressure goal. 06/23/20 She was seen and examined at bedside. She is tolerating clear liquid diet. She is passing gas and has had a bowel movement, minimal abdominal pain. Reason For Visit: DIVERTICULITIS OF INTESTINE WITH ABSCESS Physical Exam Vital Signs: Temp Pulse Resp BP Pulse Ox 98.2 F 98 17 152/68 H 98 06/23/20 11:27 06/23/20 11:27 06/23/20 11:27 06/23/20 11:27 06/23/20 11:27 Intake & Output 06/22/20 06/23/20 06/24/20 06:59 06:59 06:59 Intake Total 1999 1159 360 Balance 1999 1159 360 Weight 128.5 kg 128.5 kg 128.5 kg General appearance: PRESENT: no acute distress, cooperative, morbidly obese Head exam: PRESENT: atraumatic, normocephalic Eye exam: PRESENT: EOMI, PERRLA Mouth exam: PRESENT: moist Neck exam: PRESENT: full ROM Respiratory exam: PRESENT: clear to auscultation pinky, symmetrical, unlabored Cardiovascular exam: PRESENT: RRR, +S1, +S2 GI/Abdominal exam: PRESENT: normal bowel sounds, soft. ABSENT: rebound, tenderness Extremities exam: PRESENT: full ROM Musculoskeletal exam: PRESENT: full ROM Neurological exam: PRESENT: alert, awake, oriented to person, oriented to time, oriented to situation Psychiatric exam: PRESENT: normal mood Skin exam: PRESENT: normal color Results Laboratory Results: 06/23/20 05:20 06/23/20 05:20 06/23/20 06/23/20 05:20 05:20 WBC 5.7 RBC 3.67 L Hgb 10.9 L Hct 31.1 L MCV 85 MCH 29.6 MCHC 34.9 RDW 13.9 Plt Count 269 Seg Neutrophils % Not Reportable Sodium 132.7 L Potassium 3.6 Chloride 97 L Carbon Dioxide 26 Anion Gap 10 BUN 4 L Creatinine 0.54 Est GFR ( Amer) > 60 Glucose 96 Calcium 8.1 L 06/20/20 12:00 Abdomen - Abscess Gram Stain - Final 06/20/20 12:00 Abdomen - Abscess Body Fluid Culture - Final Escherichia Coli Prevotella Species Peptoniphilus Species 06/20/20 12:00 Abdomen - Abscess Gram Stain - Final 06/20/20 12:00 Abdomen - Abscess Body Fluid Culture - Final NO AEROBIC OR ANAEROBIC ORGANISMS RECOVERED Impressions: Percutaneous Drainage 06/19/20 00:00 IMPRESSION: 1. Successful placement of a 10 [place] all-purpose drainage jonas ter into the gas-containing fluid collection in the left lower quadrant. Purulent fluid was aspirated from the collection and submitted for analysis. 2. Successful placement of an 8 [place] all-purpose drainage catheter into the fluid collection in the left hemipelvis. Serous fluid was aspirated from the collection and submitted for analysis. If there is no output from the drain over the next 24 to 48 hours it is recommended that the drain be removed and a follow-up CT be obtained to re-assess the collection. Abdomen/Pelvis CT 06/19/20 15:30 IMPRESSION: Right lower quadrant abscess has increased in size. It measures approximately 6 x 7 cm. There is an accessible window for percutaneous drainage. The collection in the pelvis is unchanged and probably represents abscess as well. Hounsfield units measure 48. This could be accessed percutaneously as well. PICC Line Insertion 06/22/20 00:00 IMPRESSION: SUCCESSFUL PLACEMENT OF A 5 FR DUAL LUMEN 44 CM PICC IN THE LEFT BASILIC VEIN. Assessment and Plan - Diagnosis (1) Diverticulitis of intestine with abscess Qualifiers: Diverticulitis site: large intestine Diverticulitis bleeding: without bleeding Qualified Code(s): K57.20 - Diverticulitis of large intestine with perforation and abscess without bleeding Is this a current diagnosis for this admission?: Yes Plan: - CT abdomen/pelvis showed sigmoid diverticulitis with abscess, too small to drain per radiology, recommended follow-up CT scan in 2 to 3 days and will reevaluate Repeat CT abdomen/pelvis with oral and IV contrast on 06/19 showed significant increase in size of colon abscess as well as a second pelvic abscess which is new IR CT-guided drainage of 2 intra-abdominal abscesses on 06/20, 2 drains placed - tolerating clear liquid- plan to advance - will switch to oral cephalosphorin -We will need surgery follow-up in 1 to 2 months for possible elective hemicolectomy - has a PICC Line (2) Hypertension Qualifiers: Hypertension type: essential hypertension Qualified Code(s): I10 - Essential (primary) hypertension Is this a current diagnosis for this admission?: Yes Plan: Resumed nifedipine, doxazosin, ramipril for her blood pressure (3) HLD (hyperlipidemia) Is this a current diagnosis for this admission?: Yes Plan: Diet controlled per patient (4) Marijuana use Is this a current diagnosis for this admission?: Yes Plan: Without dependence (5) Obesity Qualifiers: Body mass index: BMI 50.0-59.9 Is this a current diagnosis for this admission?: Yes Plan: In dire need of weight loss to avoid future comorbidities (6) Perforated sigmoid colon Is this a current diagnosis for this admission?: Yes Plan: Percutaneous drainage placed by IR - Time Time Spent with patient: 25-34 minutes Anticipated Discharge Disposition: Home, Self Care Anticipated Discharge Timeframe: within 48 hours
--- NOTE | 2020-06-23 18:20 | PDOC PROGRESS REPORT ---
Subjective Date:: 06/23/20 Subjective:: Patient comfortable, denies abdominal pain, bowel function present Reason For Visit: DIVERTICULITIS OF INTESTINE WITH ABSCESS Physical Exam Vital Signs: Temp Pulse Resp BP Pulse Ox 98.5 F 100 17 129/60 H 95 06/23/20 17:47 06/23/20 17:47 06/23/20 17:47 06/23/20 17:47 06/23/20 17:47 Intake & Output 06/22/20 06/23/20 06/24/20 06:59 06:59 06:59 Intake Total 1999 1159 360 Balance 1999 1159 360 Weight 128.5 kg 128.5 kg 128.5 kg General appearance: PRESENT: no acute distress GI/Abdominal exam: PRESENT: normal bowel sounds, soft, other - Not distended, not tender, left lower abdominal drain filled with serous fluid Results Laboratory Results: 06/23/20 05:20 06/23/20 05:20 06/23/20 06/23/20 05:20 05:20 WBC 5.7 RBC 3.67 L Hgb 10.9 L Hct 31.1 L MCV 85 MCH 29.6 MCHC 34.9 RDW 13.9 Plt Count 269 Seg Neutrophils % Not Reportable Sodium 132.7 L Potassium 3.6 Chloride 97 L Carbon Dioxide 26 Anion Gap 10 BUN 4 L Creatinine 0.54 Est GFR ( Amer) > 60 Glucose 96 Calcium 8.1 L 06/20/20 12:00 Abdomen - Abscess Gram Stain - Final 06/20/20 12:00 Abdomen - Abscess Body Fluid Culture - Final Escherichia Coli Prevotella Species Peptoniphilus Species 06/20/20 12:00 Abdomen - Abscess Gram Stain - Final 06/20/20 12:00 Abdomen - Abscess Body Fluid Culture - Final NO AEROBIC OR ANAEROBIC ORGANISMS RECOVERED Impressions: Percutaneous Drainage 06/19/20 00:00 IMPRESSION: 1. Successful placement of a 10 [place] all-purpose drainage catheter into the gas-containing fluid collection in the left lower quadrant. Purulent fluid was aspirated from the collection and submitted for analysis. 2. Successful placement of an 8 [place] all-purpose drainage catheter into the fluid collection in the left hemipelvis. Serous fluid was aspirated from the collection and submitted for analysis. If there is no output from the drain over the next 24 to 48 hours it is recommended that the drain be removed and a follow-up CT be obtained to re-assess the collection. Abdomen/Pelvis CT 06/19/20 15:30 IMPRESSION: Right lower quadrant abscess has increased in size. It measures approximately 6 x 7 cm. There is an accessible window for percutaneous drainage. The collection in the pelvis is unchanged and probably represents abscess as well. Hounsfield units measure 48. This could be accessed percutaneously as well. PICC Line Insertion 06/22/20 00:00 IMPRESSION: SUCCESSFUL PLACEMENT OF A 5 FR DUAL LUMEN 44 CM PICC IN THE LEFT BASILIC VEIN. Assessment & Plan - Diagnosis (1) Diverticulitis of intestine with abscess Qualifiers: Diverticulitis site: large intestine Diverticulitis bleeding: without bleeding Qualified Code(s): K57.20 - Diverticulitis of large intestine with perforation and abscess without bleeding Is this a current diagnosis for this admission?: Yes (2) Abdominal pain Qualifiers: Abdominal location: left lower quadrant Qualified Code(s): R10.32 - Left lower quadrant pain Is this a current diagnosis for this admission?: Yes (3) Diverticulitis Qualifiers: Diverticulitis site: large intestine Diverticulitis complication: with abscess Is this a current diagnosis for this admission?: Yes (4) Obesity Qualifiers: Body mass index: BMI 50.0-59.9 Is this a current diagnosis for this admission?: Yes - Time Anticipated Discharge Disposition: Home with Home Health Anticipated Discharge Timeframe: within 48 hours - Plan Summary Plan Summary: Assessment: Perforated sigmoid diverticulitis with pelvic abscess Postop day #3 following a interventional urology drainage of pelvic abscess Small amount of drainage from the radiology drain Normal white blood cell count Patient on oral antibiotics (cefepime) Physical exam demonstrates a benign abdomen Plan: Advance diet to full liquids Check output of drain tomorrow If the patient continues to improve, she can be discharged discharge tomorrow on oral antibiotics for 1 week and follow-up in the surgery clinic in 1 week for drain removal
[2020-06-23] MEDS: CEFUROXIME 500 MG TABLET PO SCH (21:48)
[2020-06-24] MEDS: NIFEDIPINE 30 MG TAB.ER.24 PO SCH (06:18)
--- NOTE | 2020-06-24 09:22 | PDOC PROGRESS REPORT ---
Subjective Date:: 06/24/20 Subjective:: No complaints Reason For Visit: DIVERTICULITIS OF INTESTINE WITH ABSCESS Physical Exam Vital Signs: Temp Pulse Resp BP Pulse Ox 98.3 F 119 H 17 131/69 H 97 06/24/20 07:44 06/24/20 07:44 06/24/20 07:44 06/24/20 07:44 06/24/20 07:44 Intake & Output 06/23/20 06/24/20 06/25/20 06:59 06:59 06:59 Intake Total 1159 2770 Output Total 200 Balance 1159 2570 Weight 128.5 kg 128.5 kg General appearance: PRESENT: obese GI/Abdominal exam: PRESENT: soft, other - drain in the left lower abdomen with s erosanguineous fluid Results Laboratory Results: 06/23/20 05:20 06/23/20 05:20 06/20/20 12:00 Abdomen - Abscess Gram Stain - Final 06/20/20 12:00 Abdomen - Abscess Body Fluid Culture - Final Escherichia Coli Prevotella Species Peptoniphilus Species 06/20/20 12:00 Abdomen - Abscess Gram Stain - Final 06/20/20 12:00 Abdomen - Abscess Body Fluid Culture - Final NO AEROBIC OR ANAEROBIC ORGANISMS RECOVERED Impressions: Percutaneous Drainage 06/19/20 00:00 IMPRESSION: 1. Successful placement of a 10 [place] all-purpose drainage catheter into the gas-containing fluid collection in the left lower quadrant. Purulent fluid was aspirated from the collection and submitted for analysis. 2. Successful placement of an 8 [place] all-purpose drainage catheter into the fluid collection in the left hemipelvis. Serous fluid was aspirated from the collection and submitted for analysis. If there is no output from the drain over the next 24 to 48 hours it is recommended that the drain be removed and a follow-up CT be obtained to re-assess the collection. Abdomen/Pelvis CT 06/19/20 15:30 IMPRESSION: Right lower quadrant abscess has increased in size. It measures approximately 6 x 7 cm. There is an accessible window for percutaneous drainage. The collection in the pelvis is unchanged and probably represents abscess as well. Hounsfield units measure 48. This could be accessed percutaneously as well. PICC Line Insertion 06/22/20 00:00 IMPRESSION: SUCCESSFUL PLACEMENT OF A 5 FR DUAL LUMEN 44 CM PICC IN THE LEFT BASILIC VEIN. Assessment & Plan - Diagnosis (1) Diverticulitis of intestine with abscess Qualifiers: Diverticulitis site: large intestine Diverticulitis bleeding: without bleeding Qualified Code(s): K57.20 - Diverticulitis of large intestine with perforation and abscess without bleeding Is this a current diagnosis for this admission?: Yes (2) Abdominal pain Qualifiers: Abdominal location: left lower quadrant Qualified Code(s): R10.32 - Left lower quadrant pain Is this a current diagnosis for this admission?: Yes (3) Diverticulitis Qualifiers: Diverticulitis site: large intestine Diverticulitis complication: with abscess Is this a current diagnosis for this admission?: Yes (4) Obesity Qualifiers: Body mass index: BMI 50.0-59.9 Is this a current diagnosis for this admission?: Yes - Time Anticipated Discharge Disposition: Home with Home Health Anticipated Discharge Timeframe: within 24 hours - Plan Summary Plan Summary: Assessment: Perforated sigmoid diverticulitis with pelvic abscess Postop day #4 following a interventional urology drainage of pelvic abscess Small amount of bloody drainage from the radiology drain since last night (60 mL) Normal WBC Patient on oral antibiotics (cefepime) Physical exam demonstrates a benign abdomen Plan: Advance diet to low residue diet for 6 weeks Patient can be discharged to home today Continue oral antibiotics (cefepime) for 2 weeks Follow-up in the surgery clinic in 2 weeks for drain removal Empty drain daily and bring record of output at the time of the surgical clinic appointment Sponge bath only until drain is in place I will sign off, please call me with questions
[2020-06-24] MEDS: RAMIPRIL 5 MG CAPSULE PO SCH (09:24)
[2020-06-24] MEDS: CEFUROXIME 500 MG TABLET PO SCH (09:24)
[2020-06-24] MEDS: DOXAZOSIN MESYLATE 4 MG TABLET PO SCH (09:26)
[2020-06-24 13:22] VITALS: BP 151/89
[2020-06-24] MEDS ORDERED: INFLUENZA QUAD (6MOS+) 2020-21 VAC 0.5 ML SYR IM ONE (18:00)
--- NOTE | 2020-06-25 06:51 | PDOC DISCHARGE SUMMARY ---
Impression - Admit/DC Date/PCP Admission Date/Primary Care Provider: 06/17/20 16:35 Discharge Date: 06/25/20 - Discharge Diagnosis (1) Diverticulitis of intestine with abscess Is this a current diagnosis for this admission?: Yes (2) Hypertension Is this a current diagnosis for this admission?: Yes (3) HLD (hyperlipidemia) Is this a current diagnosis for this admission?: Yes (4) Marijuana use Is this a current diagnosis for this admission?: Yes (5) Obesity Is this a current diagnosis for this admission?: Yes (6) Perforated sigmoid colon Is this a current diagnosis for this admission?: Yes - Assessment Summary: (1) Diverticulitis of intestine with abscess Qualifiers: Diverticulitis site: large intestine Diverticulitis bleeding: without bleeding Qualified Code(s): K57.20 - Diverticulitis of large intestine with perforation and abscess without bleeding Is this a current diagnosis for this admission?: Yes Plan: - CT abdomen/pelvis showed sigmoid diverticulitis with abscess, too small to drain per radiology, recommended follow-up CT scan in 2 to 3 days and will reevaluate Repeat CT abdomen/pelvis with oral and IV contrast on 06/19 showed significant increase in size of colon abscess as well as a second pelvic abscess which is new IR CT-guided drainage of 2 intra-abdominal abscesses on 06/20, 2 drains placed - tolerating clear liquid- plan to advance - will switch to oral cephalosphorin -We will need surgery follow-up in 1 to 2 months for possible elective hemicolectomy - has a PICC Line (2) Hypertension Qualifiers: Hypertension type: essential hypertension Qualified Code(s): I10 - Essential (primary) hypertension Is this a current diagnosis for this admission?: Yes Plan: Resumed nifedipine, doxazosin, ramipril for her blood pressure (3) HLD (hyperlipidemia) Is this a current diagnosis for this admission?: Yes Plan: Diet controlled per patient (4) Marijuana use Is this a current diagnosis for this admission?: Yes Plan: Without dependence (5) Obesity Qualifiers: Body mass index: BMI 50.0-59.9 Is this a current diagnosis for this admission?: Yes Plan: In dire need of weight loss to avoid future comorbidities (6) Perforated sigmoid colon Is this a current diagnosis for this admission?: Yes Plan: Percutaneous drainage placed by IR - Additional Information Resuscitation Status: Full Code Discharge Diet: Other (Comments) Discharge Activity: Activity As Tolerated Referrals: GRAYSON FLOREZ PA-C [[employer] [facility]ESSIONAL] - 07/06/20 1:15 pm Prescriptions: Ramipril [Altace 5 mg Capsule] 5 mg PO DAILY 30 Days #30 capsule Doxazosin Mesylate [Cardura 4 mg Tablet] 4 mg PO DAILY 30 Days #30 tablet Cefuroxime Axetil [Ceftin 500 mg Tablet] 500 mg PO Q12 7 Days #14 tablet Nifedipine [Procardia XL 30 mg Tablet] 30 mg PO Q12A 30 Days #60 tab.[id number] Acetaminophen [Tylenol 325 mg Tablet] 650 mg PO Q4HP PRN 7 Days #15 tablet PRN Reason: Home Medications: Acetaminophen [Tylenol 325 mg Tablet] 650 mg PO Q4HP PRN 7 Days #15 tablet 06/24/20 Cefuroxime Axetil [Ceftin 500 mg Tablet] 500 mg PO Q12 7 Days #14 tablet 06/24/20 Doxazosin Mesylate [Cardura 4 mg Tablet] 4 mg PO DAILY 30 Days #30 tablet 06/24/20 Nifedipine [Procardia XL 30 mg Tablet] 30 mg PO Q12A 30 Days #60 tab.er.[id number] 06/24/20 Ramipril [Altace 5 mg Capsule] 5 mg PO DAILY 30 Days #30 capsule 06/24/20 History of Present Illiness History of Present Illness: ELIO COLEMAN is a 64 year old female, with past medical history significant for morbid obesity with BMI 51.5, HTN, HLD, history of diverticular abscess status post drain who presents to the ED with a 5-day history of progressive abdominal pain/nausea/vomiting/constipation. Patient seen in the ED and was noted on CT abdomen/pelvis to have sigmoid diverticulitis with a very small abscess is not amenable to IR drainage or surgical intervention per radiology. Patient started on IV Zosyn. N.p.o. with sips of water and ice chips as needed for dry mouth. IV fluids. If patient is not improved in approximately 2 to 3 days and abscesses larger of the same on CT scan, interventional radiology will reevaluate the need for percutaneous drainage. Patient does smoke marijuana at least once per week but denies any other drug use or tobacco or alcohol. Hospital Course Hospital Course: 06/18/2020 Patient having a bit less pain today but states she still feels poorly most the time. She is requesting food and it appears that nursing overnight was confused about the n.p.o. order and give the patient pudding. We will keep her n.p.o. for today and tonight and start her on a clear liquid diet in the morning if she is doing well. We will also repeat the CT scan of her abdomen/pelvis tomorrow to reevaluate the colon abscess. If it is not improved or has grown, we will get interventional radiology to reevaluate it for drainage. Captopril IV started for elevated blood pressure. 06/19/2020 Patient states she is having some nausea and vomiting overnight. She does not want to advance her diet to liquid today. She has been getting oral medications with sips of water and ice chips and tolerating this fairly well. I ordered a repeat CT abdomen/pelvis with IV and oral contrast per IR recommendations. If she has a drainable abscess, we will need radiology to address this. Captopril increased, started nifedipine, started Cardura. Patient's blood pressure is still rather uncontrolled, necessitating these changes. Urine culture was mixed. Other than this, patient has no new complaints. UPDATE: Spoke with radiologist about the results of the CT scan and they agreed the patient has a significant increase in the size of her abscess and now has a second abscess in her pelvis as well. They are planning to drain this tomorrow morning and I have ordered coag studies to be done now. We will hold the Lovenox. We will also work on getting the patient's blood pressure down to an acceptable number for surgery. 06/20/2020 Patient has returned from IR where she had 2 drains placed for the 2 abscesses in her abdomen. According to radiologist, one abscess was drained very well and the second 1 is possibly a seroma from a prior episode of abscess formation as it was very difficult to drain despite multiple attempts. They recommended general surgery consult to evaluate for potential laparotomy needs in the future. I discussed the case with Dr. Ortiz and he recommended treatment with antibiotics and continued percutaneous drainage as needed. I also suggested that the patient might benefit from a hemicolectomy if it is determined that the same portion of her bowel is responsible for these repeat attacks of abscess formation. He was in agreement and stated that this could be addressed at an outpatient general surgery appointment in a month or 2 once the patient is fully recovered. I discussed the plan with the patient and her son at bedside. General surgery agrees patient should be kept n.p.o. except for medications and sips of water for the next few days. 06/21/2020 Patient's drains are still having some moderate output. Patient states she feels a bit better overall but still feels poorly in general. Potassium is low and we are repleting this currently. I have transitioned her captopril to ramipril for affordability when she is discharged in the future. Antibiotics continue. Patient has no new complaints. She has very difficult IV access and I have ordered a PICC line for tomorrow. 06/22/2020 Discussed case with general surgery. They have pulled the drain that was not putting out any fluid and left the other drain in place. Preliminary cultures from abscess drainage currently show gram-negative rods. Will need to follow-up on finalized results. Patient continues on Zosyn. General surgery has started the patient on clear liquid diet as she is passing flatus. Pain seems to be well controlled and general surgery has stopped her narcotics. Her blood cells are trending down and blood pressure still elevated. Increase doxazosin. We are getting closer to blood pressure goal. 06/23/20 She was seen and examined at bedside. She is tolerating clear liquid diet. She is passing gas and has had a bowel movement, minimal abdominal pain. 06/24/20 Patient was seen at beside, tolerating general diet. Discharged with a drain and abx. Drain to be removed by Dr. Ortiz after 1 week Physical Exam Vital Signs: Temp Pulse Resp BP Pulse Ox 97.8 F 105 H 16 151/89 H 99 06/24/20 13:38 06/24/20 13:38 06/24/20 13:38 06/24/20 13:38 06/24/20 13:38 Intake & Output 06/23/20 06/24/20 06/25/20 06:59 06:59 06:59 Intake Total 1159 2770 Output Total 200 Balance 1159 2570 Weight 128.5 kg 128.5 kg General appearance: PRESENT: no acute distress, cooperative, obese Head exam: PRESENT: atraumatic, normocephalic Eye exam: PRESENT: EOMI, PERRLA Mouth exam: PRESENT: moist Neck exam: PRESENT: full ROM Respiratory exam: PRESENT: clear to auscultation pinky, symmetrical, unlabored GI/Abdominal exam: PRESENT: normal bowel sounds, soft. ABSENT: rebound, tenderness Extremities exam: PRESENT: full ROM Musculoskeletal exam: PRESENT: ambulatory, full ROM Neurological exam: PRESENT: alert, awake, oriented to person, oriented to place, oriented to time, oriented to situation Psychiatric exam: PRESENT: normal mood Skin exam: PRESENT: normal color Results Laboratory Results: WBC 5.7 10^3/uL (4.0-10.5) 06/23/20 05:20 RBC 3.67 10^6/uL (3.72-5.28) L 06/23/20 05:20 Hgb 10.9 g/dL (12.0-15.5) L 06/23/20 05:20 Hct 31.1 % (36.0-47.0) L 06/23/20 05:20 MCV 85 fl (80-97) 06/23/20 05:20 MCH 29.6 pg (27.0-33.4) 06/23/20 05:20 MCHC 34.9 g/dL (32.0-36.0) 06/23/20 05:20 RDW 13.9 % (11.5-14.0) 06/23/20 05:20 Plt Count 269 10^3/uL (150-450) 06/23/20 05:20 Lymph % (Auto) Not Reportable 06/23/20 05:20 [place] % (Auto) Not Reportable 06/23/20 05:20 Eos % (Auto) Not Reportable 06/23/20 05:20 Baso % (Auto) Not Reportable 06/23/20 05:20 Absolute Neuts (auto) Not Reportable 06/23/20 05:20 Absolute Lymphs (auto) Not Reportable 06/23/20 05:20 Absolute Monos (auto) Not Reportable 06/23/20 05:20 Absolute Eos (auto) Not Reportable 06/23/20 05:20 Absolute Basos (auto) Not Reportable 06/23/20 05:20 Total Counted 100 06/23/20 05:20 Seg Neutrophils % Not Reportable 06/23/20 05:20 Seg Neuts % (Manual) 70 % (42-78) 06/23/20 05:20 Band Neutrophils % 1 % (3-5) L 06/23/20 05:20 Lymphocytes % (Manual) 18 % (13-45) 06/23/20 05:20 Monocytes % (Manual) 7 % (3-13) 06/23/20 05:20 Eosinophils % (Manual) 4 % (0-6) 06/23/20 05:20 Basophils % (Manual) 0 % (0-2) 06/23/20 05:20 Abs Neuts (Manual) 4.0 10^3/uL (1.7-8.2) 06/23/20 05:20 Abs Lymphs (Manual) 1.0 10^3/uL (0.5-4.7) 06/23/20 05:20 Abs Monocytes (Manual) 0.4 10^3/uL (0.1-1.4) 06/23/20 05:20 Absolute Eos (Manual) 0.2 10^3/uL (0.0-0.6) 06/23/20 05:20 Abs Basophils (Manual) 0.0 10^3/uL (0.0-0.2) 06/23/20 05:20 Platelet Comment ADEQUATE 06/23/20 05:20 RBC Morph Comment NORMO-CYTIC/CHROMIC 06/23/20 05:20 PT 14.2 SEC (11.4-15.4) 06/19/20 18:18 INR 1.08 06/19/20 18:18 APTT 37.5 SEC (23.5-35.8) H 06/19/20 18:18 Sodium 132.7 mmol/L (137-145) L 06/23/20 05:20 Potassium 3.6 mmol/L (3.6-5.0) 06/23/20 05:20 Chloride 97 mmol/L (98-107) L 06/23/20 05:20 Carbon Dioxide 26 mmol/L (22-30) 06/23/20 05:20 Anion Gap 10 (5-19) 06/23/20 05:20 BUN 4 mg/dL (7-20) L 06/23/20 05:20 Creatinine 0.54 mg/dL (0.52-1.25) 06/23/20 05:20 Est GFR ( Amer) > 60 (>60) 06/23/20 05:20 Est GFR (MDRD) Non-Af > 60 (>60) 06/23/20 05:20 Glucose 96 mg/dL (75-110) 06/23/20 05:20 Calcium 8.1 mg/dL (8.4-10.2) L 06/23/20 05:20 Phosphorus 2.7 mg/dL (2.5-4.5) 06/18/20 05:05 Magnesium 1.9 mg/dL (1.6-2.3) 06/20/20 05:53 Total Bilirubin 0.7 mg/dL (0.2-1.3) 06/17/20 12:15 Direct Bilirubin 0.4 mg/dL (0.0-0.4) 06/17/20 12:15 Neonat Total Bilirubin Not Reportable 06/17/20 12:15 Neonat Direct Bilirubin Not Reportable 06/17/20 12:15 Neonat Indirect Bili Not Reportable 06/17/20 12:15 AST 27 U/L (14-36) 06/17/20 12:15 ALT 16 U/L (<35) 06/17/20 12:15 Alkaline Phosphatase 148 U/L (38-126) H 06/17/20 12:15 Total Protein 7.6 g/dL (6.3-8.2) 06/17/20 12:15 Albumin 3.7 g/dL (3.5-5.0) 06/17/20 12:15 Urine Color YELLOW 06/17/20 13:01 Urine Appearance CLEAR 06/17/20 13:01 Urine pH 6.0 (5.0-9.0) 06/17/20 13:01 Ur Specific [place] 1.015 06/17/20 13:01 Urine Protein 30 mg/dL (NEGATIVE) H 06/17/20 13:01 Urine Glucose (UA) NEGATIVE mg/dL (NEGATIVE) 06/17/20 13:01 Urine Ketones NEGATIVE mg/dL (NEGATIVE) 06/17/20 13:01 Urine Blood NEGATIVE (NEGATIVE) 06/17/20 13:01 Urine Nitrite NEGATIVE (NEGATIVE) 06/17/20 13:01 Urine Bilirubin NEGATIVE (NEGATIVE) 06/17/20 13:01 Urine Urobilinogen 4.0 mg/dL (<2.0) H 06/17/20 13:01 Ur Leukocyte Esterase NEGATIVE (NEGATIVE) 06/17/20 13:01 Urine WBC (Auto) 2 /HPF 06/17/20 13:01 Urine RBC (Auto) 1 /HPF 06/17/20 13:01 Squamous Epi Cells Auto 1 /HPF 06/17/20 13:01 Urine Mucus (Auto) OCC /LPF 06/17/20 13:01 Urine Ascorbic Acid NEGATIVE (NEGATIVE) 06/17/20 13:01 Impressions: Abdomen/Pelvis CT 06/17/20 10:41 IMPRESSION: Sigmoid diverticulitis. Small mural abscess. Currently not amenable to CT-guided drainage. Percutaneous Drainage 06/19/20 00:00 IMPRESSION: 1. Successful placement of a 10 [place] all-purpose drainage catheter into the gas-containing fluid collection in the left lower quadrant. Purulent fluid was aspirated from the collection and submitted for analysis. 2. Successful placement of an 8 [place] all-purpose drainage catheter into the fluid collection in the left hemipelvis. Serous fluid was aspirated from the collection and submitted for analysis. If there is no output from the drain over the next 24 to 48 hours it is recommended that the drain be removed and a follow-up CT be obtained to re-assess the collection. Abdomen/Pelvis CT 06/19/20 15:30 IMPRESSION: Right lower quadrant abscess has increased in size. It measures approximately 6 x 7 cm. There is an accessible window for percutaneous drainage. The collection in the pelvis is unchanged and probably represents abscess as well. Hounsfield units measure 48. This could be accessed percutaneously as well. PICC Line Insertion 06/22/20 00:00 IMPRESSION: SUCCESSFUL PLACEMENT OF A 5 FR DUAL LUMEN 44 CM PICC IN THE LEFT BASILIC VEIN. Plan Plan of Treatment: Diverticulitis You have been diagnosed as having diverticulitis. This is an inflammation of a small pouch attached to the colon, called a diverticulum. Many of these small pouches can form on the colon as you get older. They are often caused by constipation. When inflamed or infected, symptoms arise -- usually abdominal pain, constipation or diarrhea, fever, and blood in the stool. Severe diverticulitis may require hospitalization. More mild cases are usually treated with antibiotics and clear liquid diet. As you improve, a diet low in residue (one which forms little stool) is prescribed. When you are better, you should eat a high-fiber diet. Stool softeners (like Metamucil) are usually recommended. Call the doctor or go to the hospital if there is increasing pain, vomiting, high fever, large amounts of blood passed, or if bowel movements cease. Time Spent: Greater than 30 Minutes Stroke Is this a Stroke Patient?: No Acute Heart Failure Is this a Heart Failure Patient?: No
== END 2020-06-24 13:42 | disposition home or self-care (01) | DRG 392 ==
LOC: ER 10:15 → EH 16:35 → 4S 18:03
PROVIDERS: ADMIT Internal Medicine; ATTEND Internal Medicine
PROC: 05HY33Z Insertion of Infusion Device into Upper Vein, Percutaneous Approach (ICD-10-PCS; principal; 2020-06-17)
PROC: 0D9N30Z Drainage of Sigmoid Colon with Drainage Device, Percutaneous Approach (ICD-10-PCS; 2020-06-19)
DX: K57.20 Diverticulitis of large intestine with perforation and abscess without bleeding (principal); Z68.43 Body mass index [BMI] 50.0-59.9, adult; I10 Essential (primary) hypertension; E78.5 Hyperlipidemia, unspecified; E66.01 Morbid (severe) obesity due to excess calories; Z79.899 Other long term (current) drug therapy; Z88.8 Allergy status to other drugs, medicaments and biological substances
CPT/HCPCS: 36415; 36573; 74177; 75989; 80048; 80053; 81001; 83735; 84100; 85025; 85610; 85730; 87070; 87075; 87077; 87086; 87186; 87205; 90471; 90686; 96361; 96374; 96375; 99285; C1729; C1769; C1894; G0008; J1642; J1650; J2270; J2405; J2543; J3480; J3490; J7030; J7050; J7120

== ENCOUNTER → 2020-07-03 | Outpatient (CLI) | payer MEDICARE, MEDICAID ==
--- NOTE | 2020-07-03 10:28 | RADIOLOGY REPORT (SQ) ---
EXAM DESCRIPTION: CT ABD/PELVIS WITH IV ORAL IMAGES COMPLETED DATE/TIME: 07/03/2020 10:09 am REASON FOR STUDY: K57.20 DVTRCLI OF LG INT W PERFORATION AND ABSCESS W/O BLEEDING K57.20 DVTRCLI OF LG INT W PERFORATION AND ABSCESS W/O BLEED COMPARISON: 06/19/2020 TECHNIQUE: CT scan of the abdomen and pelvis performed using helical scanning technique with dynamic intravenous contrast injection. No oral contrast. Images reviewed with lung, soft tissue, and bone windows. Reconstructed coronal and sagittal MPR images reviewed. Delayed images for evaluation of the urinary system also acquired. All images stored on PACS. All CT scanners at this facility use dose modulation, iterative reconstruction, and/or weight based d osing when appropriate to reduce radiation dose to as low as reasonably achievable (ALARA). [facility]: Dose Right [facility]: CareDose [facility]: Dose Right [facility]: Teradose 4D [facility]: [employer] CONTRAST TYPE AND DOSE: contrast/concentration: Isovue 350.00 mmol/ml; Total Contrast Delivered: 100 .0 ml; Total Saline Delivered: 44.9 ml RENAL FUNCTION: Creatinine 0.9 RADIATION DOSE: CT Rad equipment meets quality standard of care and radiation dose reduction techniq ues were employed. CTDIvol: 22.5 - 31.0 mGy. DLP: 2978 mGy-cm.. LIMITATIONS: None. FINDINGS: LOWER CHEST: No significant findings. No nodules or infiltrates. LIVER: Normal size. No masses. No dilated ducts. SPLEEN: Normal size. No focal lesions. PANCREAS: No masses. No significant calcifications. No adjacent inflammation or peripancreatic fluid collections. Pancreatic duct not dilated. GALLBLADDER: Gallbladder is distended with stones. ADRENAL GLANDS: No significant masses or asymmetry. RIGHT KIDNEY AND URETER: No solid masses. No significant calcifications. No hydronephrosis or hyd roureter. LEFT KIDNEY AND URETER: No solid masses. Small cortical cyst. No significant calcifications. No hydronephrosis or hydroureter. AORTA AND VESSELS: No aneurysm. No dissection. Renal arteries, SMA, celiac without stenosis. RETROPERITONEUM: No retroperitoneal adenopathy, hemorrhage or masses. BOWEL AND PERITONEAL CAVITY: Percutaneous drain remains in place in the left lower quadrant abscess. Small persistent air collection is noted adjacent to the descending colon on series 2, image 57. Th is could represent residual abscess or possibly diverticulum. Descending colonic wall remains thicke evelyn consistent with persistent inflammation. APPENDIX: Normal. PELVIS: Persistent fluid collections in the pelvis. On the right there is a 5.4 x 4 cm collection th is is slightly increased from prior study. Previously largest diameter was 4.9 cm. Collection along the left lateral pelvic sidewall measures 8.4 x 2.2 cm in greatest AP and transverse dimensions. It extends cranial caudally 5.5 cm. The drain which was previously placed in this collection has been removed. ABDOMINAL WALL: No masses. No hernias. BONES: No significant or acute findings. OTHER: No other significant finding. IMPRESSION: 1. Percutaneous drain remains in place in the left lower quadrant with mild residual in formation remaining. On a single images there is a focal air collection which could represent divert iculum or residual abscess cavity. This measures approximately 5 x 6 mm in greatest diameter. Persi stent thickening of the descending colonic wall. 2. Persistent fluid collections in the pelvis. On the right the collection measures 5.4 x 4.0 cm in diameter. The left pelvic fluid collection measures 8.4 x 2.2 cm in size. TECHNICAL DOCUMENTATION: JOB ID: [id number] Quality ID # [id number]: Final reports with documentation of one or more dose reduction techniques (e.g., Au tomated exposure control, adjustment of the mA and/or kV according to patient size, use of iterative reconstruction technique) 2010 [facility]- All Rights Reserved Reading location - IP/workstation name: [email or web address]
== END ==
LOC: RAD 09:31
PROVIDERS: ATTEND Surgery
DX: K57.20 Diverticulitis of large intestine with perforation and abscess without bleeding (principal)
CPT/HCPCS: 74177; 82565

== ENCOUNTER → 2020-07-28 | Outpatient (CLI) | payer MEDICARE, MEDICAID ==
--- NOTE | 2020-07-28 14:57 | RADIOLOGY REPORT (SQ) ---
EXAM DESCRIPTION: CT ABD/PELVIS WITH IV ORAL IMAGES COMPLETED DATE/TIME: 07/28/2020 8:49 am REASON FOR STUDY: DIVERTICULITIS WITH PERFORATION K57.20 DVTRCLI OF LG INT W PERFORATION AND ABSCES S W/O BLEED COMPARISON: Multiple, most recent 07/03/2020 TECHNIQUE: CT scan of the abdomen and pelvis performed with intravenous and oral contrast using aida demetra scanning technique with dynamic intravenous contrast injection. Images reviewed with lung, soft t issue, and bone windows. Reconstructed coronal and sagittal MPR images reviewed. Delayed images for e valuation of the urinary system also acquired. All images stored on PACS. All CT scanners at this facility use dose modulation, iterative reconstruction, and/or weight based d osing when appropriate to reduce radiation dose to as low as reasonably achievable (ALARA). [facility]: Dose Right [facility]: CareDose [facility]: Dose Right [facility]: Teradose 4D [facility]: [employer] RENAL FUNCTION: GFR > 60. RADIATION DOSE: . LIMITATIONS: None. FINDINGS: LOWER CHEST: No significant findings. No nodules or infiltrates. LIVER: Normal size. No masses. No dilated ducts. SPLEEN: Normal size. No focal lesions. PANCREAS: No masses. No significant calcifications. No adjacent inflammation or peripancreatic fluid collections. Pancreatic duct not dilated. GALLBLADDER: No identified stones by CT criteria. No inflammatory changes to suggest cholecystitis. ADRENAL GLANDS: No significant masses or asymmetry. RIGHT KIDNEY AND URETER: No solid masses. No significant calcifications. No hydronephrosis or hyd roureter. LEFT KIDNEY AND URETER: No solid masses. No significant calcifications. No hydronephrosis or hydr oureter. AORTA AND VESSELS: No aneurysm. No dissection. Renal arteries, SMA, celiac without stenosis. RETROPERITONEUM: No retroperitoneal adenopathy, hemorrhage or masses. BOWEL AND PERITONEAL CAVITY: Percutaneous left pelvic drain has been removed. 2.5 x 2.6 cm contained extraluminal or intramural gas pocket without associated inflammatory change posterior sigmoid colon wall near the site of the previous drain tip. Stable bilateral simple fluid collections on either s quirino of the pelvic wall measuring up to 20 HU. APPENDIX: Not visualized. PELVIS: See above. Enlarged fibroid uterus. ABDOMINAL WALL: No masses. No hernias. BONES: No significant or acute findings. OTHER: No other significant finding. IMPRESSION: Resolving sigmoid diverticulitis with small amount of contained extraluminal or intramur al gas near the site of the previous drain tip. No gas fluid collection. TECHNICAL DOCUMENTATION: JOB ID: [id number] Quality ID # [id number]: Final reports with documentation of one or more dose reduction techniques (e.g., Au tomated exposure control, adjustment of the mA and/or kV according to patient size, use of iterative reconstruction technique) 2010 [employer]- All Rights Reserved Reading location - IP/workstation name: [email or web address]
== END ==
LOC: RAD 07:33
PROVIDERS: ATTEND Surgery
DX: K57.20 Diverticulitis of large intestine with perforation and abscess without bleeding (principal)
CPT/HCPCS: 74177